=== PATIENT | male | born 1960 | race Caucasian/White ===

== ENCOUNTER 2022-02-08 09:08 | Emergency (ER) | payer OTHER, MEDICAID, SELFPAY ==
[2022-02-08] VITALS (11 sets, daily range): BP systolic 111–170; BP diastolic 68–94; PULSE 65–85; RESP 6–23; TEMP 36.2; O2SAT 96–99; BMI 33.4
--- NOTE | 2022-02-08 09:17 | DI.RAD.S_ITS ---
PROCEDURE: XR CHEST 1V INDICATIONS: chest pain TECHNIQUE: One view of the chest was acquired. COMPARISON: [facility], CR, XR HUMERUS RT 2V, 02/08/2022, 9:46. FINDINGS: Surgical changes and devices: None. Lungs and pleura: Lungs are clear. No pleural effusions or pneumothorax. Mediastinum: Mediastinal contours appear normal. Heart size is normal. Bones and chest wall: No suspicious bony lesions. Overlying soft tissues appear unremarkable. IMPRESSION: Portable chest within normal limits. Dictated by: Rodger Angeles M.D. on 02/08/2022 at 9:11 Approved by: Rodger Angeles M.D. on 02/08/2022 at 9:11
--- NOTE | 2022-02-08 09:40 | ED_ITS ---
HPI - General Adult General Chief complaint: Syncope Stated complaint: Syncope Time Seen by Provider: 02/08/22 09:13 Source: patient Mode of arrival: Family Vehicle History of Present Illness HPI narrative: 61-year-old gentleman with a history of type 1 diabetes on Levemir and heme along, Eliquis for prior strokes, lisinopril and atorvastatin presents with vomiting since the . States vomiting simply started with no preceding fevers or stomach discomfort. He had a single episode of fecal incontinence that had completely undigested food. After 2 days persistent morning he noted some black debris in the discharge in was concerned that he irritated his stomach ulcer. He had a friend bring him some milk and that was able to calm down the vomiting and was stomach issues. He notes his blood sugars have been in the 200 range over a time period. He does not describe chest pain or dyspnea. He has not had overt abdominal pain. He has not had any black stools and the black debris in the emesis has been absent for the last 48 hours. He still somewhat lightheaded when he is standing and today in the shower had a syncopal episode he fell landing on his right shoulder and complains of upper arm pain and has an abrasion to that area. He did not hit his head with the fall. He is awake alert and has no additional complaints at this time. Related Data Previous Rx's Medication Instructions Recorded morphine 15 mg immediate release 15 mg PO Q6H PRN #14 tab 02/08/22 tablet ondansetron 4 mg disintegrating 4 mg PO Q8H PRN #14 tab 02/08/22 tablet Allergies Allergy/AdvReac Type Severity Reaction Status Date / Time fentanyl AdvReac Verified 02/08/22 11:13 hydrocodone AdvReac Verified 02/08/22 11:13 Review of Systems Review of Systems Narrative: Remainder of complete review of systems is otherwise unremarkable except for that included in the HPI. Patient History Medical History Hyperlipidemia Hypertension Stroke Type 1 diabetes Social History Smoking Status: Former smoker Smoking Status: Former smoker alcohol intake frequency: 0-2 drinks per day Substance Use Type: does not use Exam Initial Vital Signs Initial Vital Signs: Vital Signs Pulse Rate 74 02/08/22 09:18 Respiratory Rate 21 02/08/22 09:18 General: Healthy appearing, in no acute distress. Nontoxic. Able to give a complete and coherent history. Well-nourished well-developed HEENT: Moist mucous membranes despite reports of persistent emesis and minimal intake normal sclera with reactive pupils, Neck: No JVD, supple Respiratory: Lungs are clear to auscultation, no wheezing no rales no rhonchi. Full and symmetrical air movement Cardiac: Regular rate and rhythm no murmurs no bruits Abdomen: Soft, nontender, good bowel tones, no flank pain Skin: Warm and dry, mild abrasion over the lateral aspect of the right upper arm. Neurologic: Grossly neurologically intact with no obvious asymmetries or abnormalities Extremities: Mild tenderness to the proximal humerus without tenderness to the shoulder joint, clavicle AC joint, neurovascularly intact distally Psych: Cooperative, appropriate insight and affect Course Orders Ordered: ED Orders 02/08/22 09:17 XR chest 1V Stat EKG-12 Lead Stat 02/08/22 09:38 Complete Blood Count AUTO DIFF Stat Comprehensive Metabolic Panel Stat Lipase Stat Magnesium Stat Troponin & CK Cardiac Panel Stat 02/08/22 09:46 XR humerus RT 2V Stat Discontinued Medications Sodium Chloride (Normal Saline 0.9%) 1,000 mls @ 1,000 mls/hr IV BOLUS ONE Stop: 02/08/22 10:45 Last Infusion: 02/08/22 15:03 Dose: 0 mls/hr Documented by: Admin: 02/08/22 11:18 Dose: 1,000 mls/hr Documented by: TAVARES Sodium Chloride (Normal Saline 0.9%) 1,000 mls @ 1,000 mls/hr IV BOLUS ONE Stop: 02/08/22 12:09 Last Infusion: 02/08/22 11:51 Dose: 0 mls/hr Documented by: Admin: 02/08/22 10:00 Dose: 1,000 mls/hr Documented by: SHAILESH Morphine Sulfate (Morphine 10 Mg/0.5 Ml Oral Syringe) 10 mg PO NOW ONE Stop: 02/08/22 13:51 Last Admin: 02/08/22 14:07 Dose: Not Given Documented by: KVNG Morphine Sulfate (Morphine Ir 15 Mg Tablet) 15 mg PO NOW ONE Stop: 02/08/22 13:54 Last Admin: 02/08/22 14:40 Dose: 15 mg Documented by: KVNG Ondansetron HCl (Ondansetron 4 Mg/2 Ml Inj) 4 mg IV NOW ONE Stop: 02/08/22 09:47 Vital Signs Vital signs: Vital Signs - 8 hr 02/08/22 10:30 02/08/22 11:00 02/08/22 11:13 Pulse Rate 65 70 Pulse Rate [Orthostatic Lying] 70 Pulse Rate [Orthostatic Standing] 85 Respiratory Rate 15 6 L Blood Pressure 130/72 161/94 H Pulse Oximetry 97 97 02/08/22 11:30 02/08/22 12:00 02/08/22 15:04 Pulse Rate 69 66 77 Pulse Rate [Orthostatic Lying] Pulse Rate [Orthostatic Standing] Respiratory Rate 19 13 20 Blood Pressure 152/88 H 138/68 170/89 H Pulse Oximetry 99 96 96 Medical Decision Making Lab Data Lab results narrative: Anion gap is normal at 11.0 Result diagrams: 02/08/22 09:38 02/08/22 09:38 Labs: Lab Results 02/08/22 02/08/22 Range/Units 09:38 09:38 WBC 12.6 H (4.5-11.0) X10^3/uL RBC 5.52 (4.5-5.9) X10^6/uL Hgb 15.9 (13.5-17.5) g/dL Hct 47.9 (41-53) % MCV 86.7 (80-100) fL MCH 28.8 (26-34) PG MCHC 33.3 (30-36) % RDW 13.3 (11.6-14.8) % Plt Count 219 (150-400) X10^3/uL Neut % (Auto) 71.7 (50-75) % Lymph % (Auto) 15.9 L (25-40) % [place] % (Auto) 10.6 (3-14) % Eos % (Auto) 0.8 L (2-4) % Baso % (Auto) 1.0 (0-2) % Neut # (Auto) 9000 H (6718-1761) /uL Lymph # (Auto) 2000 (3782-7475) /uL [place] # (Auto) 1300 H (0-900) /uL Eos # (Auto) 100 (0-450) /uL Baso # (Auto) 100 (0-100) /uL Sodium 131 L (137-145) mmol/L Potassium 3.9 (3.4-5.1) mmol/L Chloride 94 L (98-107) mmol/L Carbon Dioxide 26 (22-32) mmol/L BUN 52 H (9-20) mg/dL Creatinine 1.51 H (0.66-1.25) mg/dL Estimated GFR 52 L (>60) mL/min BUN/Creatinine Ratio 34.4 H (6-22) Glucose 213 H (80-110) mg/dL Calcium 9.1 (8.4-10.2) mg/dL Magnesium 1.8 (1.6-2.3) mg/dL Total Bilirubin 1.3 (0.2-1.3) mg/dL AST 31 (17-59) IU/L ALT 29 (<50) IU/L Alkaline Phosphatase 78 (38-126) U/L Total Creatine Kinase 235 H (55-170) U/L CK-MB (CK-2) 4.68 H (<2.37) ng/mL CK-MB (CK-2) Rel Index 2.0 (1.5-5.0) % Troponin I 0.021 (0.01-0.034) ng/mL Total Protein 7.1 (6.3-8.2) g/dL Albumin 3.9 (3.5-5.0) g/dL Globulin 3.2 (1.7-4.1) g/dL Albumin/Globulin Ratio 1.2 (1.0-2.8) Lipase 65 (23-300) U/L Imaging Data Chest x-ray: Radiologist's Impression: FINDINGS:? ? Surgical changes and devices:? None.? ? Lungs and pleura:? Lungs are clear.? No pleural effusions or pneumothorax.? ? Mediastinum:? Mediastinal contours appear normal.? Heart size is normal.? ? Bones and chest wall:? No suspicious bony lesions.? Overlying soft tissues appear unremarkable.? ? ? IMPRESSION:? ? Portable chest within normal limits. ? ? ? Dictated by: Rodger Angeles M.D. on 02/08/2022 at 9:11? ?? Humerus XR: Radiologist's Impression: FINDINGS:? ? Bones:? No fractures or dislocations.? No suspicious bony lesions.? ? Of the humeral head can be seen.? Age-appropriate bony degenerative changes are seen, including mild subacromial spurring. ? Soft tissues:? A mild amount of right shoulder calcific tendinopathy can be seen. The visualized lung demonstrates an unremarkable appearance. ? ? IMPRESSION:? Degenerative and postoperative change, without an acute plain film abnormality seen. ? ? Dictated by: Rodger Angeles M.D. on 02/08/2022 at 9:11? ?? ECG Data Interpretation: Sinus rhythm at a rate of 71 Normal intervals, normal axis No acute ischemic changes MDM Narrative Medical decision making narrative: 61-year-old gentleman with history of type 1 diabetes had what he felt was food poisoning initially the vomiting then led to irritation of his stomach ulcer with minor episodes of black emesis (no signs of acute blood loss with hemoglobin 15.9 and hematocrit 47.9), then an episode of undigested food completely transiting and causing fecal incontinence with recurrent vomiting over the last 48 hours. There is no sign of infection, diabetic ketoacidosis, surgical abdomen or bowel obstruction, acute coronary syndrome. Uncertain etiology for his nausea. He has been given of L of fluid. Creatinine is slightly elevated at 1.5 with no prior for comparison. After the 1 L of fluid he has of pulse rise of 15 beats when standing will go ahead and do a 2 L of fluid. With the complaints of the right upper arm pain, there is no evidence of fracture, dislocation or obvious soft tissue injury. He will be placed in a sling for comfort and instructed to follow-up with his primary care doctor or or thopedics if the area continues to worsen. In the past, oral morphine has been effective for him for pain control. He does not get the ?high? feeling but it is effective for controlling the pain. Will give him a brief prescription of this. Be discharged home with Zofran to help with nausea. Questions are answered and he is safe for home discharge Discharge Plan Departure Patient Disposition: Home Clinical Impression: Syncope due to orthostatic hypotension, Type 1 diabetes, Contusion of arm, right Nausea & vomiting Qualifiers: Vomiting type: unspecified Qualified Code(s): R11.2 - Nausea with vomiting, unspecified Instructions: DI for Orthostatic Hypotension, DI for Arm Pain Activity Restrictions/Additional Instructions: Thank you for coming in today I am sorry that your having so much vomiting. Your given 2 L of fluid and this definitely helped with your orthostatic hypotension. You did injure your upper arm however there are no broken bones. You have been given a sling for comfort. I will give you an additional prescription for oral morphine to help with pain at home. I will give you oral Zofran to have should you have additional nausea at home Your workup otherwise was quite reassuring. There is no evidence of acute infection, diabetic ketoacidosis, heart attack or stroke. If you find that you are getting worse or develop any new symptoms, please feel free to return to the emergency department for further evaluation. Prescriptions: New morphine 15 mg tablet 15 mg PO Q6H PRN (Reason: pain) Qty: 14 0RF ondansetron 4 mg tablet,disintegrating 4 mg PO Q8H PRN (Reason: nausea and vomiting) Qty: 14 0RF Referrals: Amaya Jackson ARNP [Primary Care Provider] -
--- NOTE | 2022-02-08 09:46 | DI.RAD.S_ITS ---
PROCEDURE: XR HUMERUS RT 2V INDICATIONS: fall, pain TECHNIQUE: 2 views of the humerus were acquired. COMPARISON: [facility], CR, XR CHEST 1V, 02/08/2022, 9:26. FINDINGS: Bones: No fractures or dislocations. No suspicious bony lesions. Of the humeral head can be seen. Age-appropriate bony degenerative changes are seen, including mild subacromial spurring. Soft tissues: A mild amount of right shoulder calcific tendinopathy can be seen. The visualized lung demonstrates an unremarkable appearance. IMPRESSION: Degenerative and postoperative change, without an acute plain film abnormality seen. Dictated by: Rodger Angeles M.D. on 02/08/2022 at 9:11 Approved by: Rodger Angeles M.D. on 02/08/2022 at 9:12
[2022-02-08 09:47] LABS: Add Manual Diff / Slide Review NO; Basophils Absolute Auto 100 /uL (0-100); Eosinophils Absolute Auto 100 /uL (0-450); Eosinophils Percent Auto 0.8 % (2-4); Hematocrit 47.9 % (41-53); Hemoglobin 15.9 g/dL (13.5-17.5); Lymphocytes Absolute Auto 2000 /uL (1100-4500); Lymphocytes Percent Auto 15.9 % (25-40); Mean Corpuscular HGB Conc 33.3 % (30-36); Mean Corpuscular Hemoglobin 28.8 PG (26-34); Mean Corpuscular Volume 86.7 fL (80-100); Monocytes Absolute Auto 1300 /uL (0-900); Monocytes Percent Auto 10.6 % (3-14); Neutrophils Absolute Auto 9000 /uL (1500-7000); Neutrophils Percent Auto 71.7 % (50-75); Platelet Count 219 X10^3/uL (150-400); Red Blood Cell Count 5.52 X10^6/uL (4.5-5.9); Red Cell Distribution Width 13.3 % (11.6-14.8); White Blood Cell Count 12.6 X10^3/uL (4.5-11.0)
[2022-02-08 10:00] LABS: Alanine Aminotransferase 29 IU/L (<50); Albumin 3.9 g/dL (3.5-5.0); Albumin Globulin Ratio 1.2 (1.0-2.8); Alkaline Phosphatase 78 U/L (38-126); Aspartate Aminotransferase 31 IU/L (17-59); BUN Creatinine Ratio 34.4 (6-22); Bilirubin Total 1.3 mg/dL (0.2-1.3); Blood Urea Nitrogen 52 mg/dL (9-20); Calcium 9.1 mg/dL (8.4-10.2); Carbon Dioxide 26 mmol/L (22-32); Chloride 94 mmol/L (98-107); Creatine Kinase 235 U/L (55-170); Estimated Glomerular Filt Rate 52 mL/min (>60); Globulin 3.2 g/dL (1.7-4.1); Glucose 213 mg/dL (80-110); HEMOLYSIS < 15 (0-50); Lipase 65 U/L (23-300); Magnesium 1.8 mg/dL (1.6-2.3); Potassium 3.9 mmol/L (3.4-5.1); Sodium 131 mmol/L (137-145); Total Protein 7.1 g/dL (6.3-8.2)
[2022-02-08] MEDS: SODIUM CHLORIDE 0.9% 1,000 ML 1000 ML IV ×2 (10:00→11:18)
[2022-02-08 10:12] LABS: Troponin I 0.021 ng/mL (0.01-0.034)
[2022-02-08 10:15] LABS: Creatine Kinase MB 4.68 ng/mL (<2.37)
[2022-02-08] MEDS: MORPHINE IR 15 MG TABLET PO (14:40)
--- NOTE | 2022-02-08 15:04 | PC.NURSE ---
1455 pt amb ind with steady gait denies further nausea/dizziness alert/oriented x3 taking po fluids distal CMS intact to RUE with sling applied
== END 2022-02-08 15:30 | disposition home or self-care (01) ==
PROVIDERS: Emergency Provider Emergency Medicine; PCP Nurse Practitioner
DX: I95.1 Orthostatic hypotension (principal); R11.2 Nausea with vomiting, unspecified; S40.021A Contusion of right upper arm, initial encounter; Z79.01 Long term (current) use of anticoagulants
CPT/HCPCS: 36415; 71045; 73060; 80053; 82550; 82553; 83690; 83735; 84484; 85025; 93005; 96360; 96361; 99284

== ENCOUNTER 2022-06-20 10:34 | Observation (INO) | payer OTHER, MEDICAID, SELFPAY ==
[2022-06-20] VITALS (45 sets, daily range): BP systolic 101–207; BP diastolic 57–101; PULSE 67–106; RESP 0–34; TEMP 36.5–36.6; O2SAT 93–102; BMI 79.9; BMI 36.2
--- NOTE | 2022-06-20 11:13 | DI.RAD.S_ITS ---
PROCEDURE: XR CHEST 1V INDICATIONS: possible DKA TECHNIQUE: One view of the chest was acquired. COMPARISON: [facility], , XR CHEST 1V, 02/08/2022, 9:26. FINDINGS: Surgical changes and devices: An anchor can be seen involving the right humeral head. Lungs and pleura: On this semiupright portable chest examination, no large pneumothorax or large pleural effusions are seen. No focal infiltrates are seen. Mediastinum: Mediastinal contours appear normal. Heart size is normal. Bones and chest wall: Age-appropriate bony degenerative changes are seen. No suspicious bony lesions. Overlying soft tissues appear unremarkable. IMPRESSION: Portable chest within normal limits. Dictated by: Rodger Angeles M.D. on 06/20/2022 at 10:35 Approved by: Rodger Angeles M.D. on 06/20/2022 at 10:35
[2022-06-20] MEDS: SODIUM CHLORIDE 0.9% 1,000 ML 1000 ML IV ×2 (11:26→14:04)
[2022-06-20] MEDS: LABETALOL 20 MG/4 ML SYRINGE IV ×2 (11:26→14:03)
[2022-06-20 11:28] LABS: Add Manual Diff / Slide Review NO; Basophils Absolute Auto 100 /uL (0-100); Basophils Percent Auto 0.5 % (0-2); Eosinophils Absolute Auto 0 /uL (0-450); Hematocrit 48.1 % (41-53); Hemoglobin 15.9 g/dL (13.5-17.5); Lymphocytes Absolute Auto 800 /uL (1100-4500); Mean Corpuscular HGB Conc 33.1 % (30-36); Mean Corpuscular Hemoglobin 28.8 PG (26-34); Mean Corpuscular Volume 87.2 fL (80-100); Monocytes Absolute Auto 300 /uL (0-900); Monocytes Percent Auto 1.6 % (3-14); Neutrophils Absolute Auto 15400 /uL (1500-7000); Neutrophils Percent Auto 92.9 % (50-75); Platelet Count 268 X10^3/uL (150-400); Red Blood Cell Count 5.51 X10^6/uL (4.5-5.9); Red Cell Distribution Width 13.3 % (11.6-14.8); White Blood Cell Count 16.6 X10^3/uL (4.5-11.0)
[2022-06-20 11:39] LABS: Lipase 220 U/L (23-300); Magnesium 1.5 mg/dL (1.6-2.3)
[2022-06-20 11:41] LABS: Alanine Aminotransferase 28 IU/L (<50); Albumin 4.4 g/dL (3.5-5.0); Albumin Globulin Ratio 1.2 (1.0-2.8); Alkaline Phosphatase 89 U/L (38-126); Aspartate Aminotransferase 36 IU/L (17-59); BUN Creatinine Ratio 23.6 (6-22); Bilirubin Total 1.2 mg/dL (0.2-1.3); Blood Urea Nitrogen 21 mg/dL (9-20); Calcium 9.3 mg/dL (8.4-10.2); Carbon Dioxide 19 mmol/L (22-32); Chloride 99 mmol/L (98-107); Estimated Glomerular Filt Rate > 60 mL/min (>60); Globulin 3.8 g/dL (1.7-4.1); Glucose 370 mg/dL (80-110); Potassium 4.9 mmol/L (3.4-5.1); Sodium 135 mmol/L (137-145); Total Protein 8.2 g/dL (6.3-8.2)
[2022-06-20 11:42] LABS: Ketones (Beta-Hydroxybutyrate) 3.66 mmol/L (<0.27)
[2022-06-20 11:45] LABS: HEMOLYSIS 117 (0-50)
[2022-06-20 11:49] LABS: NT-proBNP (BNP-Adult 18+) 52 pg/mL (<125)
[2022-06-20 11:56] LABS: Procalcitonin 0.07 ng/mL (<0.5)
[2022-06-20 12:06] LABS: pH ABG 7.47 (7.35-7.45)
[2022-06-20 12:07] LABS: Fractionated Inspired Oxygen 20; HCO3 ABG 18 mmol/L (22-26); Oxygen Saturation ABG 99 % (95-100); PCO2 ABG 23.9 mmHg (35-45); PO2 ABG 128 mmHg (80-100); TCO2 ABG 18 mmol/L (21-31)
[2022-06-20 12:14] LABS: Lactate (Lactic Acid) 4.4 mmol/L (0.7-2.1)
[2022-06-20 12:57] LABS: Bilirubin Urine UA NEGATIVE (NEGATIVE); Color Urine UA YELLOW; Glucose Urine UA 2+ g/dL (Negative); Ketones Urine UA 2+ (NEGATIVE); Leukocyte Esterase Urine UA NEGATIVE (NEGATIVE); Nitrite Urine UA NEGATIVE (Negative); Occult Blood Urine UA 1+ (Negative); Protein Urine UA 3+ (Negative); Specific Gravity Urine UA 1.015 (1.000-1.035); Urobilinogen Urine UA 0.2 E.U./dL (0.2)
[2022-06-20 12:59] LABS: Appearance Urine UA Slightly Cloudy
[2022-06-20] MEDS: METOCLOPRAMIDE 10 MG/2 ML INJ IV (13:04)
[2022-06-20 13:05] LABS: Amorphous Sediment Urine 1+; Bacteria Urine None Seen; Culture Indicated Urine Cult Not Indicated; RBC Urine 1-5/HPF (0-5/HPF); Squamous Epithelial Cell Urine 0-1 /HPF (0-5/HPF); WBC Urine 0-1/HPF (0-5/HPF)
--- NOTE | 2022-06-20 13:13 | ED.NAVMDI ---
HPI - Nausea/Vomiting/Diarrhea General Chief complaint: Nausea/Vomiting/Diarrhea Stated complaint: nausea, vomting, diarrhea Time Seen by Provider: 06/20/22 11:11 Source: EMS Mode of arrival: EMS History of Present Illness HPI Narrative: 61-year-old gentleman with history of type 1 diabetes, hypertension, prior stroke currently on Eliquis, hyperlipidemia who presents with abdominal pain that started yesterday, increased nausea to the point he was unable to tolerate any fluid last night. He is having watery nonbloody diarrhea associated with abdominal pain. He has not had any recent antibiotics. He states that he has had a minor cough but nothing that has particularly bothered him. He does note that yesterday he did began having some mild dysuria but no overt flank pain He complains of no headaches or neck stiffness. He notes that he does have bed bug bites on his ankles and wrists, there are bed bugs in his home and he is aware, his mother with whom he used to live approximately 2 weeks ago and dealing with the bedbugs has not been something he has yet had a chance to do. He describes no chest pain or palpitations. No paresthesias but does complain of overall global weakness. Related Data Previous Rx's Medication Instructions Recorded morphine 15 mg immediate release 15 mg PO Q6H PRN pain #14 tabs 02/08/22 tablet ondansetron 4 mg disintegrating 4 mg PO Q8H PRN nausea and 02/08/22 tablet vomiting #14 tabs Allergies Allergy/AdvReac Type Severity Reaction Status Date / Time fentanyl AdvReac Verified 02/08/22 11:13 hydrocodone AdvReac Verified 02/08/22 11:13 Review of Systems Review of Systems Narrative: Remainder of complete review of systems is otherwise unremarkable except for that included in the HPI. Patient History Medical History Hyperlipidemia Hypertension Stroke Type 1 diabetes Social History Smoking Status: Former smoker Smoking Status: Former smoker alcohol intake frequency: 0-2 drinks per day Substance Use Type: does not use Exam Initial Vital Signs Initial Vital Signs: Vital Signs Pulse Rate 106 H 06/20/22 10:41 Respiratory Rate 22 06/20/22 10:41 Pulse Oximetry 97 06/20/22 10:41 General: Intermittent vomiting, mildly pale but Able to give a complete and coherent history. Well-nourished well-developed HEENT: Dry mucous membranes, normal sclera with reactive pupils, Neck: No JVD, supple Respiratory: Lungs are clear to auscultation, no wheezing no rales no rhonchi. Full and symmetrical air movement Cardiac: Regular rate and rhythm no murmurs no bruits Abdomen: Soft, tender in the right lower/middle and upper quadrants without rebound or guarding. 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 No obvious infection. He has significant onychomycosis Neurologic: Globally weak but Grossly neurologically intact with no obvious asymmetries or abnormalities Extremities: No trauma, Psych: Cooperative, appropriate insight and affect Course Orders Ordered: ED Orders 06/20/22 10:45 Blood Culture Stat Complete Blood Count AUTO DIFF Stat Comprehensive Metabolic Panel Stat Ketones (Beta-Hydroxybutyrate) Stat Lactate (Lactic Acid) Stat Lipase Stat Magnesium Stat NT-proBNP (BNP-Adult 18+) Stat Procalcitonin Stat Troponin I Stat 06/20/22 11:13 XR chest 1V Stat EKG-12 Lead Stat 06/20/22 11:44 Arterial Blood Gas Stat 06/20/22 12:15 Urinalysis and Microscopic Stat 06/20/22 12:50 Respiratory Panel (Film Array) Stat 06/20/22 13:27 CT abdomen pelvis w con Stat INSULIN DRIP PREMIX (Myxredlin Drip Premix) 100 unit in 100 mls @ 6 mls/hr IV TITRATE ISIS; Protocol Last Titration: 06/20/22 16:07 Dose: 8 mls/hr, 8 mls/hr Documented By: KAEL Co-signed By: KASI Admin: 06/20/22 14:07 Dose: 6 mls/hr, 6 mls/hr Documented By: KAEL Co-signed By: BRONSON Sodium Chloride (Normal Saline 0.9%) 1,000 mls @ 150 mls/hr IV CONT ISIS Last Admin: 06/20/22 16:28 Dose: 150 mls/hr Discontinued Medications Sodium Chloride (Normal Saline 0.9%) 1,000 mls @ 1,000 mls/hr IV BOLUS ONE Stop: 06/20/22 12:10 Last Infusion: 06/20/22 12:40 Dose: 0 mls/hr Documented By: Admin: 06/20/22 11:26 Dose: 1,000 mls/hr Documented By: KAEL Sodium Chloride (Normal Saline 0.9%) 1,000 mls @ 1,000 mls/hr IV BOLUS ONE Stop: 06/20/22 14:28 Last Infusion: 06/20/22 16:07 Dose: 0 mls/hr Documented By: Admin: 06/20/22 14:04 Dose: 1,000 mls/hr Documented By: KAEL Piperacillin Sod/Tazobactam (Sod 4.5 gm/ Sodium Chloride) 100 mls @ 200 mls/hr IV NOW ONE Stop: 06/20/22 13:30 Last Infusion: 06/20/22 14:48 Dose: 0 mls/hr Documented By: Admin: 06/20/22 14:04 Dose: 200 mls/hr Documented By: KAEL Labetalol HCl (Labetalol 20 Mg/4 Ml Syringe) 20 mg IV NOW ONE Stop: 06/20/22 11:16 Last Admin: 06/20/22 11:26 Dose: 20 mg Documented By: KAEL Labetalol HCl (Labetalol 20 Mg/4 Ml Syringe) 20 mg IV NOW ONE Stop: 06/20/22 13:30 Last Admin: 06/20/22 14:03 Dose: 20 mg Documented By: KAEL Metoclopramide HCl (Metoclopramide 10 Mg/2 Ml Inj) 10 mg IV NOW ONE Stop: 06/20/22 12:57 Last Admin: 06/20/22 13:04 Dose: 10 mg Documented By: MARCELLUS Vital Signs Vital signs: Vital Signs - 8 hr 06/20/22 10:56 06/20/22 11:26 06/20/22 11:49 Temperature 97.7 F Pulse Rate 104 H 98 H 67 Respiratory Rate 22 20 Blood Pressure 197/99 H 200/89 H 168/79 H Pulse Oximetry 100 102 H Oxygen Delivery Method Room Air Room Air 06/20/22 12:27 06/20/22 10:41 06/20/22 10:43 Temperature Pulse Rate 96 H 106 H Respiratory Rate 22 Blood Pressure 175/85 H 197/99 H Pulse Oximetry 97 Oxygen Delivery Method 06/20/22 10:43 06/20/22 11:00 06/20/22 11:00 Temperature Pulse Rate 104 H 88 Respiratory Rate 21 20 Blood Pressure 200/89 H Pulse Oximetry 100 Oxygen Delivery Method 06/20/22 11:30 06/20/22 11:30 06/20/22 11:39 Temperature Pulse Rate 101 H 94 H Respiratory Rate 18 18 Blood Pressure 197/101 H Pulse Oximetry 99 100 Oxygen Delivery Method 06/20/22 11:39 06/20/22 11:40 06/20/22 11:40 Temperature Pulse Rate 91 H Respiratory Rate 11 L Blood Pressure 198/97 H 195/92 H Pulse Oximetry 100 Oxygen Delivery Method 06/20/22 11:43 06/20/22 11:43 06/20/22 12:00 Temperature Pulse Rate 92 H Respiratory Rate 10 L Blood Pressure 168/79 H 175/85 H Pulse Oximetry 100 Oxygen Delivery Method 06/20/22 12:00 06/20/22 12:30 06/20/22 12:31 Temperature Pulse Rate 90 93 H Respiratory Rate 9 L 30 H Blood Pressure 207/92 H Pulse Oximetry 97 Oxygen Delivery Method 06/20/22 12:31 06/20/22 13:30 06/20/22 14:03 Temperature Pulse Rate 94 H 97 H 94 H Respiratory Rate 29 H 17 Blood Pressure 171/76 H 174/80 H Pulse Oximetry 96 Oxygen Delivery Method Room Air 06/20/22 13:00 06/20/22 13:01 06/20/22 13:01 Temperature Pulse Rate 94 H 95 H Respiratory Rate 22 25 H Blood Pressure 171/76 H Pulse Oximetry 100 100 Oxygen Delivery Method 06/20/22 13:30 06/20/22 13:31 06/20/22 13:31 Temperature Pulse Rate 98 H 97 H Respiratory Rate 19 19 Blood Pressure 191/93 H Pulse Oximetry Oxygen Delivery Method 06/20/22 13:53 06/20/22 13:53 06/20/22 14:00 Temperature Pulse Rate 98 H Respiratory Rate 12 Blood Pressure 176/89 H 174/80 H Pulse Oximetry 100 Oxygen Delivery Method 06/20/22 14:00 06/20/22 14:13 06/20/22 14:13 Temperature Pulse Rate 101 H 100 H Respiratory Rate 0 L 15 Blood Pressure 164/81 H Pulse Oximetry 98 98 Oxygen Delivery Method 06/20/22 14:17 06/20/22 14:17 06/20/22 14:30 Temperature Pulse Rate 97 H Respiratory Rate 21 Blood Pressure 169/92 H 176/85 H Pulse Oximetry 98 Oxygen Delivery Method 06/20/22 14:30 06/20/22 15:00 06/20/22 15:00 Temperature Pulse Rate 93 H 90 Respiratory Rate 24 16 Blood Pressure 183/85 H Pulse Oximetry 98 96 Oxygen Delivery Method 06/20/22 15:29 06/20/22 15:30 06/20/22 15:32 Temperature Pulse Rate 97 H 98 H Respiratory Rate 17 Blood Pressure 179/82 H 179/82 H Pulse Oximetry 93 Oxygen Delivery Method MDM - Nausea/Vomiting/Diarrhea Lab Data Result diagrams: 06/20/22 10:45 06/20/22 10:45 Labs: Lab Results 06/20/22 06/20/22 06/20/22 Range/Units 10:45 10:45 10:45 WBC 16.6 H (4.5-11.0) X10^3/uL RBC 5.51 (4.5-5.9) X10^6/uL Hgb 15.9 (13.5-17.5) g/dL Hct 48.1 (41-53) % MCV 87.2 (80-100) fL MCH 28.8 (26-34) PG MCHC 33.1 (30-36) % RDW 13.3 (11.6-14.8) % Plt Count 268 (150-400) X10^3/uL Neut % (Auto) 92.9 H (50-75) % Lymph % (Auto) 5.0 L (25-40) % [place] % (Auto) 1.6 L (3-14) % Eos % (Auto) 0.0 L (2-4) % Baso % (Auto) 0.5 (0-2) % Neut # (Auto) 05668 H (8029-3900) /uL Lymph # (Auto) 800 L (3069-8300) /uL [place] # (Auto) 300 (0-900) /uL Eos # (Auto) 0 (0-450) /uL Baso # (Auto) 100 (0-100) /uL ABG pH (7.35-7.45) ABG pCO2 (35-45) mmHg ABG pO2 (80-100) mmHg ABG HCO3 (22-26) mmol/L ABG Total CO2 (21-31) mmol/L ABG O2 Saturation (95-100) % ABG Base Excess (-2-2) mmol/L FiO2 Sodium 135 L (137-145) mmol/L Potassium 4.9 (3.4-5.1) mmol/L Chloride 99 (98-107) mmol/L Carbon Dioxide 19 L (22-32) mmol/L BUN 21 H (9-20) mg/dL Creatinine 0.89 (0.66-1.25) mg/dL Estimated GFR > 60 (>60) mL/min BUN/Creatinine Ratio 23.6 H (6-22) Glucose 370 H (80-110) mg/dL Lactate (0.7-2.1) mmol/L Calcium 9.3 (8.4-10.2) mg/dL Magnesium 1.5 L (1.6-2.3) mg/dL Total Bilirubin 1.2 (0.2-1.3) mg/dL AST 36 (17-59) IU/L ALT 28 (<50) IU/L Alkaline Phosphatase 89 (38-126) U/L Troponin I < 0.012 (0.01-0.034) ng/mL NT-Pro-B Natriuret Pep 52 (<125) pg/mL Total Protein 8.2 (6.3-8.2) g/dL Albumin 4.4 (3.5-5.0) g/dL Globulin 3.8 (1.7-4.1) g/dL Albumin/Globulin Ratio 1.2 (1.0-2.8) Lipase 220 (23-300) U/L Procalcitonin 0.07 (<0.5) ng/mL Urine Color Urine Appearance Urine pH (4.5-8.0) Ur Specific [place] (1.000-1.035) Urine Protein (Negative) Urine Glucose (UA) (Negative) g/dL Urine Ketones (NEGATIVE) Urine Occult Blood (Negative) Urine Nitrate (Negative) Urine Bilirubin (NEGATIVE) Urine Urobilinogen (0.2) E.U./dL Ur Leukocyte Esterase (NEGATIVE) Urine RBC (0-5/HPF) Urine WBC (0-5/HPF) Ur Squamous Epith Cells (0-5/HPF) Amorphous Sediment Urine Bacteria (None) Ur Culture Indicated? Stl C. cayetanensis PCR Stool Rotavirus (PCR) Stool Adenovirus (PCR) Stool Astrovirus (PCR) Stool Cryptosporidium PCR Stl E.coli Shiga Tox PCR St Sh/Enteroin Ecoli PCR Stool E coli O157 PCR Stl Enterotoxigenic E PCR Stool EPEC (PCR) Stl E. histolytica PCR Stool Giardia Lamblia PCR Stool Sapovirus (PCR) Stl P. shigelloides PCR St Y.enterocolitica PCR Stool Vibrio (PCR) Stl Vibrio cholerae PCR Stl Enteroaggr Ecoli PCR Stl Norovirus GI/GII PCR Ketones 3.66 H (<0.27) mmol/L Chlamy pneumoniae PCR (Not Detect) Adenovirus (PCR) (Not Detect) B. pertussis DNA (PCR) (Not Detecte) B.parapertussis DNA PCR (Not Detecte) Campylobacter (PCR) C. difficile Tox (PCR) Coronavirus OC43 (PCR) (Not Detect) Coronavirus HKU1 (PCR) (Not Detect) Coronavirus 229E (PCR) (Not Detect) SARS-CoV-2 (PCR) (Not Detecte) Coronavirus NL63 (PCR) (Not Detect) Human Metapneumovir PCR (Not Detect) Influenza Type A (PCR) (Not Detect) Influenza Type B (PCR) (Not Detect) M. pneumoniae (PCR) (Not Detect) Parainfluenza 1 (PCR) (Not Detect) Parainfluenza 2 (PCR) (Not Detect) Parainfluenza 3 (PCR) (Not Detect) Parainfluenza 4 (PCR) (Not Detect) RSV (PCR) (Not Detect) Entero/Rhino (PCR) (Not Detect) Salmonella (PCR) 06/20/22 06/20/22 06/20/22 Range/Units 10:45 11:44 12:15 WBC (4.5-11.0) X10^3/uL RBC (4.5-5.9) X10^6/uL Hgb (13.5-17.5) g/dL Hct (41-53) % MCV (80-100) fL MCH (26-34) PG MCHC (30-36) % RDW (11.6-14.8) % Plt Count (150-400) X10^3/uL Neut % (Auto) (50-75) % Lymph % (Auto) (25-40) % [place] % (Auto) (3-14) % Eos % (Auto) (2-4) % Baso % (Auto) (0-2) % Neut # (Auto) (6050-4174) /uL Lymph # (Auto) (9597-1599) /uL [place] # (Auto) (0-900) /uL Eos # (Auto) (0-450) /uL Baso # (Auto) (0-100) /uL ABG pH 7.47 H (7.35-7.45) ABG pCO2 23.9 L* (35-45) mmHg ABG pO2 128 H (80-100) mmHg ABG HCO3 18 L (22-26) mmol/L ABG Total CO2 18 L (21-31) mmol/L ABG O2 Saturation 99 (95-100) % ABG Base Excess -6.0 L (-2-2) mmol/L FiO2 20 Sodium (137-145) mmol/L Potassium (3.4-5.1) mmol/L Chloride (98-107) mmol/L Carbon Dioxide (22-32) mmol/L BUN (9-20) mg/dL Creatinine (0.66-1.25) mg/dL Estimated GFR (>60) mL/min BUN/Creatinine Ratio (6-22) Glucose (80-110) mg/dL Lactate 4.4 H* (0.7-2.1) mmol/L Calcium (8.4-10.2) mg/dL Magnesium (1.6-2.3) mg/dL Total Bilirubin (0.2-1.3) mg/dL AST (17-59) IU/L ALT (<50) IU/L Alkaline Phosphatase (38-126) U/L Troponin I (0.01-0.034) ng/mL NT-Pro-B Natriuret Pep (<125) pg/mL Total Protein (6.3-8.2) g/dL Albumin (3.5-5.0) g/dL Globulin (1.7-4.1) g/dL Albumin/Globulin Ratio (1.0-2.8) Lipase (23-300) U/L Procalcitonin (<0.5) ng/mL Urine Color Yellow Urine Appearance Slightly cloudy Urine pH 5.0 (4.5-8.0) Ur Specific [place] 1.015 (1.000-1.035) Urine Protein 3+ H (Negative) Urine Glucose (UA) 2+ H (Negative) g/dL Urine Ketones 2+ H (NEGATIVE) Urine Occult Blood 1+ H (Negative) Urine Nitrate Negative (Negative) Urine Bilirubin Negative (NEGATIVE) Urine Urobilinogen 0.2 (0.2) E.U./dL Ur Leukocyte Esterase Negative (NEGATIVE) Urine RBC 1-5/hpf (0-5/HPF) Urine WBC 0-1/hpf (0-5/HPF) Ur Squamous Epith Cells 0-1 /hpf (0-5/HPF) Amorphous Sediment 1+ Urine Bacteria None seen (None) Ur Culture Indicated? Cult not indicated Stl C. cayetanensis PCR Stool Rotavirus (PCR) Stool Adenovirus (PCR) Stool Astrovirus (PCR) Stool Cryptosporidium PCR Stl E.coli Shiga Tox PCR St Sh/Enteroin Ecoli PCR Stool E coli O157 PCR Stl Enterotoxigenic E PCR Stool EPEC (PCR) Stl E. histolytica PCR Stool Giardia Lamblia PCR Stool Sapovirus (PCR) Stl P. shigelloides PCR St Y.enterocolitica PCR Stool Vibrio (PCR) Stl Vibrio cholerae PCR Stl Enteroaggr Ecoli PCR Stl Norovirus GI/GII PCR Ketones (<0.27) mmol/L Chlamy pneumoniae PCR (Not Detect) Adenovirus (PCR) (Not Detect) B. pertussis DNA (PCR) (Not Detecte) B.parapertussis DNA PCR (Not Detecte) Campylobacter (PCR) C. difficile Tox (PCR) Coronavirus OC43 (PCR) (Not Detect) Coronavirus HKU1 (PCR) (Not Detect) Coronavirus 229E (PCR) (Not Detect) SARS-CoV-2 (PCR) (Not Detecte) Coronavirus NL63 (PCR) (Not Detect) Human Metapneumovir PCR (Not Detect) Influenza Type A (PCR) (Not Detect) Influenza Type B (PCR) (Not Detect) M. pneumoniae (PCR) (Not Detect) Parainfluenza 1 (PCR) (Not Detect) Parainfluenza 2 (PCR) (Not Detect) Parainfluenza 3 (PCR) (Not Detect) Parainfluenza 4 (PCR) (Not Detect) RSV (PCR) (Not Detect) Entero/Rhino (PCR) (Not Detect) Salmonella (PCR) 06/20/22 06/20/22 06/20/22 Range/Units 12:43 12:50 14:28 WBC (4.5-11.0) X10^3/uL RBC (4.5-5.9) X10^6/uL Hgb (13.5-17.5) g/dL Hct (41-53) % MCV (80-100) fL MCH (26-34) PG MCHC (30-36) % RDW (11.6-14.8) % Plt Count (150-400) X10^3/uL Neut % (Auto) (50-75) % Lymph % (Auto) (25-40) % [place] % (Auto) (3-14) % Eos % (Auto) (2-4) % Baso % (Auto) (0-2) % Neut # (Auto) (5423-8984) /uL Lymph # (Auto) (0897-3303) /uL [place] # (Auto) (0-900) /uL Eos # (Auto) (0-450) /uL Baso # (Auto) (0-100) /uL ABG pH (7.35-7.45) ABG pCO2 (35-45) mmHg ABG pO2 (80-100) mmHg ABG HCO3 (22-26) mmol/L ABG Total CO2 (21-31) mmol/L ABG O2 Saturation (95-100) % ABG Base Excess (-2-2) mmol/L FiO2 Sodium (137-145) mmol/L Potassium (3.4-5.1) mmol/L Chloride (98-107) mmol/L Carbon Dioxide (22-32) mmol/L BUN (9-20) mg/dL Creatinine (0.66-1.25) mg/dL Estimated GFR (>60) mL/min BUN/Creatinine Ratio (6-22) Glucose (80-110) mg/dL Lactate 3.7 H (0.7-2.1) mmol/L Calcium (8.4-10.2) mg/dL Magnesium (1.6-2.3) mg/dL Total Bilirubin (0.2-1.3) mg/dL AST (17-59) IU/L ALT (<50) IU/L Alkaline Phosphatase (38-126) U/L Troponin I (0.01-0.034) ng/mL NT-Pro-B Natriuret Pep (<125) pg/mL Total Protein (6.3-8.2) g/dL Albumin (3.5-5.0) g/dL Globulin (1.7-4.1) g/dL Albumin/Globulin Ratio (1.0-2.8) Lipase (23-300) U/L Procalcitonin (<0.5) ng/mL Urine Color Urine Appearance Urine pH (4.5-8.0) Ur Specific [place] (1.000-1.035) Urine Protein (Negative) Urine Glucose (UA) (Negative) g/dL Urine Ketones (NEGATIVE) Urine Occult Blood (Negative) Urine Nitrate (Negative) Urine Bilirubin (NEGATIVE) Urine Urobilinogen (0.2) E.U./dL Ur Leukocyte Esterase (NEGATIVE) Urine RBC (0-5/HPF) Urine WBC (0-5/HPF) Ur Squamous Epith Cells (0-5/HPF) Amorphous Sediment Urine Bacteria (None) Ur Culture Indicated? Stl C. cayetanensis PCR Cancelled Stool Rotavirus (PCR) Cancelled Stool Adenovirus (PCR) Cancelled Stool Astrovirus (PCR) Cancelled Stool Cryptosporidium PCR Cancelled Stl E.coli Shiga Tox PCR Cancelled St Sh/Enteroin Ecoli PCR Cancelled Stool E coli O157 PCR Cancelled Stl Enterotoxigenic E PCR Cancelled Stool EPEC (PCR) Cancelled Stl E. histolytica PCR Cancelled Stool Giardia Lamblia PCR Cancelled Stool Sapovirus (PCR) Cancelled Stl P. shigelloides PCR Cancelled St Y.enterocolitica PCR Cancelled Stool Vibrio (PCR) Cancelled Stl Vibrio cholerae PCR Cancelled Stl Enteroaggr Ecoli PCR Cancelled Stl Norovirus GI/GII PCR Cancelled Ketones (<0.27) mmol/L Chlamy pneumoniae PCR Not detected (Not Detect) Adenovirus (PCR) Not detected (Not Detect) B. pertussis DNA (PCR) Not detected (Not Detecte) B.parapertussis DNA PCR Not detected (Not Detecte) Campylobacter (PCR) Cancelled C. difficile Tox (PCR) Cancelled Coronavirus OC43 (PCR) Not detected (Not Detect) Coronavirus HKU1 (PCR) Not detected (Not Detect) Coronavirus 229E (PCR) Not detected (Not Detect) SARS-CoV-2 (PCR) Not detected (Not Detecte) Coronavirus NL63 (PCR) Not detected (Not Detect) Human Metapneumovir PCR Not detected (Not Detect) Influenza Type A (PCR) Not detected (Not Detect) Influenza Type B (PCR) Not detected (Not Detect) M. pneumoniae (PCR) Not detected (Not Detect) Parainfluenza 1 (PCR) Not detected (Not Detect) Parainfluenza 2 (PCR) Not detected (Not Detect) Parainfluenza 3 (PCR) Not detected (Not Detect) Parainfluenza 4 (PCR) Not detected (Not Detect) RSV (PCR) Not detected (Not Detect) Entero/Rhino (PCR) Not detected (Not Detect) Salmonella (PCR) Cancelled Point of Care Testing Glucose POC 347 Imaging Data Chest x-ray: Radiologist's Impression: FINDINGS:? ? Surgical changes and devices:? An anchor can be seen involving the right humeral head. ? Lungs and pleura:? On this semiupright portable chest examination, no large pneumothorax or large pleural effusions are seen.? No focal infiltrates are seen.? ? Mediastinum:? Mediastinal contours appear normal.? Heart size is normal.? ? Bones and chest wall:? Age-appropriate bony degenerative changes are seen.? No suspicious bony lesions.? Overlying soft tissues appear unremarkable.? IMPRESSION:? ? Portable chest within normal limits. ? ? ? Dictated by: Rodger Angeles M.D. on 06/20/2022 at 10:35 ? ? CT scan - abdomen/pelvis: Radiologist's Impression: FINDINGS:? Image quality:? Excellent.? ? Lung bases:? No pleural effusion.? ? Heart:? No significant findings.? Probable hiatal hernia. ? ? ABDOMEN: Liver:? No focal lesion. Gallbladder:? Not distended.? ? Biliary ducts:? Unremarkable.? ? Pancreas:? Punctate calcification in the head of the pancreas.? No peripancreatic fluid collection. Spleen:? Unremarkable.? ? Adrenal Glands:? Minimal thickening of the left adrenal gland.? This could be due to hyperplasia. Kidneys and Ureters:? No hydronephrosis.? Atrophy of the right kidney in comparison to the left.? Simple cyst in the right kidney.? Left kidney inferior pole low-density cyst measuring 1.7 cm, (2/39).? There is a coarse calcification.? A few cortical hypodensities which are too small to further characterize. ? Stomach and Bowel:? Stomach, small bowel loops, and colon are unremarkable.? Normal appendix. Peritoneum:? No abnormal intraperitoneal fluid.? No free air.? ? Ventral Wall: ? No hernia.? Abdominal Nodes:? No retroperitoneal or mesenteric adenopathy by size criteria.? Vessels:? Abdominal aortic aneurysm measuring up to 3.7 cm.? There is circumferential calcification.? Circumaortic left renal vein. ? PELVIS: Pelvic Organs:? Unremarkable.? ? Bladder:? Unremarkable.? ? Pelvic Nodes: No enlarged lymph nodes.? Miscellaneous:? Fat containing right inguinal hernia. ? Bones:? No suspicious lesion. ? ? IMPRESSION:? 1. No acute inflammatory process is identified.? No free fluid. ? 2. Abdominal aortic aneurysm measuring up to 3.7 cm. Recommend follow-up abdominal aortic ultrasound in 2 years. ? 3. Left Kidney complicated cyst measuring 1.7 cm.? Recommend follow-up CT or MRI renal protocol in 1 year. ? ? Dictated by: Arcenio Leon M.D. on 06/20/2022 at 14:51 ? ? ECG Data Interpretation: Sinus rhythm at a rate of 94 Left axis deviation No acute ischemic changes MDM Narrative Medical decision making narrative: 61-year-old gentleman with nausea and vomiting developing over the last 24 hours now uncontrollable. He does have type 1 diabetes and is in diabetic ketoacidosis with an anion gap of 17 and ketones present. White blood cell count is elevated with a left shift. I do not have a clear source for infection at this time. There is no evidence of meningitis, pneumonia. Urine is clear despite the mild dysuria symptoms. CT scan of the abdomen is pending with intra-abdominal source for infection certainly a possibility. He will be started on Zosyn until findings are returned. Lactic acid is elevated however I suspect this is related to his diabetic ketoacidosis and less likely to sepsis. He has not been hypotensive and in fact we have been treating his significant hypertension with IV labetalol as he is not yet able to tolerate any oral fluids or pills. There is no sign of chest pain or acute coronary syndrome. Stool sample has been obtained and sent for PCR testing. Respiratory panel is currently pending as well. As labs and studies are returning, CT scan is reassuring with no obvious intra-abdominal abscess, colon wall thickening or surgical abnormalities. No evidence of respiratory infection or bacterial pneumonia. No suggestion of meningitis. No acute skin findings aside from the minor irritation from the bed bugs at ankles and wrists. There is no evidence of acute coronary syndrome or stroke. No urinary tract infection or pyelonephritis. Is unclear why he has gone into DKA but I suspect that is is the DKA that is causing the persistent abdominal pain nausea and vomiting at this point. He is currently on an insulin drip. His anion gap was initially at 17, he has been given 3 L of fluid is currently on 150 an hour blood sugar actually increased with the 1st hour of insulin drip so the insulin drip is also increased. He is neurologically appropriate and safe for hospital admission. Care is reviewed with the hospitalist service and he will be admitted for treatment have his DKA. Discharge Plan Departure Patient Disposition: Admitted As Inpatient Clinical Impression: DKA (diabetic ketoacidosis), Abdominal pain, vomiting, and diarrhea Bedbug bite Qualifiers: Encounter type: initial encounter Qualified Code(s): W57.XXXA - Bitten or stung by nonvenomous insect and other nonvenomous arthropods, initial encounter
--- NOTE | 2022-06-20 13:27 | DI.CT.S_ITS ---
PROCEDURE: CT ABDOMEN PELVIS W CON INDICATIONS: abdominal pain, leukocytosis, TECHNIQUE: After the administration of IV contrast, axial sections were acquired from the lung bases to the pubic symphysis. Coronal and sagittal reformats were performed. For radiation dose reduction, the following was used: automated exposure control, adjustment of mA and/or kV according to patient size. COMPARISON: None. FINDINGS: Image quality: Excellent. Lung bases: No pleural effusion. Heart: No significant findings. Probable hiatal hernia. ABDOMEN: Liver: No focal lesion. Gallbladder: Not distended. Biliary ducts: Unremarkable. Pancreas: Punctate calcification in the head of the pancreas. No peripancreatic fluid collection. Spleen: Unremarkable. Adrenal Glands: Minimal thickening of the left adrenal gland. This could be due to hyperplasia. Kidneys and Ureters: No hydronephrosis. Atrophy of the right kidney in comparison to the left. Simple cyst in the right kidney. Left kidney inferior pole low-density cyst measuring 1.7 cm, (2/39). There is a coarse calcification. A few cortical hypodensities which are too small to further characterize. Stomach and Bowel: Stomach, small bowel loops, and colon are unremarkable. Normal appendix. Peritoneum: No abnormal intraperitoneal fluid. No free air. Ventral Wall: No hernia. Abdominal Nodes: No retroperitoneal or mesenteric adenopathy by size criteria. Vessels: Abdominal aortic aneurysm measuring up to 3.7 cm. There is circumferential calcification. Circumaortic left renal vein. PELVIS: Pelvic Organs: Unremarkable. Bladder: Unremarkable. Pelvic Nodes: No enlarged lymph nodes. Miscellaneous: Fat containing right inguinal hernia. Bones: No suspicious lesion. IMPRESSION: 1. No acute inflammatory process is identified. No free fluid. 2. Abdominal aortic aneurysm measuring up to 3.7 cm. Recommend follow-up abdominal aortic ultrasound in 2 years. 3. Left Kidney complicated cyst measuring 1.7 cm. Recommend follow-up CT or MRI renal protocol in 1 year. Dictated by: Arcenio Leon M.D. on 06/20/2022 at 14:51 Approved by: Arcenio Leon M.D. on 06/20/2022 at 15:05
[2022-06-20 13:30] LABS: Reflexed Lactate in 2 Hours Y
[2022-06-20] MEDS: PIPERACILLIN/TAZO 4.5 GM in SODIUM CHLORIDE 0.9% 100 ML IV (14:04)
[2022-06-20] MEDS: INSULIN DRIP PREMIX 100 UNIT/100 ML PLAST..BAG 6 UNIT IV (14:07)
[2022-06-20 14:12] LABS: Adenovirus Not Detected (Not Detect); B. parapertussis Not Detected (Not Detecte); Bordetella pertussis Not Detected (Not Detecte); Chlamydophila pneumoniae Not Detected (Not Detect); Coronavirus 229E Not Detected (Not Detect); Coronavirus HKU1 Not Detected (Not Detect); Coronavirus NL 63 Not Detected (Not Detect); Coronavirus OC43 Not Detected (Not Detect); Human Metapneumovirus Not Detected (Not Detect); Human Rhinovirus/Enterovirus Not Detected (Not Detect); Influenza A Not Detected (Not Detect); Influenza B Not Detected (Not Detect); Mycoplasma pneumoniae Not Detected (Not Detect); Parainfluenza Virus 1 Not Detected (Not Detect); Parainfluenza Virus 2 Not Detected (Not Detect); Parainfluenza Virus 3 Not Detected (Not Detect); Parainfluenza Virus 4 Not Detected (Not Detect); Respiratory Syncytial Virus Not Detected (Not Detect); SARS- CoV-2 Not Detected (Not Detecte)
[2022-06-20 14:51] LABS: Lactate 2HR (Lactic Acid Rflx) 3.7 mmol/L (0.7-2.1)
[2022-06-20 15:18] LABS: Troponin I < 0.012 ng/mL (0.01-0.034)
[2022-06-20] MEDS: SODIUM CHLORIDE 0.9% 1,000 ML 150 ML IV (16:28)
--- NOTE | 2022-06-20 16:43 | ED.NAVMDI ---
HPI - Nausea/Vomiting/Diarrhea General Chief complaint: Nausea/Vomiting/Diarrhea Stated complaint: nausea, vomting, diarrhea Time Seen by Provider: 06/20/22 11:11 Source: EMS Mode of arrival: EMS Related Data Previous Rx's Medication Instructions Recorded morphine 15 mg immediate release 15 mg PO Q6H PRN pain #14 tabs 02/08/22 tablet ondansetron 4 mg disintegrating 4 mg PO Q8H PRN nausea and 02/08/22 tablet vomiting #14 tabs Allergies Allergy/AdvReac Type Severity Reaction Status Date / Time fentanyl AdvReac Verified 02/08/22 11:13 hydrocodone AdvReac Verified 02/08/22 11:13 Patient History Medical History Hyperlipidemia Hypertension Stroke Type 1 diabetes Social History Smoking Status: Former smoker Smoking Status: Former smoker alcohol intake frequency: 0-2 drinks per day Substance Use Type: does not use Exam Initial Vital Signs Initial Vital Signs: Vital Signs Pulse Rate 106 H 06/20/22 10:41 Respiratory Rate 22 06/20/22 10:41 Pulse Oximetry 97 06/20/22 10:41 Course Orders Ordered: ED Orders 06/20/22 10:45 Blood Culture Stat Complete Blood Count AUTO DIFF Stat Comprehensive Metabolic Panel Stat Ketones (Beta-Hydroxybutyrate) Stat Lactate (Lactic Acid) Stat Lipase Stat Magnesium Stat NT-proBNP (BNP-Adult 18+) Stat Procalcitonin Stat Troponin I Stat 06/20/22 11:13 XR chest 1V Stat EKG-12 Lead Stat 06/20/22 11:44 Arterial Blood Gas Stat 06/20/22 12:15 Urinalysis and Microscopic Stat 06/20/22 12:50 Respiratory Panel (Film Array) Stat 06/20/22 13:27 CT abdomen pelvis w con Stat 06/20/22 16:32 Lactate (Lactic Acid) Q2H 06/20/22 16:38 TSH w/ Reflex to FT4 Urgent 06/20/22 16:45 Basic Metabolic Panel Q6H 06/20/22 18:32 Lactate (Lactic Acid) Q2H 06/20/22 20:32 Lactate (Lactic Acid) Q2H 06/20/22 22:32 Lactate (Lactic Acid) Q2H 06/20/22 22:45 Basic Metabolic Panel Q6H 06/21/22 05:00 CBC Auto Diff [Complete Blood Count AUTO DIFF] DAILY Magnesium DAILY 06/22/22 05:00 CBC Auto Diff [Complete Blood Count AUTO DIFF] DAILY Magnesium DAILY 06/23/22 05:00 CBC Auto Diff [Complete Blood Count AUTO DIFF] DAILY Magnesium DAILY Acetaminophen (Acetaminophen 325 Mg Tablet) 650 mg PO Q4HR PRN PRN Reason: Fever/Mild Pain (1-3) Heparin Sodium (Porcine) (Heparin 5,000 Unit/Ml Vial) 5,000 unit SUBCUT BID ISIS INSULIN DRIP PREMIX (Myxredlin Drip Premix) 100 unit in 100 mls @ 6 mls/hr IV TITRATE ISIS; Protocol Last Titration: 06/20/22 16:07 Dose: 8 mls/hr, 8 mls/hr Documented By: KAEL Co-signed By: KASI Admin: 06/20/22 14:07 Dose: 6 mls/hr, 6 mls/hr Documented By: KAEL Co-signed By: BRONSON Sodium Chloride (Normal Saline 0.9%) 1,000 mls @ 150 mls/hr IV CONT ISIS Last Admin: 06/20/22 16:28 Dose: 150 mls/hr Documented By: KAEL Potassium Chloride 20 meq/ (Sodium Chloride) 260 mls @ 100 mls/hr IV NOW ONE Stop: 06/20/22 19:07 Magnesium Sulfate (Magnesium Sulfate) 4 gm in 100 mls @ 25 mls/hr IV NOW ONE Stop: 06/20/22 20:36 Ondansetron HCl (Ondansetron 4 Mg/2 Ml Inj) 4 mg IV Q4HR PRN PRN Reason: Nausea And Vomiting Polyethylene Glycol (Polyethylene Glycol 3350 17 Gm Powd.Pack) 17 gm PO DAILY PRN PRN Reason: Constipation Sennosides (Sennosides 8.6 Mg Tablet) 8.6 mg PO BID PRN PRN Reason: Constipation Discontinued Medications Sodium Chloride (Normal Saline 0.9%) 1,000 mls @ 1,000 mls/hr IV BOLUS ONE Stop: 06/20/22 12:10 Last Infusion: 06/20/22 12:40 Dose: 0 mls/hr Documented By: Admin: 06/20/22 11:26 Dose: 1,000 mls/hr Documented By: KAEL Sodium Chloride (Normal Saline 0.9%) 1,000 mls @ 1,000 mls/hr IV BOLUS ONE Stop: 06/20/22 14:28 Last Infusion: 06/20/22 16:07 Dose: 0 mls/hr Documented By: Admin: 06/20/22 14:04 Dose: 1,000 mls/hr Documented By: KAEL Piperacillin Sod/Tazobactam (Sod 4.5 gm/ Sodium Chloride) 100 mls @ 200 mls/hr IV NOW ONE Stop: 06/20/22 13:30 Last Infusion: 06/20/22 14:48 Dose: 0 mls/hr Documented By: Admin: 06/20/22 14:04 Dose: 200 mls/hr Documented By: KAEL Labetalol HCl (Labetalol 20 Mg/4 Ml Syringe) 20 mg IV NOW ONE Stop: 06/20/22 11:16 Last Admin: 06/20/22 11:26 Dose: 20 mg Documented By: KAEL Labetalol HCl (Labetalol 20 Mg/4 Ml Syringe) 20 mg IV NOW ONE Stop: 06/20/22 13:30 Last Admin: 06/20/22 14:03 Dose: 20 mg Documented By: KAEL Metoclopramide HCl (Metoclopramide 10 Mg/2 Ml Inj) 10 mg IV NOW ONE Stop: 06/20/22 12:57 Last Admin: 06/20/22 13:04 Dose: 10 mg Documented By: MARCELLUS Vital Signs Vital signs: Vital Signs - 8 hr 06/20/22 10:56 06/20/22 11:26 06/20/22 11:49 Temperature 97.7 F Pulse Rate 104 H 98 H 67 Respiratory Rate 22 20 Blood Pressure 197/99 H 200/89 H 168/79 H Pulse Oximetry 100 102 H Oxygen Delivery Method Room Air Room Air 06/20/22 12:27 06/20/22 10:41 06/20/22 10:43 Temperature Pulse Rate 96 H 106 H Respiratory Rate 22 Blood Pressure 175/85 H 197/99 H Pulse Oximetry 97 Oxygen Delivery Method 06/20/22 10:43 06/20/22 11:00 06/20/22 11:00 Temperature Pulse Rate 104 H 88 Respiratory Rate 21 20 Blood Pressure 200/89 H Pulse Oximetry 100 Oxygen Delivery Method 06/20/22 11:30 06/20/22 11:30 06/20/22 11:39 Temperature Pulse Rate 101 H 94 H Respiratory Rate 18 18 Blood Pressure 197/101 H Pulse Oximetry 99 100 Oxygen Delivery Method 06/20/22 11:39 06/20/22 11:40 06/20/22 11:40 Temperature Pulse Rate 91 H Respiratory Rate 11 L Blood Pressure 198/97 H 195/92 H Pulse Oximetry 100 Oxygen Delivery Method 06/20/22 11:43 06/20/22 11:43 06/20/22 12:00 Temperature Pulse Rate 92 H Respiratory Rate 10 L Blood Pressure 168/79 H 175/85 H Pulse Oximetry 100 Oxygen Delivery Method 06/20/22 12:00 06/20/22 12:30 06/20/22 12:31 Temperature Pulse Rate 90 93 H Respiratory Rate 9 L 30 H Blood Pressure 207/92 H Pulse Oximetry 97 Oxygen Delivery Method 06/20/22 12:31 06/20/22 13:30 06/20/22 14:03 Temperature Pulse Rate 94 H 97 H 94 H Respiratory Rate 29 H 17 Blood Pressure 171/76 H 174/80 H Pulse Oximetry 96 Oxygen Delivery Method Room Air 06/20/22 13:00 06/20/22 13:01 06/20/22 13:01 Temperature Pulse Rate 94 H 95 H Respiratory Rate 22 25 H Blood Pressure 171/76 H Pulse Oximetry 100 100 Oxygen Delivery Method 06/20/22 13:30 06/20/22 13:31 06/20/22 13:31 Temperature Pulse Rate 98 H 97 H Respiratory Rate 19 19 Blood Pressure 191/93 H Pulse Oximetry Oxygen Delivery Method 06/20/22 13:53 06/20/22 13:53 06/20/22 14:00 Temperature Pulse Rate 98 H Respiratory Rate 12 Blood Pressure 176/89 H 174/80 H Pulse Oximetry 100 Oxygen Delivery Method 06/20/22 14:00 06/20/22 14:13 06/20/22 14:13 Temperature Pulse Rate 101 H 100 H Respiratory Rate 0 L 15 Blood Pressure 164/81 H Pulse Oximetry 98 98 Oxygen Delivery Method 06/20/22 14:17 06/20/22 14:17 06/20/22 14:30 Temperature Pulse Rate 97 H Respiratory Rate 21 Blood Pressure 169/92 H 176/85 H Pulse Oximetry 98 Oxygen Delivery Method 06/20/22 14:30 06/20/22 15:00 06/20/22 15:00 Temperature Pulse Rate 93 H 90 Respiratory Rate 24 16 Blood Pressure 183/85 H Pulse Oximetry 98 96 Oxygen Delivery Method 06/20/22 15:29 06/20/22 15:30 06/20/22 15:32 Temperature Pulse Rate 97 H 98 H Respiratory Rate 17 Blood Pressure 179/82 H 179/82 H Pulse Oximetry 93 Oxygen Delivery Method MDM - Nausea/Vomiting/Diarrhea Lab Data Result diagrams: 06/20/22 10:45 06/20/22 10:45 Labs: Lab Results 06/20/22 06/20/22 06/20/22 Range/Units 10:45 10:45 10:45 WBC 16.6 H (4.5-11.0) X10^3/uL RBC 5.51 (4.5-5.9) X10^6/uL Hgb 15.9 (13.5-17.5) g/dL Hct 48.1 (41-53) % MCV 87.2 (80-100) fL MCH 28.8 (26-34) PG MCHC 33.1 (30-36) % RDW 13.3 (11.6-14.8) % Plt Count 268 (150-400) X10^3/uL Neut % (Auto) 92.9 H (50-75) % Lymph % (Auto) 5.0 L (25-40) % [place] % (Auto) 1.6 L (3-14) % Eos % (Auto) 0.0 L (2-4) % Baso % (Auto) 0.5 (0-2) % Neut # (Auto) 35707 H (3040-2640) /uL Lymph # (Auto) 800 L (6690-5899) /uL [place] # (Auto) 300 (0-900) /uL Eos # (Auto) 0 (0-450) /uL Baso # (Auto) 100 (0-100) /uL ABG pH (7.35-7.45) ABG pCO2 (35-45) mmHg ABG pO2 (80-100) mmHg ABG HCO3 (22-26) mmol/L ABG Total CO2 (21-31) mmol/L ABG O2 Saturation (95-100) % ABG Base Excess (-2-2) mmol/L FiO2 Sodium 135 L (137-145) mmol/L Potassium 4.9 (3.4-5.1) mmol/L Chloride 99 (98-107) mmol/L Carbon Dioxide 19 L (22-32) mmol/L BUN 21 H (9-20) mg/dL Creatinine 0.89 (0.66-1.25) mg/dL Estimated GFR > 60 (>60) mL/min BUN/Creatinine Ratio 23.6 H (6-22) Glucose 370 H (80-110) mg/dL Lactate (0.7-2.1) mmol/L Calcium 9.3 (8.4-10.2) mg/dL Magnesium 1.5 L (1.6-2.3) mg/dL Total Bilirubin 1.2 (0.2-1.3) mg/dL AST 36 (17-59) IU/L ALT 28 (<50) IU/L Alkaline Phosphatase 89 (38-126) U/L Troponin I < 0.012 (0.01-0.034) ng/mL NT-Pro-B Natriuret Pep 52 (<125) pg/mL Total Protein 8.2 (6.3-8.2) g/dL Albumin 4.4 (3.5-5.0) g/dL Globulin 3.8 (1.7-4.1) g/dL Albumin/Globulin Ratio 1.2 (1.0-2.8) Lipase 220 (23-300) U/L Procalcitonin 0.07 (<0.5) ng/mL Urine Color Urine Appearance Urine pH (4.5-8.0) Ur Specific [place] (1.000-1.035) Urine Protein (Negative) Urine Glucose (UA) (Negative) g/dL Urine Ketones (NEGATIVE) Urine Occult Blood (Negative) Urine Nitrate (Negative) Urine Bilirubin (NEGATIVE) Urine Urobilinogen (0.2) E.U./dL Ur Leukocyte Esterase (NEGATIVE) Urine RBC (0-5/HPF) Urine WBC (0-5/HPF) Ur Squamous Epith Cells (0-5/HPF) Amorphous Sediment Urine Bacteria (None) Ur Culture Indicated? Stl C. cayetanensis PCR Stool Rotavirus (PCR) Stool Adenovirus (PCR) Stool Astrovirus (PCR) Stool Cryptosporidium PCR Stl E.coli Shiga Tox PCR St Sh/Enteroin Ecoli PCR Stool E coli O157 PCR Stl Enterotoxigenic E PCR Stool EPEC (PCR) Stl E. histolytica PCR Stool Giardia Lamblia PCR Stool Sapovirus (PCR) Stl P. shigelloides PCR St Y.enterocolitica PCR Stool Vibrio (PCR) Stl Vibrio cholerae PCR Stl Enteroaggr Ecoli PCR Stl Norovirus GI/GII PCR Ketones 3.66 H (<0.27) mmol/L Chlamy pneumoniae PCR (Not Detect) Adenovirus (PCR) (Not Detect) B. pertussis DNA (PCR) (Not Detecte) B.parapertussis DNA PCR (Not Detecte) Campylobacter (PCR) C. difficile Tox (PCR) Coronavirus OC43 (PCR) (Not Detect) Coronavirus HKU1 (PCR) (Not Detect) Coronavirus 229E (PCR) (Not Detect) SARS-CoV-2 (PCR) (Not Detecte) Coronavirus NL63 (PCR) (Not Detect) Human Metapneumovir PCR (Not Detect) Influenza Type A (PCR) (Not Detect) Influenza Type B (PCR) (Not Detect) M. pneumoniae (PCR) (Not Detect) Parainfluenza 1 (PCR) (Not Detect) Parainfluenza 2 (PCR) (Not Detect) Parainfluenza 3 (PCR) (Not Detect) Parainfluenza 4 (PCR) (Not Detect) RSV (PCR) (Not Detect) Entero/Rhino (PCR) (Not Detect) Salmonella (PCR) 06/20/22 06/20/22 06/20/22 Range/Units 10:45 11:44 12:15 WBC (4.5-11.0) X10^3/uL RBC (4.5-5.9) X10^6/uL Hgb (13.5-17.5) g/dL Hct (41-53) % MCV (80-100) fL MCH (26-34) PG MCHC (30-36) % RDW (11.6-14.8) % Plt Count (150-400) X10^3/uL Neut % (Auto) (50-75) % Lymph % (Auto) (25-40) % [place] % (Auto) (3-14) % Eos % (Auto) (2-4) % Baso % (Auto) (0-2) % Neut # (Auto) (9742-1156) /uL Lymph # (Auto) (5397-0192) /uL [place] # (Auto) (0-900) /uL Eos # (Auto) (0-450) /uL Baso # (Auto) (0-100) /uL ABG pH 7.47 H (7.35-7.45) ABG pCO2 23.9 L* (35-45) mmHg ABG pO2 128 H (80-100) mmHg ABG HCO3 18 L (22-26) mmol/L ABG Total CO2 18 L (21-31) mmol/L ABG O2 Saturation 99 (95-100) % ABG Base Excess -6.0 L (-2-2) mmol/L FiO2 20 Sodium (137-145) mmol/L Potassium (3.4-5.1) mmol/L Chloride (98-107) mmol/L Carbon Dioxide (22-32) mmol/L BUN (9-20) mg/dL Creatinine (0.66-1.25) mg/dL Estimated GFR (>60) mL/min BUN/Creatinine Ratio (6-22) Glucose (80-110) mg/dL Lactate 4.4 H* (0.7-2.1) mmol/L Calcium (8.4-10.2) mg/dL Magnesium (1.6-2.3) mg/dL Total Bilirubin (0.2-1.3) mg/dL AST (17-59) IU/L ALT (<50) IU/L Alkaline Phosphatase (38-126) U/L Troponin I (0.01-0.034) ng/mL NT-Pro-B Natriuret Pep (<125) pg/mL Total Protein (6.3-8.2) g/dL Albumin (3.5-5.0) g/dL Globulin (1.7-4.1) g/dL Albumin/Globulin Ratio (1.0-2.8) Lipase (23-300) U/L Procalcitonin (<0.5) ng/mL Urine Color Yellow Urine Appearance Slightly cloudy Urine pH 5.0 (4.5-8.0) Ur Specific [place] 1.015 (1.000-1.035) Urine Protein 3+ H (Negative) Urine Glucose (UA) 2+ H (Negative) g/dL Urine Ketones 2+ H (NEGATIVE) Urine Occult Blood 1+ H (Negative) Urine Nitrate Negative (Negative) Urine Bilirubin Negative (NEGATIVE) Urine Urobilinogen 0.2 (0.2) E.U./dL Ur Leukocyte Esterase Negative (NEGATIVE) Urine RBC 1-5/hpf (0-5/HPF) Urine WBC 0-1/hpf (0-5/HPF) Ur Squamous Epith Cells 0-1 /hpf (0-5/HPF) Amorphous Sediment 1+ Urine Bacteria None seen (None) Ur Culture Indicated? Cult not indicated Stl C. cayetanensis PCR Stool Rotavirus (PCR) Stool Adenovirus (PCR) Stool Astrovirus (PCR) Stool Cryptosporidium PCR Stl E.coli Shiga Tox PCR St Sh/Enteroin Ecoli PCR Stool E coli O157 PCR Stl Enterotoxigenic E PCR Stool EPEC (PCR) Stl E. histolytica PCR Stool Giardia Lamblia PCR Stool Sapovirus (PCR) Stl P. shigelloides PCR St Y.enterocolitica PCR Stool Vibrio (PCR) Stl Vibrio cholerae PCR Stl Enteroaggr Ecoli PCR Stl Norovirus GI/GII PCR Ketones (<0.27) mmol/L Chlamy pneumoniae PCR (Not Detect) Adenovirus (PCR) (Not Detect) B. pertussis DNA (PCR) (Not Detecte) B.parapertussis DNA PCR (Not Detecte) Campylobacter (PCR) C. difficile Tox (PCR) Coronavirus OC43 (PCR) (Not Detect) Coronavirus HKU1 (PCR) (Not Detect) Coronavirus 229E (PCR) (Not Detect) SARS-CoV-2 (PCR) (Not Detecte) Coronavirus NL63 (PCR) (Not Detect) Human Metapneumovir PCR (Not Detect) Influenza Type A (PCR) (Not Detect) Influenza Type B (PCR) (Not Detect) M. pneumoniae (PCR) (Not Detect) Parainfluenza 1 (PCR) (Not Detect) Parainfluenza 2 (PCR) (Not Detect) Parainfluenza 3 (PCR) (Not Detect) Parainfluenza 4 (PCR) (Not Detect) RSV (PCR) (Not Detect) Entero/Rhino (PCR) (Not Detect) Salmonella (PCR) 06/20/22 06/20/22 06/20/22 Range/Units 12:43 12:50 14:28 WBC (4.5-11.0) X10^3/uL RBC (4.5-5.9) X10^6/uL Hgb (13.5-17.5) g/dL Hct (41-53) % MCV (80-100) fL MCH (26-34) PG MCHC (30-36) % RDW (11.6-14.8) % Plt Count (150-400) X10^3/uL Neut % (Auto) (50-75) % Lymph % (Auto) (25-40) % [place] % (Auto) (3-14) % Eos % (Auto) (2-4) % Baso % (Auto) (0-2) % Neut # (Auto) (9350-7390) /uL Lymph # (Auto) (9051-0607) /uL [place] # (Auto) (0-900) /uL Eos # (Auto) (0-450) /uL Baso # (Auto) (0-100) /uL ABG pH (7.35-7.45) ABG pCO2 (35-45) mmHg ABG pO2 (80-100) mmHg ABG HCO3 (22-26) mmol/L ABG Total CO2 (21-31) mmol/L ABG O2 Saturation (95-100) % ABG Base Excess (-2-2) mmol/L FiO2 Sodium (137-145) mmol/L Potassium (3.4-5.1) mmol/L Chloride (98-107) mmol/L Carbon Dioxide (22-32) mmol/L BUN (9-20) mg/dL Creatinine (0.66-1.25) mg/dL Estimated GFR (>60) mL/min BUN/Creatinine Ratio (6-22) Glucose (80-110) mg/dL Lactate 3.7 H (0.7-2.1) mmol/L Calcium (8.4-10.2) mg/dL Magnesium (1.6-2.3) mg/dL Total Bilirubin (0.2-1.3) mg/dL AST (17-59) IU/L ALT (<50) IU/L Alkaline Phosphatase (38-126) U/L Troponin I (0.01-0.034) ng/mL NT-Pro-B Natriuret Pep (<125) pg/mL Total Protein (6.3-8.2) g/dL Albumin (3.5-5.0) g/dL Globulin (1.7-4.1) g/dL Albumin/Globulin Ratio (1.0-2.8) Lipase (23-300) U/L Procalcitonin (<0.5) ng/mL Urine Color Urine Appearance Urine pH (4.5-8.0) Ur Specific [place] (1.000-1.035) Urine Protein (Negative) Urine Glucose (UA) (Negative) g/dL Urine Ketones (NEGATIVE) Urine Occult Blood (Negative) Urine Nitrate (Negative) Urine Bilirubin (NEGATIVE) Urine Urobilinogen (0.2) E.U./dL Ur Leukocyte Esterase (NEGATIVE) Urine RBC (0-5/HPF) Urine WBC (0-5/HPF) Ur Squamous Epith Cells (0-5/HPF) Amorphous Sediment Urine Bacteria (None) Ur Culture Indicated? Stl C. cayetanensis PCR Cancelled Stool Rotavirus (PCR) Cancelled Stool Adenovirus (PCR) Cancelled Stool Astrovirus (PCR) Cancelled Stool Cryptosporidium PCR Cancelled Stl E.coli Shiga Tox PCR Cancelled St Sh/Enteroin Ecoli PCR Cancelled Stool E coli O157 PCR Cancelled Stl Enterotoxigenic E PCR Cancelled Stool EPEC (PCR) Cancelled Stl E. histolytica PCR Cancelled Stool Giardia Lamblia PCR Cancelled Stool Sapovirus (PCR) Cancelled Stl P. shigelloides PCR Cancelled St Y.enterocolitica PCR Cancelled Stool Vibrio (PCR) Cancelled Stl Vibrio cholerae PCR Cancelled Stl Enteroaggr Ecoli PCR Cancelled Stl Norovirus GI/GII PCR Cancelled Ketones (<0.27) mmol/L Chlamy pneumoniae PCR Not detected (Not Detect) Adenovirus (PCR) Not detected (Not Detect) B. pertussis DNA (PCR) Not detected (Not Detecte) B.parapertussis DNA PCR Not detected (Not Detecte) Campylobacter (PCR) Cancelled C. difficile Tox (PCR) Cancelled Coronavirus OC43 (PCR) Not detected (Not Detect) Coronavirus HKU1 (PCR) Not detected (Not Detect) Coronavirus 229E (PCR) Not detected (Not Detect) SARS-CoV-2 (PCR) Not detected (Not Detecte) Coronavirus NL63 (PCR) Not detected (Not Detect) Human Metapneumovir PCR Not detected (Not Detect) Influenza Type A (PCR) Not detected (Not Detect) Influenza Type B (PCR) Not detected (Not Detect) M. pneumoniae (PCR) Not detected (Not Detect) Parainfluenza 1 (PCR) Not detected (Not Detect) Parainfluenza 2 (PCR) Not detected (Not Detect) Parainfluenza 3 (PCR) Not detected (Not Detect) Parainfluenza 4 (PCR) Not detected (Not Detect) RSV (PCR) Not detected (Not Detect) Entero/Rhino (PCR) Not detected (Not Detect) Salmonella (PCR) Cancelled Point of Care Testing Glucose POC 347 Discharge Plan Departure Patient Disposition: Admitted As Inpatient Clinical Impression: DKA (diabetic ketoacidosis), Abdominal pain, vomiting, and diarrhea Bedbug bite Qualifiers: Encounter type: initial encounter Qualified Code(s): W57.XXXA - Bitten or stung by nonvenomous insect and other nonvenomous arthropods, initial encounter
--- NOTE | 2022-06-20 16:49 | P.HP_ITS ---
History of Present Illness History of Present Illness Date Patient Seen: 06/20/22 Time Patient Seen: 19:08 Chief complaint: nausea, vomting, diarrhea Narrative: Herve Driver is a 61yo M with PMH of DM1, HTN, HLD, and previous CVA who presents with NVD and found to be in DKA. Patient's intial glucose of 370 with gap of 17 and positive beta-hydroxybutarate ketones. Patient states he developed flu-like symptoms 3 days ago with body aches, NV and diarrhea. He was unable to take in his home insulin due to this. He normally takes 40 units of levemir BID and 12 units with meals. His mom recently at age 91 so he has been unable to see his doctors lately as he was caring for her. He has 90% HARRIS on the left and is on eliquis. Takes lisinopril for his HTN. On arrival to ED he had hyperglycemia and positive ketones so was started on insulin drip. Patient also reports a LE rash on both ankles which he thinks is due to bed bugs. Says it sometimes itches and drains. Patient History Medical History Hyperlipidemia Hypertension Stroke Type 1 diabetes Family & Social History Safety & Behavioral: Feels Safe in Current Yes Environment Been Physically Hurt or No Threatened By a Person Tobacco & Substance use: Smoking Status Former smoker alcohol intake frequency 0-2 drinks per day Substance Use Type does not use Meds Home Medications and Allergies Home Medications Medication Instructions Recorded Confirmed Type apixaban 5 mg tablet (Eliquis) 5 mg PO BID 06/20/22 06/20/22 History atorvastatin 80 mg tablet 80 mg PO DAILY 06/20/22 06/20/22 History insulin detemir U-100 100 unit/mL 40 unit SUBCUT BID 06/20/22 06/20/22 History subcutaneous solution (Levemir U-100 Insulin) lisinopril 10 mg tablet 10 mg PO DAILY 06/20/22 06/20/22 History pantoprazole 40 mg tablet,delayed 40 mg PO DAILY 06/20/22 06/20/22 History release Allergies Allergy/AdvReac Type Severity Reaction Status Date / Time fentanyl AdvReac Verified 02/08/22 11:13 hydrocodone AdvReac Verified 02/08/22 11:13 Review of Systems Review of Systems Narrative: All other systems reviewed with the patient and are negative unless otherwise st ated. Exam Vital Signs (past 8 hours): - 06/20/22 10:56 06/20/22 11:26 06/20/22 11:49 Temperature 97.7 F Pulse Rate 104 H 98 H 67 Respiratory Rate 22 20 Blood Pressure 197/99 H 200/89 H 168/79 H Pulse Oximetry 100 102 H Oxygen Delivery Method Room Air Room Air 06/20/22 12:27 06/20/22 10:41 06/20/22 10:43 Temperature Pulse Rate 96 H 106 H Respiratory Rate 22 Blood Pressure 175/85 H 197/99 H Pulse Oximetry 97 Oxygen Delivery Method 06/20/22 10:43 06/20/22 11:00 06/20/22 11:00 Temperature Pulse Rate 104 H 88 Respiratory Rate 21 20 Blood Pressure 200/89 H Pulse Oximetry 100 Oxygen Delivery Method 06/20/22 11:30 06/20/22 11:30 06/20/22 11:39 Temperature Pulse Rate 101 H 94 H Respiratory Rate 18 18 Blood Pressure 197/101 H Pulse Oximetry 99 100 Oxygen Delivery Method 06/20/22 11:39 06/20/22 11:40 06/20/22 11:40 Temperature Pulse Rate 91 H Respiratory Rate 11 L Blood Pressure 198/97 H 195/92 H Pulse Oximetry 100 Oxygen Delivery Method 06/20/22 11:43 06/20/22 11:43 06/20/22 12:00 Temperature Pulse Rate 92 H Respiratory Rate 10 L Blood Pressure 168/79 H 175/85 H Pulse Oximetry 100 Oxygen Delivery Method 06/20/22 12:00 06/20/22 12:30 06/20/22 12:31 Temperature Pulse Rate 90 93 H Respiratory Rate 9 L 30 H Blood Pressure 207/92 H Pulse Oximetry 97 Oxygen Delivery Method 06/20/22 12:31 06/20/22 13:30 06/20/22 14:03 Temperature Pulse Rate 94 H 97 H 94 H Respiratory Rate 29 H 17 Blood Pressure 171/76 H 174/80 H Pulse Oximetry 96 Oxygen Delivery Method Room Air 06/20/22 13:00 06/20/22 13:01 06/20/22 13:01 Temperature Pulse Rate 94 H 95 H Respiratory Rate 22 25 H Blood Pressure 171/76 H Pulse Oximetry 100 100 Oxygen Delivery Method 06/20/22 13:30 06/20/22 13:31 06/20/22 13:31 Temperature Pulse Rate 98 H 97 H Respiratory Rate 19 19 Blood Pressure 191/93 H Pulse Oximetry Oxygen Delivery Method 06/20/22 13:53 06/20/22 13:53 06/20/22 14:00 Temperature Pulse Rate 98 H Respiratory Rate 12 Blood Pressure 176/89 H 174/80 H Pulse Oximetry 100 Oxygen Delivery Method 06/20/22 14:00 06/20/22 14:13 06/20/22 14:13 Temperature Pulse Rate 101 H 100 H Respiratory Rate 0 L 15 Blood Pressure 164/81 H Pulse Oximetry 98 98 Oxygen Delivery Method 06/20/22 14:17 06/20/22 14:17 06/20/22 14:30 Temperature Pulse Rate 97 H Respiratory Rate 21 Blood Pressure 169/92 H 176/85 H Pulse Oximetry 98 Oxygen Delivery Method 06/20/22 14:30 06/20/22 15:00 06/20/22 15:00 Temperature Pulse Rate 93 H 90 Respiratory Rate 24 16 Blood Pressure 183/85 H Pulse Oximetry 98 96 Oxygen Delivery Method 06/20/22 15:29 06/20/22 15:30 06/20/22 15:32 Temperature Pulse Rate 97 H 98 H Respiratory Rate 17 Blood Pressure 179/82 H 179/82 H Pulse Oximetry 93 Oxygen Delivery Method Oxygen Delivery Method Room Air Narrative Exam Narrative: GEN: no acute distress HEENT: moist mucous membranes, PERRL NECK: trachea midline, no JVD CV: regular rate and rhythm, no murmurs PULM: clear bilaterally ABD: soft, nontender, nondistended, no organomegaly EXT: warm and well perfused with no edema, rash on bilateral ankles with crusty scab on the right anterior ankle NEURO: awake, alert, oriented, no focal deficits Objective Labs Result Diagrams: 06/20/22 10:45 06/20/22 17:19 Labs: Laboratory Results - last 24 hr 06/20/22 06/20/22 06/20/22 10:45 10:45 10:45 WBC 16.6 H RBC 5.51 Hgb 15.9 Hct 48.1 MCV 87.2 MCH 28.8 MCHC 33.1 RDW 13.3 Plt Count 268 Neut % (Auto) 92.9 H Lymph % (Auto) 5.0 L [place] % (Auto) 1.6 L Eos % (Auto) 0.0 L Baso % (Auto) 0.5 Neut # (Auto) 33310 H Lymph # (Auto) 800 L [place] # (Auto) 300 Eos # (Auto) 0 Baso # (Auto) 100 ABG pH ABG pCO2 ABG pO2 ABG HCO3 ABG Total CO2 ABG O2 Saturation ABG Base Excess FiO2 Sodium 135 L Potassium 4.9 Chloride 99 Carbon Dioxide 19 L BUN 21 H Creatinine 0.89 Estimated GFR > 60 BUN/Creatinine Ratio 23.6 H Glucose 370 H Lactate Calcium 9.3 Magnesium 1.5 L Total Bilirubin 1.2 AST 36 ALT 28 Alkaline Phosphatase 89 Troponin I < 0.012 NT-Pro-B Natriuret Pep 52 Total Protein 8.2 Albumin 4.4 Globulin 3.8 Albumin/Globulin Ratio 1.2 Lipase 220 Procalcitonin 0.07 Urine Color Urine Appearance Urine pH Ur Specific [place] Urine Protein Urine Glucose (UA) Urine Ketones Urine Occult Blood Urine Nitrate Urine Bilirubin Urine Urobilinogen Ur Leukocyte Esterase Urine RBC Urine WBC Ur Squamous Epith Cells Amorphous Sediment Urine Bacteria Ur Culture Indicated? Stl C. cayetanensis PCR Stool Rotavirus (PCR) Stool Adenovirus (PCR) Stool Astrovirus (PCR) Stool Cryptosporidium PCR Stl E.coli Shiga Tox PCR St Sh/Enteroin Ecoli PCR Stool E coli O157 PCR Stl Enterotoxigenic E PCR Stool EPEC (PCR) Stl E. histolytica PCR Stool Giardia Lamblia PCR Stool Sapovirus (PCR) Stl P. shigelloides PCR St Y.enterocolitica PCR Stool Vibrio (PCR) Stl Vibrio cholerae PCR Stl Enteroaggr Ecoli PCR Stl Norovirus GI/GII PCR Ketones 3.66 H Chlamy pneumoniae PCR Adenovirus (PCR) B. pertussis DNA (PCR) B.parapertussis DNA PCR Campylobacter (PCR) C. difficile Tox (PCR) Coronavirus OC43 (PCR) Coronavirus HKU1 (PCR) Coronavirus 229E (PCR) SARS-CoV-2 (PCR) Coronavirus NL63 (PCR) Human Metapneumovir PCR Influenza Type A (PCR) Influenza Type B (PCR) M. pneumoniae (PCR) Parainfluenza 1 (PCR) Parainfluenza 2 (PCR) Parainfluenza 3 (PCR) Parainfluenza 4 (PCR) RSV (PCR) Entero/Rhino (PCR) Salmonella (PCR) 06/20/22 06/20/22 06/20/22 10:45 11:44 12:15 WBC RBC Hgb Hct MCV MCH MCHC RDW Plt Count Neut % (Auto) Lymph % (Auto) [place] % (Auto) Eos % (Auto) Baso % (Auto) Neut # (Auto) Lymph # (Auto) [place] # (Auto) Eos # (Auto) Baso # (Auto) ABG pH 7.47 H ABG pCO2 23.9 L* ABG pO2 128 H ABG HCO3 18 L ABG Total CO2 18 L ABG O2 Saturation 99 ABG Base Excess -6.0 L FiO2 20 Sodium Potassium Chloride Carbon Dioxide BUN Creatinine Estimated GFR BUN/Creatinine Ratio Glucose Lactate 4.4 H* Calcium Magnesium Total Bilirubin AST ALT Alkaline Phosphatase Troponin I NT-Pro-B Natriuret Pep Total Protein Albumin Globulin Albumin/Globulin Ratio Lipase Procalcitonin Urine Color Yellow Urine Appearance Slightly cloudy Urine pH 5.0 Ur Specific [place] 1.015 Urine Protein 3+ H Urine Glucose (UA) 2+ H Urine Ketones 2+ H Urine Occult Blood 1+ H Urine Nitrate Negative Urine Bilirubin Negative Urine Urobilinogen 0.2 Ur Leukocyte Esterase Negative Urine RBC 1-5/hpf Urine WBC 0-1/hpf Ur Squamous Epith Cells 0-1 /hpf Amorphous Sediment 1+ Urine Bacteria None seen Ur Culture Indicated? Cult not indicated Stl C. cayetanensis PCR Stool Rotavirus (PCR) Stool Adenovirus (PCR) Stool Astrovirus (PCR) Stool Cryptosporidium PCR Stl E.coli Shiga Tox PCR St Sh/Enteroin Ecoli PCR Stool E coli O157 PCR Stl Enterotoxigenic E PCR Stool EPEC (PCR) Stl E. histolytica PCR Stool Giardia Lamblia PCR Stool Sapovirus (PCR) Stl P. shigelloides PCR St Y.enterocolitica PCR Stool Vibrio (PCR) Stl Vibrio cholerae PCR Stl Enteroaggr Ecoli PCR Stl Norovirus GI/GII PCR Ketones Chlamy pneumoniae PCR Adenovirus (PCR) B. pertussis DNA (PCR) B.parapertussis DNA PCR Campylobacter (PCR) C. difficile Tox (PCR) Coronavirus OC43 (PCR) Coronavirus HKU1 (PCR) Coronavirus 229E (PCR) SARS-CoV-2 (PCR) Coronavirus NL63 (PCR) Human Metapneumovir PCR Influenza Type A (PCR) Influenza Type B (PCR) M. pneumoniae (PCR) Parainfluenza 1 (PCR) Parainfluenza 2 (PCR) Parainfluenza 3 (PCR) Parainfluenza 4 (PCR) RSV (PCR) Entero/Rhino (PCR) Salmonella (PCR) 06/20/22 06/20/22 06/20/22 12:43 12:50 14:28 WBC RBC Hgb Hct MCV MCH MCHC RDW Plt Count Neut % (Auto) Lymph % (Auto) [place] % (Auto) Eos % (Auto) Baso % (Auto) Neut # (Auto) Lymph # (Auto) [place] # (Auto) Eos # (Auto) Baso # (Auto) ABG pH ABG pCO2 ABG pO2 ABG HCO3 ABG Total CO2 ABG O2 Saturation ABG Base Excess FiO2 Sodium Potassium Chloride Carbon Dioxide BUN Creatinine Estimated GFR BUN/Creatinine Ratio Glucose Lactate 3.7 H Calcium Magnesium Total Bilirubin AST ALT Alkaline Phosphatase Troponin I NT-Pro-B Natriuret Pep Total Protein Albumin Globulin Albumin/Globulin Ratio Lipase Procalcitonin Urine Color Urine Appearance Urine pH Ur Specific [place] Urine Protein Urine Glucose (UA) Urine Ketones Urine Occult Blood Urine Nitrate Urine Bilirubin Urine Urobilinogen Ur Leukocyte Esterase Urine RBC Urine WBC Ur Squamous Epith Cells Amorphous Sediment Urine Bacteria Ur Culture Indicated? Stl C. cayetanensis PCR Cancelled Stool Rotavirus (PCR) Cancelled Stool Adenovirus (PCR) Cancelled Stool Astrovirus (PCR) Cancelled Stool Cryptosporidium PCR Cancelled Stl E.coli Shiga Tox PCR Cancelled St Sh/Enteroin Ecoli PCR Cancelled Stool E coli O157 PCR Cancelled Stl Enterotoxigenic E PCR Cancelled Stool EPEC (PCR) Cancelled Stl E. histolytica PCR Cancelled Stool Giardia Lamblia PCR Cancelled Stool Sapovirus (PCR) Cancelled Stl P. shigelloides PCR Cancelled St Y.enterocolitica PCR Cancelled Stool Vibrio (PCR) Cancelled Stl Vibrio cholerae PCR Cancelled Stl Enteroaggr Ecoli PCR Cancelled Stl Norovirus GI/GII PCR Cancelled Ketones Chlamy pneumoniae PCR Not detected Adenovirus (PCR) Not detected B. pertussis DNA (PCR) Not detected B.parapertussis DNA PCR Not detected Campylobacter (PCR) Cancelled C. difficile Tox (PCR) Cancelled Coronavirus OC43 (PCR) Not detected Coronavirus HKU1 (PCR) Not detected Coronavirus 229E (PCR) Not detected SARS-CoV-2 (PCR) Not detected Coronavirus NL63 (PCR) Not detected Human Metapneumovir PCR Not detected Influenza Type A (PCR) Not detected Influenza Type B (PCR) Not detected M. pneumoniae (PCR) Not detected Parainfluenza 1 (PCR) Not detected Parainfluenza 2 (PCR) Not detected Parainfluenza 3 (PCR) Not detected Parainfluenza 4 (PCR) Not detected RSV (PCR) Not detected Entero/Rhino (PCR) Not detected Salmonella (PCR) Cancelled Assessment & Plan Assessment & Plan narrative: # acute diabetic ketoacidosis -initial glucose 370, gap 17 and positive serum ketones (beta hydroxybutyrate) at 3.66 -continue insulin drip initiated in ED -give 20 mEq potassium IV based on DKA protocol -BMP q6h -check A1c -diabetes education consult -resp PCR normal # acute lactic acidosis -4.4 on admission, currently 3.7 -likely DKA related -s/p 2L NS boluses in ED -trend lactate -continue IV fluids # hypomagnesemia -1.5 on admission -give 4g IV mag -daily mag checks # acute leukocytosis -WBC 16.6 on admission, no obvious source of infection other than diarrhea, chest x-ray normal, UA normal -blood cultures pending -start Zosyn and will d/c if blood cultures negative at 48 hours -f/u stool PCR # acute nausea vomiting and diarrhea -nausea and vomiting likely secondary to DKA, CT abdomen and pelvis unremarkable other than mild AAA -check stool PCR for viral/bacterial gastroenteritis -Zosyn as above -Zofran PRN # mild abdominal aortic aneurysm -seen incidentally on CT abdomen and measuring 3.7 cm -outpatient follow-up with ultrasound in 2 years # chronic HARRIS -continue home eliquis and lipitor -obtain carotid US # acute lower extremity bug bites with distal LE rash -per patient likely secondary to bedbugs -place in contact isolation -hydrocortisone topical PRN # hypertensive urgency -BP as high as 207/92 in ED -continue home lisinopril -labetalol IV PRN for SBP >190 or DBP >110 I spent a total of 35 minutes of critical care time on this patient's care today; this time is exclusive of procedural time. Code status is full code. COVID negative. DVT prophylaxis with heparin subcu. Proxy is friend Destiney. I have reviewed home meds and used all available resources to reconcile the home meds. Time Spent With Patient Critical Care time: I spent a total of [] minutes of critical care time on this patient's care today; this time is exclusive of procedural time.
[2022-06-20 17:52] LABS: BUN Creatinine Ratio 22.4 (6-22); Blood Urea Nitrogen 19 mg/dL (9-20); Calcium 8.7 mg/dL (8.4-10.2); Carbon Dioxide 20 mmol/L (22-32); Chloride 106 mmol/L (98-107); Estimated Glomerular Filt Rate > 60 mL/min (>60); Glucose 255 mg/dL (80-110); Sodium 139 mmol/L (137-145)
[2022-06-20 17:59] LABS: HEMOLYSIS 66 (0-50); Potassium 4.4 mmol/L (3.4-5.1)
[2022-06-20 18:10] LABS: TSH w/ Reflex to FT4 1.24 uIU/mL (0.47-4.68)
[2022-06-20 18:22] LABS: Hemoglobin A1C% w Est Avg Glu 8.8 % (4.0-6.0)
[2022-06-20] MEDS: MAGNESIUM SULFATE 4 GM/100 ML PIGGYBACK IV (18:24)
[2022-06-20 19:00] LABS: Lactate (Lactic Acid) 3.9 mmol/L (0.7-2.1)
[2022-06-20 19:25] LABS: Reflexed Lactate in 2 Hours Y
[2022-06-20] MEDS: ONDANSETRON 4 MG/2 ML INJ IV (19:56)
[2022-06-20] MEDS: ACETAMINOPHEN 325 MG TABLET 650 MG PO (19:57)
[2022-06-20] MEDS: POTASSIUM CHLORIDE IN WATER 10 MEQ/100 ML PIGGYBACK 100 MEQ IV ×2 (20:25→22:15)
--- NOTE | 2022-06-20 20:40 | PM.CN.EICU ---
History of Present Illness Consult details IF CAMERA ACTIVATED, patient seen via real-time interactive audiovisual communication: Camera activated Date Patient Seen: 06/20/22 Chief complaint: nausea, vomting, diarrhea Reason for consult: Hyperglycemia Requesting provider: Dale Luque Consent obtained for tele-yard operator care: Yes Patient Location: ICU Provider location (State): [place] Other participants/roles: RN Narrative: Pateint is a 61 year old male with history of DM, HTN, and prior CVA who presents with flu like symptoms. Associated with N/V and diarrhea. On presentation he was found to be hyperglycemia w/ BS 377, AG 19, lactic acid 4.4, and Co2 19. He was resuscitated with 2 liters of crystalloids and started on insulin/abx. Admitted to ICU for further management. COUNTS INCLUDE 234 BEDS AT THE [facility] Medical History Hyperlipidemia Hypertension Stroke Type 1 diabetes Social History household members: none Smoking Status: Former smoker alcohol intake: current Current Medications Current Medications Medications: Home Medications apixaban 5 mg tablet (Eliquis) 5 mg PO BID 06/20/22 [History Confirmed 06/20/22] atorvastatin 80 mg tablet 80 mg PO DAILY 06/20/22 [History Confirmed 06/20/22] insulin detemir U-100 100 unit/mL subcutaneous solution (Levemir U-100 Insulin) 40 unit SUBCUT BID 06/20/22 [History Confirmed 06/20/22] lisinopril 10 mg tablet 10 mg PO DAILY 06/20/22 [History Confirmed 06/20/22] pantoprazole 40 mg tablet,delayed release 40 mg PO DAILY 06/20/22 [History Confirmed 06/20/22] Visit Medications (administered) Generic Name Dose Route Start Last Admin Trade Name Freq PRN Reason Stop Dose Admin Acetaminophen 650 mg 06/20/22 16:32 06/20/22 19:57 Acetaminophen 325 Mg Tablet PO 650 mg Q4HR PRN Administration Fever/Mild Pain (1-3) INSULIN DRIP PREMIX 100 unit in 100 mls @ 6 mls/hr 06/20/22 13:30 06/20/22 19:03 Myxredlin Drip Premix IV 5 mls/hr TITRATE ISIS 5 mls/hr Titration Protocol Sodium Chloride 1,000 mls @ 150 mls/hr 06/20/22 16:00 06/20/22 16:28 Normal Saline 0.9% IV 150 mls/hr CONT ISIS Administration Ondansetron HCl 4 mg 06/20/22 16:32 06/20/22 19:56 Ondansetron 4 Mg/2 Ml Inj IV 4 mg Q4HR PRN Administration Nausea And Vomiting Exam Vital Signs (past 8 hours): - 06/20/22 13:30 06/20/22 14:03 06/20/22 13:00 Temperature Pulse Rate 97 H 94 H 94 H Respiratory Rate 17 22 Blood Pressure 171/76 H 174/80 H Pulse Oximetry 96 100 Oxygen Delivery Method Room Air Oxygen Flow Rate 06/20/22 13:01 06/20/22 13:01 06/20/22 13:30 Temperature Pulse Rate 95 H 98 H Respiratory Rate 25 H 19 Blood Pressure 171/76 H Pulse Oximetry 100 Oxygen Delivery Method Oxygen Flow Rate 06/20/22 13:31 06/20/22 13:31 06/20/22 13:53 Temperature Pulse Rate 97 H Respiratory Rate 19 Blood Pressure 191/93 H 176/89 H Pulse Oximetry Oxygen Delivery Method Oxygen Flow Rate 06/20/22 13:53 06/20/22 14:00 06/20/22 14:00 Temperature Pulse Rate 98 H 101 H Respiratory Rate 12 0 L Blood Pressure 174/80 H Pulse Oximetry 100 98 Oxygen Delivery Method Oxygen Flow Rate 06/20/22 14:13 06/20/22 14:13 06/20/22 14:17 Temperature Pulse Rate 100 H Respiratory Rate 15 Blood Pressure 164/81 H 169/92 H Pulse Oximetry 98 Oxygen Delivery Method Oxygen Flow Rate 06/20/22 14:17 06/20/22 14:30 06/20/22 14:30 Temperature Pulse Rate 97 H 93 H Respiratory Rate 21 24 Blood Pressure 176/85 H Pulse Oximetry 98 98 Oxygen Delivery Method Oxygen Flow Rate 06/20/22 15:00 06/20/22 15:00 06/20/22 15:29 Temperature Pulse Rate 90 97 H Respiratory Rate 16 17 Blood Pressure 183/85 H Pulse Oximetry 96 93 Oxygen Delivery Method Oxygen Flow Rate 06/20/22 15:30 06/20/22 15:32 06/20/22 15:30 Temperature Pulse Rate 98 H 97 H Respiratory Rate 14 Blood Pressure 179/82 H 179/82 H Pulse Oximetry 96 Oxygen Delivery Method Oxygen Flow Rate 06/20/22 15:48 06/20/22 15:48 06/20/22 16:00 Temperature Pulse Rate 97 H 106 H Respiratory Rate 17 19 Blood Pressure 165/78 H Pulse Oximetry 99 94 Oxygen Delivery Method Oxygen Flow Rate 06/20/22 16:30 06/20/22 17:00 06/20/22 17:30 Temperature Pulse Rate 99 H 97 H 95 H Respiratory Rate 21 24 18 Blood Pressure Pulse Oximetry 96 98 98 Oxygen Delivery Method Oxygen Flow Rate 06/20/22 19:21 06/20/22 19:02 06/20/22 18:00 Temperature 97.9 F Pulse Rate 99 H 90 Respiratory Rate 19 34 H Blood Pressure 145/77 H Pulse Oximetry 99 99 Oxygen Delivery Method Room Air Oxygen Flow Rate 0 Oxygen Delivery Method Room Air Oxygen Flow Rate 0 Narrative Exam Narrative: NAD Objective Labs Result Diagrams: 06/20/22 10:45 06/20/22 17:19 Labs: Laboratory Results - last 24 hr 06/20/22 06/20/22 06/20/22 10:45 10:45 10:45 WBC 16.6 H RBC 5.51 Hgb 15.9 Hct 48.1 MCV 87.2 MCH 28.8 MCHC 33.1 RDW 13.3 Plt Count 268 Neut % (Auto) 92.9 H Lymph % (Auto) 5.0 L [place] % (Auto) 1.6 L Eos % (Auto) 0.0 L Baso % (Auto) 0.5 Neut # (Auto) 25066 H Lymph # (Auto) 800 L [place] # (Auto) 300 Eos # (Auto) 0 Baso # (Auto) 100 ABG pH ABG pCO2 ABG pO2 ABG HCO3 ABG Total CO2 ABG O2 Saturation ABG Base Excess FiO2 Sodium 135 L Potassium 4.9 Chloride 99 Carbon Dioxide 19 L BUN 21 H Creatinine 0.89 Estimated GFR > 60 BUN/Creatinine Ratio 23.6 H Glucose 370 H Hemoglobin A1c Lactate Calcium 9.3 Magnesium 1.5 L Total Bilirubin 1.2 AST 36 ALT 28 Alkaline Phosphatase 89 Troponin I < 0.012 NT-Pro-B Natriuret Pep 52 Total Protein 8.2 Albumin 4.4 Globulin 3.8 Albumin/Globulin Ratio 1.2 Lipase 220 Procalcitonin 0.07 TSH Urine Color Urine Appearance Urine pH Ur Specific [place] Urine Protein Urine Glucose (UA) Urine Ketones Urine Occult Blood Urine Nitrate Urine Bilirubin Urine Urobilinogen Ur Leukocyte Esterase Urine RBC Urine WBC Ur Squamous Epith Cells Amorphous Sediment Urine Bacteria Ur Culture Indicated? Stl C. cayetanensis PCR Stool Rotavirus (PCR) Stool Adenovirus (PCR) Stool Astrovirus (PCR) Stool Cryptosporidium PCR Stl E.coli Shiga Tox PCR St Sh/Enteroin Ecoli PCR Stool E coli O157 PCR Stl Enterotoxigenic E PCR Stool EPEC (PCR) Stl E. histolytica PCR Stool Giardia Lamblia PCR Stool Sapovirus (PCR) Stl P. shigelloides PCR St Y.enterocolitica PCR Stool Vibrio (PCR) Stl Vibrio cholerae PCR Stl Enteroaggr Ecoli PCR Stl Norovirus GI/GII PCR Ketones 3.66 H Chlamy pneumoniae PCR Adenovirus (PCR) B. pertussis DNA (PCR) B.parapertussis DNA PCR Campylobacter (PCR) C. difficile Tox (PCR) Coronavirus OC43 (PCR) Coronavirus HKU1 (PCR) Coronavirus 229E (PCR) SARS-CoV-2 (PCR) Coronavirus NL63 (PCR) Human Metapneumovir PCR Influenza Type A (PCR) Influenza Type B (PCR) M. pneumoniae (PCR) Parainfluenza 1 (PCR) Parainfluenza 2 (PCR) Parainfluenza 3 (PCR) Parainfluenza 4 (PCR) RSV (PCR) Entero/Rhino (PCR) Salmonella (PCR) 06/20/22 06/20/22 06/20/22 10:45 11:44 12:15 WBC RBC Hgb Hct MCV MCH MCHC RDW Plt Count Neut % (Auto) Lymph % (Auto) [place] % (Auto) Eos % (Auto) Baso % (Auto) Neut # (Auto) Lymph # (Auto) [place] # (Auto) Eos # (Auto) Baso # (Auto) ABG pH 7.47 H ABG pCO2 23.9 L* ABG pO2 128 H ABG HCO3 18 L ABG Total CO2 18 L ABG O2 Saturation 99 ABG Base Excess -6.0 L FiO2 20 Sodium Potassium Chloride Carbon Dioxide BUN Creatinine Estimated GFR BUN/Creatinine Ratio Glucose Hemoglobin A1c Lactate 4.4 H* Calcium Magnesium Total Bilirubin AST ALT Alkaline Phosphatase Troponin I NT-Pro-B Natriuret Pep Total Protein Albumin Globulin Albumin/Globulin Ratio Lipase Procalcitonin TSH Urine Color Yellow Urine Appearance Slightly cloudy Urine pH 5.0 Ur Specific [place] 1.015 Urine Protein 3+ H Urine Glucose (UA) 2+ H Urine Ketones 2+ H Urine Occult Blood 1+ H Urine Nitrate Negative Urine Bilirubin Negative Urine Urobilinogen 0.2 Ur Leukocyte Esterase Negative Urine RBC 1-5/hpf Urine WBC 0-1/hpf Ur Squamous Epith Cells 0-1 /hpf Amorphous Sediment 1+ Urine Bacteria None seen Ur Culture Indicated? Cult not indicated Stl C. cayetanensis PCR Stool Rotavirus (PCR) Stool Adenovirus (PCR) Stool Astrovirus (PCR) Stool Cryptosporidium PCR Stl E.coli Shiga Tox PCR St Sh/Enteroin Ecoli PCR Stool E coli O157 PCR Stl Enterotoxigenic E PCR Stool EPEC (PCR) Stl E. histolytica PCR Stool Giardia Lamblia PCR Stool Sapovirus (PCR) Stl P. shigelloides PCR St Y.enterocolitica PCR Stool Vibrio (PCR) Stl Vibrio cholerae PCR Stl Enteroaggr Ecoli PCR Stl Norovirus GI/GII PCR Ketones Chlamy pneumoniae PCR Adenovirus (PCR) B. pertussis DNA (PCR) B.parapertussis DNA PCR Campylobacter (PCR) C. difficile Tox (PCR) Coronavirus OC43 (PCR) Coronavirus HKU1 (PCR) Coronavirus 229E (PCR) SARS-CoV-2 (PCR) Coronavirus NL63 (PCR) Human Metapneumovir PCR Influenza Type A (PCR) Influenza Type B (PCR) M. pneumoniae (PCR) Parainfluenza 1 (PCR) Parainfluenza 2 (PCR) Parainfluenza 3 (PCR) Parainfluenza 4 (PCR) RSV (PCR) Entero/Rhino (PCR) Salmonella (PCR) 06/20/22 06/20/22 06/20/22 12:43 12:45 12:50 WBC RBC Hgb Hct MCV MCH MCHC RDW Plt Count Neut % (Auto) Lymph % (Auto) [place] % (Auto) Eos % (Auto) Baso % (Auto) Neut # (Auto) Lymph # (Auto) [place] # (Auto) Eos # (Auto) Baso # (Auto) ABG pH ABG pCO2 ABG pO2 ABG HCO3 ABG Total CO2 ABG O2 Saturation ABG Base Excess FiO2 Sodium Potassium Chloride Carbon Dioxide BUN Creatinine Estimated GFR BUN/Creatinine Ratio Glucose Hemoglobin A1c Lactate Calcium Magnesium Total Bilirubin AST ALT Alkaline Phosphatase Troponin I NT-Pro-B Natriuret Pep Total Protein Albumin Globulin Albumin/Globulin Ratio Lipase Procalcitonin TSH 1.24 Urine Color Urine Appearance Urine pH Ur Specific [place] Urine Protein Urine Glucose (UA) Urine Ketones Urine Occult Blood Urine Nitrate Urine Bilirubin Urine Urobilinogen Ur Leukocyte Esterase Urine RBC Urine WBC Ur Squamous Epith Cells Amorphous Sediment Urine Bacteria Ur Culture Indicated? Stl C. cayetanensis PCR Cancelled Stool Rotavirus (PCR) Cancelled Stool Adenovirus (PCR) Cancelled Stool Astrovirus (PCR) Cancelled Stool Cryptosporidium PCR Cancelled Stl E.coli Shiga Tox PCR Cancelled St Sh/Enteroin Ecoli PCR Cancelled Stool E coli O157 PCR Cancelled Stl Enterotoxigenic E PCR Cancelled Stool EPEC (PCR) Cancelled Stl E. histolytica PCR Cancelled Stool Giardia Lamblia PCR Cancelled Stool Sapovirus (PCR) Cancelled Stl P. shigelloides PCR Cancelled St Y.enterocolitica PCR Cancelled Stool Vibrio (PCR) Cancelled Stl Vibrio cholerae PCR Cancelled Stl Enteroaggr Ecoli PCR Cancelled Stl Norovirus GI/GII PCR Cancelled Ketones Chlamy pneumoniae PCR Not detected Adenovirus (PCR) Not detected B. pertussis DNA (PCR) Not detected B.parapertussis DNA PCR Not detected Campylobacter (PCR) Cancelled C. difficile Tox (PCR) Cancelled Coronavirus OC43 (PCR) Not detected Coronavirus HKU1 (PCR) Not detected Coronavirus 229E (PCR) Not detected SARS-CoV-2 (PCR) Not detected Coronavirus NL63 (PCR) Not detected Human Metapneumovir PCR Not detected Influenza Type A (PCR) Not detected Influenza Type B (PCR) Not detected M. pneumoniae (PCR) Not detected Parainfluenza 1 (PCR) Not detected Parainfluenza 2 (PCR) Not detected Parainfluenza 3 (PCR) Not detected Parainfluenza 4 (PCR) Not detected RSV (PCR) Not detected Entero/Rhino (PCR) Not detected Salmonella (PCR) Cancelled 06/20/22 06/20/22 06/20/22 14:28 17:04 17:19 WBC RBC Hgb Hct MCV MCH MCHC RDW Plt Count Neut % (Auto) Lymph % (Auto) [place] % (Auto) Eos % (Auto) Baso % (Auto) Neut # (Auto) Lymph # (Auto) [place] # (Auto) Eos # (Auto) Baso # (Auto) ABG pH ABG pCO2 ABG pO2 ABG HCO3 ABG Total CO2 ABG O2 Saturation ABG Base Excess FiO2 Sodium Potassium Chloride Carbon Dioxide BUN Creatinine Estimated GFR BUN/Creatinine Ratio Glucose Hemoglobin A1c 8.8 H Lactate 3.7 H 3.9 H Calcium Magnesium Total Bilirubin AST ALT Alkaline Phosphatase Troponin I NT-Pro-B Natriuret Pep Total Protein Albumin Globulin Albumin/Globulin Ratio Lipase Procalcitonin TSH Urine Color Urine Appearance Urine pH Ur Specific [place] Urine Protein Urine Glucose (UA) Urine Ketones Urine Occult Blood Urine Nitrate Urine Bilirubin Urine Urobilinogen Ur Leukocyte Esterase Urine RBC Urine WBC Ur Squamous Epith Cells Amorphous Sediment Urine Bacteria Ur Culture Indicated? Stl C. cayetanensis PCR Stool Rotavirus (PCR) Stool Adenovirus (PCR) Stool Astrovirus (PCR) Stool Cryptosporidium PCR Stl E.coli Shiga Tox PCR St Sh/Enteroin Ecoli PCR Stool E coli O157 PCR Stl Enterotoxigenic E PCR Stool EPEC (PCR) Stl E. histolytica PCR Stool Giardia Lamblia PCR Stool Sapovirus (PCR) Stl P. shigelloides PCR St Y.enterocolitica PCR Stool Vibrio (PCR) Stl Vibrio cholerae PCR Stl Enteroaggr Ecoli PCR Stl Norovirus GI/GII PCR Ketones Chlamy pneumoniae PCR Adenovirus (PCR) B. pertussis DNA (PCR) B.parapertussis DNA PCR Campylobacter (PCR) C. difficile Tox (PCR) Coronavirus OC43 (PCR) Coronavirus HKU1 (PCR) Coronavirus 229E (PCR) SARS-CoV-2 (PCR) Coronavirus NL63 (PCR) Human Metapneumovir PCR Influenza Type A (PCR) Influenza Type B (PCR) M. pneumoniae (PCR) Parainfluenza 1 (PCR) Parainfluenza 2 (PCR) Parainfluenza 3 (PCR) Parainfluenza 4 (PCR) RSV (PCR) Entero/Rhino (PCR) Salmonella (PCR) 06/20/22 17:19 WBC RBC Hgb Hct MCV MCH MCHC RDW Plt Count Neut % (Auto) Lymph % (Auto) [place] % (Auto) Eos % (Auto) Baso % (Auto) Neut # (Auto) Lymph # (Auto) [place] # (Auto) Eos # (Auto) Baso # (Auto) ABG pH ABG pCO2 ABG pO2 ABG HCO3 ABG Total CO2 ABG O2 Saturation ABG Base Excess FiO2 Sodium 139 Potassium 4.4 Chloride 106 Carbon Dioxide 20 L BUN 19 Creatinine 0.85 Estimated GFR > 60 BUN/Creatinine Ratio 22.4 H Glucose 255 H D Hemoglobin A1c Lactate Calcium 8.7 Magnesium Total Bilirubin AST ALT Alkaline Phosphatase Troponin I NT-Pro-B Natriuret Pep Total Protein Albumin Globulin Albumin/Globulin Ratio Lipase Procalcitonin TSH Urine Color Urine Appearance Urine pH Ur Specific [place] Urine Protein Urine Glucose (UA) Urine Ketones Urine Occult Blood Urine Nitrate Urine Bilirubin Urine Urobilinogen Ur Leukocyte Esterase Urine RBC Urine WBC Ur Squamous Epith Cells Amorphous Sediment Urine Bacteria Ur Culture Indicated? Stl C. cayetanensis PCR Stool Rotavirus (PCR) Stool Adenovirus (PCR) Stool Astrovirus (PCR) Stool Cryptosporidium PCR Stl E.coli Shiga Tox PCR St Sh/Enteroin Ecoli PCR Stool E coli O157 PCR Stl Enterotoxigenic E PCR Stool EPEC (PCR) Stl E. histolytica PCR Stool Giardia Lamblia PCR Stool Sapovirus (PCR) Stl P. shigelloides PCR St Y.enterocolitica PCR Stool Vibrio (PCR) Stl Vibrio cholerae PCR Stl Enteroaggr Ecoli PCR Stl Norovirus GI/GII PCR Ketones Chlamy pneumoniae PCR Adenovirus (PCR) B. pertussis DNA (PCR) B.parapertussis DNA PCR Campylobacter (PCR) C. difficile Tox (PCR) Coronavirus OC43 (PCR) Coronavirus HKU1 (PCR) Coronavirus 229E (PCR) SARS-CoV-2 (PCR) Coronavirus NL63 (PCR) Human Metapneumovir PCR Influenza Type A (PCR) Influenza Type B (PCR) M. pneumoniae (PCR) Parainfluenza 1 (PCR) Parainfluenza 2 (PCR) Parainfluenza 3 (PCR) Parainfluenza 4 (PCR) RSV (PCR) Entero/Rhino (PCR) Salmonella (PCR) Assessment & Plan Assessment & Plan narrative: NEURO: -- Seek early mobility -- PT/OT consultation RESP: -- On room air -- Encourage IS ID: # Severe sepsis -- Secondary to intra abdominal -- Pending UA and blood cx -- CT abdomen negative for acute intraabdominal infection -- On zosyn -- Follow up cx data : # Lactic acidosis -- Secodnary to sepsis and dehydration -- Orderd 1 liter LR bolus and switch NS to LR infusion -- Trend lactic acid every 4 hours ENDO: # Hyperglycemia -- Secondary to starvation ketoacidosis and sepsis -- AG is related to lactic acidosis -- BS ~152 -- Will start lantus 40 units BId and stop insulin infusion -- Goal BS < 180 D/w RN at bedside Time Spent With Patient Critical Care time: I spent a total of 35 minutes of critical care time on this patient's care today; this time is exclusive of procedural time.
[2022-06-20 21:09] LABS: Lactate (Lactic Acid) 2.1 mmol/L (0.7-2.1)
[2022-06-20] MEDS: LACTATED RINGERS 1,000 ML 1000 ML IV (21:31)
[2022-06-20] MEDS: ATORVASTATIN 20 MG TABLET 80 MG PO (21:35)
[2022-06-20] MEDS: TRAMADOL 50 MG TABLET PO (21:36)
[2022-06-20] MEDS: APIXABAN 5 MG TABLET PO (21:36)
[2022-06-20] MEDS: PIPERACILLIN/TAZO 3.375 GM in SODIUM CHLORIDE 0.9% 100 ML IV (21:37)
[2022-06-20] MEDS: LACTATED RINGERS 1,000 ML 150 ML IV (22:00)
[2022-06-20] MEDS: INSULIN GLARGINE 100 UNIT/ML 3ML PEN 40 UNIT SUBCUT (22:11)
[2022-06-20 22:49] LABS: Reflexed Lactate in 2 Hours Y
[2022-06-21] VITALS (25 sets, daily range): BP systolic 118–180; BP diastolic 58–94; PULSE 63–94; RESP 0–28; TEMP 36.2–37.2; O2SAT 92–99
[2022-06-21 01:16] LABS: Lactate (Lactic Acid) 0.9 mmol/L (0.7-2.1)
[2022-06-21 01:16] LABS: BUN Creatinine Ratio 21.8 (6-22); Blood Urea Nitrogen 17 mg/dL (9-20); Calcium 8.2 mg/dL (8.4-10.2); Carbon Dioxide 22 mmol/L (22-32); Chloride 105 mmol/L (98-107); Estimated Glomerular Filt Rate > 60 mL/min (>60); Glucose 184 mg/dL (80-110); HEMOLYSIS < 15 (0-50); Potassium 3.8 mmol/L (3.4-5.1); Sodium 135 mmol/L (137-145)
[2022-06-21] MEDS: PIPERACILLIN/TAZO 3.375 GM in SODIUM CHLORIDE 0.9% 100 ML IV ×3 (05:04→20:33)
[2022-06-21 06:28] LABS: Add Manual Diff / Slide Review NO; Basophils Absolute Auto 100 /uL (0-100); Basophils Percent Auto 0.3 % (0-2); Eosinophils Absolute Auto 0 /uL (0-450); Hematocrit 41.7 % (41-53); Hemoglobin 13.6 g/dL (13.5-17.5); Lymphocytes Absolute Auto 1500 /uL (1100-4500); Lymphocytes Percent Auto 7.2 % (25-40); Mean Corpuscular HGB Conc 32.6 % (30-36); Mean Corpuscular Hemoglobin 28.5 PG (26-34); Mean Corpuscular Volume 87.2 fL (80-100); Monocytes Absolute Auto 1500 /uL (0-900); Monocytes Percent Auto 7.3 % (3-14); Neutrophils Absolute Auto 17900 /uL (1500-7000); Neutrophils Percent Auto 85.2 % (50-75); Platelet Count 222 X10^3/uL (150-400); Red Blood Cell Count 4.78 X10^6/uL (4.5-5.9); Red Cell Distribution Width 13.5 % (11.6-14.8)
[2022-06-21 06:42] LABS: Lactate (Lactic Acid) 0.9 mmol/L (0.7-2.1)
[2022-06-21 06:43] LABS: BUN Creatinine Ratio 19.7 (6-22); Blood Urea Nitrogen 15 mg/dL (9-20); Calcium 8.2 mg/dL (8.4-10.2); Carbon Dioxide 23 mmol/L (22-32); Chloride 103 mmol/L (98-107); Estimated Glomerular Filt Rate > 60 mL/min (>60); Glucose 181 mg/dL (80-110); HEMOLYSIS < 15 (0-50); Magnesium 1.9 mg/dL (1.6-2.3); Potassium 3.8 mmol/L (3.4-5.1); Sodium 133 mmol/L (137-145)
[2022-06-21] MEDS: ONDANSETRON 4 MG/2 ML INJ IV ×3 (07:48→22:44)
[2022-06-21] MEDS: LACTATED RINGERS 1,000 ML 150 ML IV (07:48)
[2022-06-21] MEDS: INSULIN LISPRO 100 UNIT/ML 3ML VIAL SUBCUT (08:05)
--- NOTE | 2022-06-21 08:26 | P.PN_ITS ---
Subjective Subjective Date Patient Seen: 06/21/22 Time Patient Seen: 10:00 Interval history: Feeling better today. NVD improving. Now off insulin drip and back on home insulin regimen. Exam Vital Signs (past 8 hours): - 06/21/22 00:30 06/21/22 01:00 06/21/22 01:00 Temperature Pulse Rate 88 73 Respiratory Rate 22 21 Blood Pressure 118/59 L Pulse Oximetry 95 94 Oxygen Delivery Method 06/21/22 01:30 06/21/22 02:00 06/21/22 02:00 Temperature Pulse Rate 77 94 H Respiratory Rate 21 22 Blood Pressure 150/94 H Pulse Oximetry 95 96 Oxygen Delivery Method 06/21/22 02:30 06/21/22 03:00 06/21/22 03:00 Temperature Pulse Rate 75 67 Respiratory Rate 24 16 Blood Pressure 126/60 Pulse Oximetry 95 92 Oxygen Delivery Method 06/21/22 03:30 06/21/22 04:00 06/21/22 04:00 Temperature Pulse Rate 65 77 Respiratory Rate 9 L 7 L Blood Pressure 157/70 H Pulse Oximetry 94 97 Oxygen Delivery Method 06/21/22 03:00 06/21/22 04:30 06/21/22 05:00 Temperature Pulse Rate 66 Respiratory Rate 17 Blood Pressure 162/75 H Pulse Oximetry 96 Oxygen Delivery Method Room Air 06/21/22 05:00 06/21/22 05:30 06/21/22 06:00 Temperature Pulse Rate 69 67 Respiratory Rate 15 19 Blood Pressure 139/76 Pulse Oximetry 97 94 Oxygen Delivery Method 06/21/22 06:00 06/21/22 06:30 06/21/22 07:00 Temperature Pulse Rate 65 80 Respiratory Rate 18 14 Blood Pressure 150/69 H Pulse Oximetry 93 96 Oxygen Delivery Method 06/21/22 07:00 06/21/22 07:43 Temperature 97.2 F L Pulse Rate 64 Respiratory Rate 20 Blood Pressure Pulse Oximetry 95 Oxygen Delivery Method Oxygen Delivery Method Room Air Oxygen Flow Rate 0 Narrative Exam Narrative: GEN: no acute distress HEENT: moist mucous membranes, PERRL NECK: trachea midline, no JVD CV: regular rate and rhythm, no murmurs PULM: clear bilaterally ABD: soft, nontender, nondistended, no organomegaly EXT: warm and well perfused with no edema, rash on bilateral ankles with crusty scab on the right anterior ankle NEURO: awake, alert, oriented, no focal deficits Objective Labs Result Diagrams: 06/21/22 11:20 06/21/22 06:01 Labs: Laboratory Results - last 24 hr 06/20/22 06/20/22 06/20/22 00:35 02:08 10:45 WBC 16.6 H RBC 5.51 Hgb 15.9 Hct 48.1 MCV 87.2 MCH 28.8 MCHC 33.1 RDW 13.3 Plt Count 268 Neut % (Auto) 92.9 H Lymph % (Auto) 5.0 L [place] % (Auto) 1.6 L Eos % (Auto) 0.0 L Baso % (Auto) 0.5 Neut # (Auto) 74111 H Lymph # (Auto) 800 L [place] # (Auto) 300 Eos # (Auto) 0 Baso # (Auto) 100 ABG pH ABG pCO2 ABG pO2 ABG HCO3 ABG Total CO2 ABG O2 Saturation ABG Base Excess FiO2 Sodium 135 L Potassium 3.8 Chloride 105 Carbon Dioxide 22 BUN 17 Creatinine 0.78 Estimated GFR > 60 BUN/Creatinine Ratio 21.8 Glucose 184 H Hemoglobin A1c Lactate Calcium 8.2 L Magnesium Total Bilirubin AST ALT Alkaline Phosphatase Troponin I NT-Pro-B Natriuret Pep Total Protein Albumin Globulin Albumin/Globulin Ratio Lipase Procalcitonin TSH Urine Color Urine Appearance Urine pH Ur Specific [place] Urine Protein Urine Glucose (UA) Urine Ketones Urine Occult Blood Urine Nitrate Urine Bilirubin Urine Urobilinogen Ur Leukocyte Esterase Urine RBC Urine WBC Ur Squamous Epith Cells Amorphous Sediment Urine Bacteria Ur Culture Indicated? Nasal Screen MRSA (PCR) Negative for mrsa Stl C. cayetanensis PCR Stool Rotavirus (PCR) Stool Adenovirus (PCR) Stool Astrovirus (PCR) Stool Cryptosporidium PCR Stl E.coli Shiga Tox PCR St Sh/Enteroin Ecoli PCR Stool E coli O157 PCR Stl Enterotoxigenic E PCR Stool EPEC (PCR) Stl E. histolytica PCR Stool Giardia Lamblia PCR Stool Sapovirus (PCR) Stl P. shigelloides PCR St Y.enterocolitica PCR Stool Vibrio (PCR) Stl Vibrio cholerae PCR Stl Enteroaggr Ecoli PCR Stl Norovirus GI/GII PCR Ketones Chlamy pneumoniae PCR Adenovirus (PCR) B. pertussis DNA (PCR) B.parapertussis DNA PCR Campylobacter (PCR) C. difficile Tox (PCR) Coronavirus OC43 (PCR) Coronavirus HKU1 (PCR) Coronavirus 229E (PCR) SARS-CoV-2 (PCR) Coronavirus NL63 (PCR) Human Metapneumovir PCR Influenza Type A (PCR) Influenza Type B (PCR) M. pneumoniae (PCR) Parainfluenza 1 (PCR) Parainfluenza 2 (PCR) Parainfluenza 3 (PCR) Parainfluenza 4 (PCR) RSV (PCR) Entero/Rhino (PCR) Salmonella (PCR) 06/20/22 06/20/22 06/20/22 10:45 10:45 10:45 WBC RBC Hgb Hct MCV MCH MCHC RDW Plt Count Neut % (Auto) Lymph % (Auto) [place] % (Auto) Eos % (Auto) Baso % (Auto) Neut # (Auto) Lymph # (Auto) [place] # (Auto) Eos # (Auto) Baso # (Auto) ABG pH ABG pCO2 ABG pO2 ABG HCO3 ABG Total CO2 ABG O2 Saturation ABG Base Excess FiO2 Sodium 135 L Potassium 4.9 Chloride 99 Carbon Dioxide 19 L BUN 21 H Creatinine 0.89 Estimated GFR > 60 BUN/Creatinine Ratio 23.6 H Glucose 370 H D Hemoglobin A1c Lactate 4.4 H* Calcium 9.3 Magnesium 1.5 L Total Bilirubin 1.2 AST 36 ALT 28 Alkaline Phosphatase 89 Troponin I < 0.012 NT-Pro-B Natriuret Pep 52 Total Protein 8.2 Albumin 4.4 Globulin 3.8 Albumin/Globulin Ratio 1.2 Lipase 220 Procalcitonin 0.07 TSH Urine Color Urine Appearance Urine pH Ur Specific [place] Urine Protein Urine Glucose (UA) Urine Ketones Urine Occult Blood Urine Nitrate Urine Bilirubin Urine Urobilinogen Ur Leukocyte Esterase Urine RBC Urine WBC Ur Squamous Epith Cells Amorphous Sediment Urine Bacteria Ur Culture Indicated? Nasal Screen MRSA (PCR) Stl C. cayetanensis PCR Stool Rotavirus (PCR) Stool Adenovirus (PCR) Stool Astrovirus (PCR) Stool Cryptosporidium PCR Stl E.coli Shiga Tox PCR St Sh/Enteroin Ecoli PCR Stool E coli O157 PCR Stl Enterotoxigenic E PCR Stool EPEC (PCR) Stl E. histolytica PCR Stool Giardia Lamblia PCR Stool Sapovirus (PCR) Stl P. shigelloides PCR St Y.enterocolitica PCR Stool Vibrio (PCR) Stl Vibrio cholerae PCR Stl Enteroaggr Ecoli PCR Stl Norovirus GI/GII PCR Ketones 3.66 H Chlamy pneumoniae PCR Adenovirus (PCR) B. pertussis DNA (PCR) B.parapertussis DNA PCR Campylobacter (PCR) C. difficile Tox (PCR) Coronavirus OC43 (PCR) Coronavirus HKU1 (PCR) Coronavirus 229E (PCR) SARS-CoV-2 (PCR) Coronavirus NL63 (PCR) Human Metapneumovir PCR Influenza Type A (PCR) Influenza Type B (PCR) M. pneumoniae (PCR) Parainfluenza 1 (PCR) Parainfluenza 2 (PCR) Parainfluenza 3 (PCR) Parainfluenza 4 (PCR) RSV (PCR) Entero/Rhino (PCR) Salmonella (PCR) 06/20/22 06/20/22 06/20/22 11:44 12:15 12:43 WBC RBC Hgb Hct MCV MCH MCHC RDW Plt Count Neut % (Auto) Lymph % (Auto) [place] % (Auto) Eos % (Auto) Baso % (Auto) Neut # (Auto) Lymph # (Auto) [place] # (Auto) Eos # (Auto) Baso # (Auto) ABG pH 7.47 H ABG pCO2 23.9 L* ABG pO2 128 H ABG HCO3 18 L ABG Total CO2 18 L ABG O2 Saturation 99 ABG Base Excess -6.0 L FiO2 20 Sodium Potassium Chloride Carbon Dioxide BUN Creatinine Estimated GFR BUN/Creatinine Ratio Glucose Hemoglobin A1c Lactate Calcium Magnesium Total Bilirubin AST ALT Alkaline Phosphatase Troponin I NT-Pro-B Natriuret Pep Total Protein Albumin Globulin Albumin/Globulin Ratio Lipase Procalcitonin TSH Urine Color Yellow Urine Appearance Slightly cloudy Urine pH 5.0 Ur Specific [place] 1.015 Urine Protein 3+ H Urine Glucose (UA) 2+ H Urine Ketones 2+ H Urine Occult Blood 1+ H Urine Nitrate Negative Urine Bilirubin Negative Urine Urobilinogen 0.2 Ur Leukocyte Esterase Negative Urine RBC 1-5/hpf Urine WBC 0-1/hpf Ur Squamous Epith Cells 0-1 /hpf Amorphous Sediment 1+ Urine Bacteria None seen Ur Culture Indicated? Cult not indicated Nasal Screen MRSA (PCR) Stl C. cayetanensis PCR Cancelled Stool Rotavirus (PCR) Cancelled Stool Adenovirus (PCR) Cancelled Stool Astrovirus (PCR) Cancelled Stool Cryptosporidium PCR Cancelled Stl E.coli Shiga Tox PCR Cancelled St Sh/Enteroin Ecoli PCR Cancelled Stool E coli O157 PCR Cancelled Stl Enterotoxigenic E PCR Cancelled Stool EPEC (PCR) Cancelled Stl E. histolytica PCR Cancelled Stool Giardia Lamblia PCR Cancelled Stool Sapovirus (PCR) Cancelled Stl P. shigelloides PCR Cancelled St Y.enterocolitica PCR Cancelled Stool Vibrio (PCR) Cancelled Stl Vibrio cholerae PCR Cancelled Stl Enteroaggr Ecoli PCR Cancelled Stl Norovirus GI/GII PCR Cancelled Ketones Chlamy pneumoniae PCR Adenovirus (PCR) B. pertussis DNA (PCR) B.parapertussis DNA PCR Campylobacter (PCR) Cancelled C. difficile Tox (PCR) Cancelled Coronavirus OC43 (PCR) Coronavirus HKU1 (PCR) Coronavirus 229E (PCR) SARS-CoV-2 (PCR) Coronavirus NL63 (PCR) Human Metapneumovir PCR Influenza Type A (PCR) Influenza Type B (PCR) M. pneumoniae (PCR) Parainfluenza 1 (PCR) Parainfluenza 2 (PCR) Parainfluenza 3 (PCR) Parainfluenza 4 (PCR) RSV (PCR) Entero/Rhino (PCR) Salmonella (PCR) Cancelled 06/20/22 06/20/22 06/20/22 12:45 12:50 14:28 WBC RBC Hgb Hct MCV MCH MCHC RDW Plt Count Neut % (Auto) Lymph % (Auto) [place] % (Auto) Eos % (Auto) Baso % (Auto) Neut # (Auto) Lymph # (Auto) [place] # (Auto) Eos # (Auto) Baso # (Auto) ABG pH ABG pCO2 ABG pO2 ABG HCO3 ABG Total CO2 ABG O2 Saturation ABG Base Excess FiO2 Sodium Potassium Chloride Carbon Dioxide BUN Creatinine Estimated GFR BUN/Creatinine Ratio Glucose Hemoglobin A1c Lactate 3.7 H Calcium Magnesium Total Bilirubin AST ALT Alkaline Phosphatase Troponin I NT-Pro-B Natriuret Pep Total Protein Albumin Globulin Albumin/Globulin Ratio Lipase Procalcitonin TSH 1.24 Urine Color Urine Appearance Urine pH Ur Specific [place] Urine Protein Urine Glucose (UA) Urine Ketones Urine Occult Blood Urine Nitrate Urine Bilirubin Urine Urobilinogen Ur Leukocyte Esterase Urine RBC Urine WBC Ur Squamous Epith Cells Amorphous Sediment Urine Bacteria Ur Culture Indicated? Nasal Screen MRSA (PCR) Stl C. cayetanensis PCR Stool Rotavirus (PCR) Stool Adenovirus (PCR) Stool Astrovirus (PCR) Stool Cryptosporidium PCR Stl E.coli Shiga Tox PCR St Sh/Enteroin Ecoli PCR Stool E coli O157 PCR Stl Enterotoxigenic E PCR Stool EPEC (PCR) Stl E. histolytica PCR Stool Giardia Lamblia PCR Stool Sapovirus (PCR) Stl P. shigelloides PCR St Y.enterocolitica PCR Stool Vibrio (PCR) Stl Vibrio cholerae PCR Stl Enteroaggr Ecoli PCR Stl Norovirus GI/GII PCR Ketones Chlamy pneumoniae PCR Not detected Adenovirus (PCR) Not detected B. pertussis DNA (PCR) Not detected B.parapertussis DNA PCR Not detected Campylobacter (PCR) C. difficile Tox (PCR) Coronavirus OC43 (PCR) Not detected Coronavirus HKU1 (PCR) Not detected Coronavirus 229E (PCR) Not detected SARS-CoV-2 (PCR) Not detected Coronavirus NL63 (PCR) Not detected Human Metapneumovir PCR Not detected Influenza Type A (PCR) Not detected Influenza Type B (PCR) Not detected M. pneumoniae (PCR) Not detected Parainfluenza 1 (PCR) Not detected Parainfluenza 2 (PCR) Not detected Parainfluenza 3 (PCR) Not detected Parainfluenza 4 (PCR) Not detected RSV (PCR) Not detected Entero/Rhino (PCR) Not detected Salmonella (PCR) 06/20/22 06/20/22 06/20/22 17:04 17:19 17:19 WBC RBC Hgb Hct MCV MCH MCHC RDW Plt Count Neut % (Auto) Lymph % (Auto) [place] % (Auto) Eos % (Auto) Baso % (Auto) Neut # (Auto) Lymph # (Auto) [place] # (Auto) Eos # (Auto) Baso # (Auto) ABG pH ABG pCO2 ABG pO2 ABG HCO3 ABG Total CO2 ABG O2 Saturation ABG Base Excess FiO2 Sodium 139 Potassium 4.4 Chloride 106 Carbon Dioxide 20 L BUN 19 Creatinine 0.85 Estimated GFR > 60 BUN/Creatinine Ratio 22.4 H Glucose 255 H D Hemoglobin A1c 8.8 H Lactate 3.9 H Calcium 8.7 Magnesium Total Bilirubin AST ALT Alkaline Phosphatase Troponin I NT-Pro-B Natriuret Pep Total Protein Albumin Globulin Albumin/Globulin Ratio Lipase Procalcitonin TSH Urine Color Urine Appearance Urine pH Ur Specific [place] Urine Protein Urine Glucose (UA) Urine Ketones Urine Occult Blood Urine Nitrate Urine Bilirubin Urine Urobilinogen Ur Leukocyte Esterase Urine RBC Urine WBC Ur Squamous Epith Cells Amorphous Sediment Urine Bacteria Ur Culture Indicated? Nasal Screen MRSA (PCR) Stl C. cayetanensis PCR Stool Rotavirus (PCR) Stool Adenovirus (PCR) Stool Astrovirus (PCR) Stool Cryptosporidium PCR Stl E.coli Shiga Tox PCR St Sh/Enteroin Ecoli PCR Stool E coli O157 PCR Stl Enterotoxigenic E PCR Stool EPEC (PCR) Stl E. histolytica PCR Stool Giardia Lamblia PCR Stool Sapovirus (PCR) Stl P. shigelloides PCR St Y.enterocolitica PCR Stool Vibrio (PCR) Stl Vibrio cholerae PCR Stl Enteroaggr Ecoli PCR Stl Norovirus GI/GII PCR Ketones Chlamy pneumoniae PCR Adenovirus (PCR) B. pertussis DNA (PCR) B.parapertussis DNA PCR Campylobacter (PCR) C. difficile Tox (PCR) Coronavirus OC43 (PCR) Coronavirus HKU1 (PCR) Coronavirus 229E (PCR) SARS-CoV-2 (PCR) Coronavirus NL63 (PCR) Human Metapneumovir PCR Influenza Type A (PCR) Influenza Type B (PCR) M. pneumoniae (PCR) Parainfluenza 1 (PCR) Parainfluenza 2 (PCR) Parainfluenza 3 (PCR) Parainfluenza 4 (PCR) RSV (PCR) Entero/Rhino (PCR) Salmonella (PCR) 06/20/22 06/21/22 06/21/22 20:45 00:35 06:01 WBC RBC Hgb Hct MCV MCH MCHC RDW Plt Count Neut % (Auto) Lymph % (Auto) [place] % (Auto) Eos % (Auto) Baso % (Auto) Neut # (Auto) Lymph # (Auto) [place] # (Auto) Eos # (Auto) Baso # (Auto) ABG pH ABG pCO2 ABG pO2 ABG HCO3 ABG Total CO2 ABG O2 Saturation ABG Base Excess FiO2 Sodium Potassium Chloride Carbon Dioxide BUN Creatinine Estimated GFR BUN/Creatinine Ratio Glucose Hemoglobin A1c Lactate 2.1 0.9 0.9 Calcium Magnesium Total Bilirubin AST ALT Alkaline Phosphatase Troponin I NT-Pro-B Natriuret Pep Total Protein Albumin Globulin Albumin/Globulin Ratio Lipase Procalcitonin TSH Urine Color Urine Appearance Urine pH Ur Specific [place] Urine Protein Urine Glucose (UA) Urine Ketones Urine Occult Blood Urine Nitrate Urine Bilirubin Urine Urobilinogen Ur Leukocyte Esterase Urine RBC Urine WBC Ur Squamous Epith Cells Amorphous Sediment Urine Bacteria Ur Culture Indicated? Nasal Screen MRSA (PCR) Stl C. cayetanensis PCR Stool Rotavirus (PCR) Stool Adenovirus (PCR) Stool Astrovirus (PCR) Stool Cryptosporidium PCR Stl E.coli Shiga Tox PCR St Sh/Enteroin Ecoli PCR Stool E coli O157 PCR Stl Enterotoxigenic E PCR Stool EPEC (PCR) Stl E. histolytica PCR Stool Giardia Lamblia PCR Stool Sapovirus (PCR) Stl P. shigelloides PCR St Y.enterocolitica PCR Stool Vibrio (PCR) Stl Vibrio cholerae PCR Stl Enteroaggr Ecoli PCR Stl Norovirus GI/GII PCR Ketones Chlamy pneumoniae PCR Adenovirus (PCR) B. pertussis DNA (PCR) B.parapertussis DNA PCR Campylobacter (PCR) C. difficile Tox (PCR) Coronavirus OC43 (PCR) Coronavirus HKU1 (PCR) Coronavirus 229E (PCR) SARS-CoV-2 (PCR) Coronavirus NL63 (PCR) Human Metapneumovir PCR Influenza Type A (PCR) Influenza Type B (PCR) M. pneumoniae (PCR) Parainfluenza 1 (PCR) Parainfluenza 2 (PCR) Parainfluenza 3 (PCR) Parainfluenza 4 (PCR) RSV (PCR) Entero/Rhino (PCR) Salmonella (PCR) 06/21/22 06/21/22 06/21/22 06:01 06:01 06:01 WBC 21.0 H RBC 4.78 Hgb 13.6 Hct 41.7 MCV 87.2 MCH 28.5 MCHC 32.6 RDW 13.5 Plt Count 222 Neut % (Auto) 85.2 H Lymph % (Auto) 7.2 L [place] % (Auto) 7.3 Eos % (Auto) 0.0 L Baso % (Auto) 0.3 Neut # (Auto) 42649 H Lymph # (Auto) 1500 [place] # (Auto) 1500 H Eos # (Auto) 0 Baso # (Auto) 100 ABG pH ABG pCO2 ABG pO2 ABG HCO3 ABG Total CO2 ABG O2 Saturation ABG Base Excess FiO2 Sodium 133 L Potassium 3.8 Chloride 103 Carbon Dioxide 23 BUN 15 Creatinine 0.76 Estimated GFR > 60 BUN/Creatinine Ratio 19.7 Glucose 181 H Hemoglobin A1c Lactate Calcium 8.2 L Magnesium 1.9 Total Bilirubin AST ALT Alkaline Phosphatase Troponin I NT-Pro-B Natriuret Pep Total Protein Albumin Globulin Albumin/Globulin Ratio Lipase Procalcitonin TSH Urine Color Urine Appearance Urine pH Ur Specific [place] Urine Protein Urine Glucose (UA) Urine Ketones Urine Occult Blood Urine Nitrate Urine Bilirubin Urine Urobilinogen Ur Leukocyte Esterase Urine RBC Urine WBC Ur Squamous Epith Cells Amorphous Sediment Urine Bacteria Ur Culture Indicated? Nasal Screen MRSA (PCR) Stl C. cayetanensis PCR Stool Rotavirus (PCR) Stool Adenovirus (PCR) Stool Astrovirus (PCR) Stool Cryptosporidium PCR Stl E.coli Shiga Tox PCR St Sh/Enteroin Ecoli PCR Stool E coli O157 PCR Stl Enterotoxigenic E PCR Stool EPEC (PCR) Stl E. histolytica PCR Stool Giardia Lamblia PCR Stool Sapovirus (PCR) Stl P. shigelloides PCR St Y.enterocolitica PCR Stool Vibrio (PCR) Stl Vibrio cholerae PCR Stl Enteroaggr Ecoli PCR Stl Norovirus GI/GII PCR Ketones Chlamy pneumoniae PCR Adenovirus (PCR) B. pertussis DNA (PCR) B.parapertussis DNA PCR Campylobacter (PCR) C. difficile Tox (PCR) Coronavirus OC43 (PCR) Coronavirus HKU1 (PCR) Coronavirus 229E (PCR) SARS-CoV-2 (PCR) Coronavirus NL63 (PCR) Human Metapneumovir PCR Influenza Type A (PCR) Influenza Type B (PCR) M. pneumoniae (PCR) Parainfluenza 1 (PCR) Parainfluenza 2 (PCR) Parainfluenza 3 (PCR) Parainfluenza 4 (PCR) RSV (PCR) Entero/Rhino (PCR) Salmonella (PCR) [facility] Medical History Hyperlipidemia Hypertension Stroke Type 1 diabetes Social History household members: none Smoking Status: Former smoker alcohol intake: current Assessment & Plan Assessment & Plan narrative: # acute diabetic vs starvation ketoacidosis, resolved -initial glucose 370, gap 17 and positive serum ketones (beta hydroxybutyrate) at 3.66 -insulin drip weaned off -A1c 8.8% -diabetes education consult -resp PCR normal # acute lactic acidosis, resolved -4.4 on admission, currently 0.9 # hypomagnesemia, resolved -1.5 on admission -gave 4g IV mag -daily mag checks # acute leukocytosis -WBC 16.6 on admission, no obvious source of infection other than diarrhea, chest x-ray normal, UA normal -blood cultures pending, check sputum -start Zosyn and add vanco due to persistently elevated WBC -f/u stool PCR -wound care consult for ankle crusty wound # acute nausea vomiting and diarrhea, improving -nausea and vomiting likely secondary to DKA, CT abdomen and pelvis unremarkable other than mild AAA -check stool PCR for viral/bacterial gastroenteritis -Zosyn as above -Zofran PRN # mild abdominal aortic aneurysm -seen incidentally on CT abdomen and measuring 3.7 cm -outpatient follow-up with ultrasound in 2 years # chronic HARRIS -continue home eliquis and lipitor # acute lower extremity bug bites with distal LE rash -per patient likely secondary to bedbugs -place in contact isolation -hydrocortisone topical PRN # hypertensive urgency -BP as high as 207/92 in ED -continue home lisinopril -labetalol IV PRN for SBP >190 or DBP >110 Code status is full code. COVID negative. DVT prophylaxis with heparin subcu. Proxy is friend Destiney. I have reviewed home meds and used all available resources to reconcile the home meds. Time Spent With Patient Critical Care time: I spent a total of [] minutes of critical care time on this patient's care today; this time is exclusive of procedural time. Quality VTE Deep Vein Thrombosis/Pulmonary Embolism Present on Admission: No
[2022-06-21] MEDS: APIXABAN 5 MG TABLET PO ×2 (08:33→20:33)
[2022-06-21] MEDS: lisinopriL 10 MG TABLET PO (08:33)
[2022-06-21] MEDS: PANTOPRAZOLE DR 40 MG TABLET PO (08:33)
[2022-06-21] MEDS: INSULIN GLARGINE 100 UNIT/ML 3ML PEN 40 UNIT SUBCUT ×2 (08:34→20:33)
[2022-06-21] MEDS: METOCLOPRAMIDE 10 MG/2 ML INJ IV ×2 (09:58→15:57)
[2022-06-21 11:38] LABS: Add Manual Diff / Slide Review NO; Basophils Absolute Auto 100 /uL (0-100); Basophils Percent Auto 0.3 % (0-2); Eosinophils Absolute Auto 0 /uL (0-450); Eosinophils Percent Auto 0.1 % (2-4); Hematocrit 43.3 % (41-53); Hemoglobin 14.4 g/dL (13.5-17.5); Lymphocytes Absolute Auto 1300 /uL (1100-4500); Lymphocytes Percent Auto 5.6 % (25-40); Mean Corpuscular HGB Conc 33.3 % (30-36); Mean Corpuscular Hemoglobin 28.9 PG (26-34); Mean Corpuscular Volume 86.8 fL (80-100); Monocytes Absolute Auto 900 /uL (0-900); Monocytes Percent Auto 3.8 % (3-14); Neutrophils Absolute Auto 20400 /uL (1500-7000); Neutrophils Percent Auto 90.2 % (50-75); Platelet Count 226 X10^3/uL (150-400); Red Blood Cell Count 4.99 X10^6/uL (4.5-5.9); Red Cell Distribution Width 13.5 % (11.6-14.8); White Blood Cell Count 22.6 X10^3/uL (4.5-11.0)
--- NOTE | 2022-06-21 15:20 | CM.IDA ---
Initial DCP Assessment Patient is 61 y/o male who presents to due to concern for DKA. Patient also presents with bed bugs. Patient's PCP is HARMEET Banda and patient has [employer], Medicaid and Medicare insurance. Patient has hx of Type 1 Diabetes, Stroke, and Hyperlipidemia NETWORKS SOFTWARE CONSULTANT enters room to meet with patient. Patient presents as A/Ox3. Patient endorses that he is feeling better. Patient endorses that he resides at home alone with his cat. Patient endorses his mother resided with him but she 2 weeks ago. Patient endorses independence with ADLs and able to ambulate. Patient endorses he has neighbors but denies supports. Patient endorses emergency contact is friend but she is disabled. NETWORKS SOFTWARE CONSULTANT asks patient about bed bugs in home and patient endorses he plans to bug bomb his home. Patient endorses his plan to f/u with PCP as well. NETWORKS SOFTWARE CONSULTANT asks about patient needs upon d/c and patient states he will need a ride home as he came to via ambulance and does not have anyone that could provide a ride for him. Plan: Patient to d/c to home via Medicaid taxi transport upon medical clearance. Per RN, patient likely to d/c to home tomorrow. LEANNA Doe Discharge Planning/Care Management CM Discharge Assessment Start: 06/21/22 15:16 Freq: Status: Active Protocol: Document 06/21/22 15:16 LN (Rec: 06/21/22 15:19 LN [id number]) Discharge Planning Assessment Assigned Clinical Documentation Specialist LEANNA Godinez Advance Directives? No History Provided By Patient,Medical Record Has Patient been admitted in last 30 No days? Prior Living Arrangements House Household Members none Type of transporation used prior to Drives own vehicle admit Independent with ADL's Yes Is patient alert and oriented? Yes Comment Patient will need Medicaid taxi upon d/c due to patient not able to identify any friends or family and patient arrived to via ambulance. Discharge Plan Home Referrals Initiated None needed Please Provide Date Initial DC 06/21/22 Assessment Was Performed
[2022-06-21] MEDS: VANCOMYCIN 1,500 MG/300 ML PIGGYBACK 200 MG IV (18:24)
[2022-06-21] MEDS: ATORVASTATIN 20 MG TABLET 80 MG PO (20:33)
[2022-06-21] MEDS: HYDROCORTISONE 1% CREAM 28 GM 1 APPLIC TOP (22:45)
[2022-06-22] MEDS: METOCLOPRAMIDE 10 MG/2 ML INJ IV ×2 (02:24→12:13)
[2022-06-22 04:00] VITALS: BP 156/78; PULSE 65; RESP 12; TEMP 36.8; O2SAT 98
[2022-06-22] MEDS: VANCOMYCIN 1,500 MG/300 ML PIGGYBACK 200 MG IV (05:09)
[2022-06-22] MEDS: HYDROCORTISONE 1% CREAM 28 GM 1 APPLIC TOP (05:10)
[2022-06-22] MEDS: PIPERACILLIN/TAZO 3.375 GM in SODIUM CHLORIDE 0.9% 100 ML IV ×2 (05:10→12:13)
[2022-06-22 06:12] LABS: Add Manual Diff / Slide Review NO; Basophils Absolute Auto 100 /uL (0-100); Basophils Percent Auto 0.4 % (0-2); Eosinophils Absolute Auto 0 /uL (0-450); Eosinophils Percent Auto 0.2 % (2-4); Hematocrit 43.8 % (41-53); Hemoglobin 14.4 g/dL (13.5-17.5); Lymphocytes Absolute Auto 1700 /uL (1100-4500); Lymphocytes Percent Auto 9.5 % (25-40); Mean Corpuscular Hemoglobin 28.6 PG (26-34); Mean Corpuscular Volume 86.9 fL (80-100); Monocytes Absolute Auto 1200 /uL (0-900); Monocytes Percent Auto 6.6 % (3-14); Neutrophils Absolute Auto 15100 /uL (1500-7000); Neutrophils Percent Auto 83.3 % (50-75); Platelet Count 245 X10^3/uL (150-400); Red Blood Cell Count 5.04 X10^6/uL (4.5-5.9); White Blood Cell Count 18.1 X10^3/uL (4.5-11.0)
[2022-06-22 06:30] LABS: Magnesium 1.7 mg/dL (1.6-2.3)
[2022-06-22] MEDS: ONDANSETRON 4 MG/2 ML INJ IV (08:14)
[2022-06-22] MEDS: PANTOPRAZOLE DR 40 MG TABLET PO (08:15)
[2022-06-22] MEDS: lisinopriL 10 MG TABLET PO (08:15)
[2022-06-22] MEDS: APIXABAN 5 MG TABLET PO (08:15)
--- NOTE | 2022-06-22 08:23 | P.PN_ITS ---
Exam Vital Signs (past 8 hours): - 06/22/22 04:00 Temperature 98.2 F Pulse Rate 65 Respiratory Rate 12 Blood Pressure 156/78 H Pulse Oximetry 98 Oxygen Delivery Method Room Air Oxygen Flow Rate 0 Narrative Exam Narrative: GEN: no acute distress HEENT: moist mucous membranes, PERRL NECK: trachea midline, no JVD CV: regular rate and rhythm, no murmurs PULM: clear bilaterally ABD: soft, nontender, nondistended, no organomegaly EXT: warm and well perfused with no edema, rash on bilateral ankles with crusty scab on the right anterior ankle NEURO: awake, alert, oriented, no focal deficits Objective Labs Result Diagrams: 06/22/22 05:27 06/21/22 06:01 Labs: Laboratory Results - last 24 hr 06/21/22 06/22/22 06/22/22 11:20 05:27 05:27 WBC 22.6 H 18.1 H RBC 4.99 5.04 Hgb 14.4 14.4 Hct 43.3 43.8 MCV 86.8 86.9 MCH 28.9 28.6 MCHC 33.3 33.0 RDW 13.5 13.0 Plt Count 226 245 Neut % (Auto) 90.2 H 83.3 H Lymph % (Auto) 5.6 L 9.5 L [place] % (Auto) 3.8 6.6 Eos % (Auto) 0.1 L 0.2 L Baso % (Auto) 0.3 0.4 Neut # (Auto) 07136 H 66172 H Lymph # (Auto) 1300 1700 [place] # (Auto) 900 1200 H Eos # (Auto) 0 0 Baso # (Auto) 100 100 Magnesium 1.7 PFSH Medical History Hyperlipidemia Hypertension Stroke Type 1 diabetes Social History household members: none Smoking Status: Former smoker alcohol intake: current Assessment & Plan Assessment & Plan narrative: # acute diabetic vs starvation ketoacidosis, resolved -initial glucose 370, gap 17 and positive serum ketones (beta hydroxybutyrate) at 3.66 -insulin drip weaned off -A1c 8.8% -diabetes education consult -resp PCR normal # acute lactic acidosis, resolved -4.4 on admission, currently 0.9 # hypomagnesemia, resolved -1.5 on admission -gave 4g IV mag -daily mag checks # acute leukocytosis -WBC 16.6 on admission, no obvious source of infection other than diarrhea, chest x-ray normal, UA normal -blood cultures pending, check sputum -start Zosyn and add vanco due to persistently elevated WBC -f/u stool PCR -wound care consult for ankle crusty wound # acute nausea vomiting and diarrhea, improving -nausea and vomiting likely secondary to DKA, CT abdomen and pelvis unremarkable other than mild AAA -check stool PCR for viral/bacterial gastroenteritis -Zosyn as above -Zofran PRN # mild abdominal aortic aneurysm -seen incidentally on CT abdomen and measuring 3.7 cm -outpatient follow-up with ultrasound in 2 years # chronic HARRIS -continue home eliquis and lipitor # acute lower extremity bug bites with distal LE rash -per patient likely secondary to bedbugs -place in contact isolation -hydrocortisone topical PRN # hypertensive urgency -BP as high as 207/92 in ED -continue home lisinopril -labetalol IV PRN for SBP >190 or DBP >110 Code status is full code. COVID negative. DVT prophylaxis with heparin subcu. Proxy is friend Destiney. I have reviewed home meds and used all available resources to reconcile the home meds. Time Spent With Patient Critical Care time: I spent a total of [] minutes of critical care time on this patient's care today; this time is exclusive of procedural time. Quality VTE Deep Vein Thrombosis/Pulmonary Embolism Present on Admission: No
[2022-06-22 09:00] VITALS: BP 153/94; PULSE 75; RESP 19; TEMP 36.2; O2SAT 98
[2022-06-22] MEDS: MAGNESIUM CHLORIDE 64 MG TABLET 128 MG PO (09:37)
--- NOTE | 2022-06-22 09:40 | PC.NURSE ---
Patient symptomatic, dizziness with blood sugar of 74 this am, drinking juice, held Lantus dose this am, will address with
--- NOTE | 2022-06-22 11:53 | PC.RNWOUND ---
Right Anterior Ankle Right Anterior Ankle (close up) Patient has a 5 x 6cm area of what appears to be dry, crusty build up of desquamation to right anterior ankle, patient denies pain or itchiness to this area. There is currently no drainage noted but primary nurse says there is occasional oozing of drainange form this area. Patient says this crusted area began a few months ago and that it started as what looked like a bruise. Dorsalis pedis pulses palpable bilaterally, patient says this is from bedbug bites.' Small flake is sent to lab to rule out crusted scabies, skin appears smooth underneath. Patient says, Oh yeah, they come off easily, sometimes I just pick them off where they itch.
[2022-06-22 15:08] LABS: Add Manual Diff / Slide Review NO; Basophils Absolute Auto 100 /uL (0-100); Basophils Percent Auto 0.8 % (0-2); Eosinophils Absolute Auto 100 /uL (0-450); Eosinophils Percent Auto 0.3 % (2-4); Hematocrit 42.9 % (41-53); Hemoglobin 14.1 g/dL (13.5-17.5); Lymphocytes Absolute Auto 1800 /uL (1100-4500); Lymphocytes Percent Auto 11.2 % (25-40); Mean Corpuscular HGB Conc 32.8 % (30-36); Mean Corpuscular Hemoglobin 28.5 PG (26-34); Mean Corpuscular Volume 86.7 fL (80-100); Monocytes Absolute Auto 1200 /uL (0-900); Monocytes Percent Auto 7.9 % (3-14); Neutrophils Absolute Auto 12600 /uL (1500-7000); Neutrophils Percent Auto 79.8 % (50-75); Platelet Count 224 X10^3/uL (150-400); Red Blood Cell Count 4.94 X10^6/uL (4.5-5.9); Red Cell Distribution Width 13.8 % (11.6-14.8); White Blood Cell Count 15.8 X10^3/uL (4.5-11.0)
[2022-06-22] MEDS: PERMETHRIN 5% CREAM 60 GM 1 APPLIC TOP (15:21)
--- NOTE | 2022-06-22 15:39 | CM.DPC ---
DCP Discharge Home Per MD, pt is medically stable to d/c home today and no identified barriers to discharge. SW met bedside with pt and explained role and he confirms he is agreeable with d/c to home today but still needs Medicaid transport home. SW confirmed he does not use a w/c but ambulates with cane at baseline and will needs Rx filled and picked up at d/c at [facility]. TOÑITO finalized the Medicaid transport form and faxed and put Main RN station number to call back with time for transport as almost end of SW shift and updated LENS SHAPER GRINDER and RN and provide Medicaid transport contact number in case needed. Plan: Patient to d/c home today via Medicaid taxi and pharmacy cook pickled meat and no further SW needs at this time. SAMMY Bundy
--- NOTE | 2022-06-22 16:57 | PM.DS.1 ---
History of Present Illness History of Present Illness Date Patient Seen: 06/22/22 Time Patient Seen: 13:00 Chief complaint: nausea, vomting, diarrhea Narrative: Herve Driver is a 61yo M with PMH of DM1, HTN, HLD, and previous CVA who presents with NVD and found to be in DKA. Patient's intial glucose of 370 with gap of 17 and positive beta-hydroxybutarate ketones. Patient states he developed flu-like symptoms 3 days ago with body aches, NV and diarrhea. He was unable to take in his home insulin due to this. He normally takes 40 units of levemir BID and 12 units with meals. His mom recently at age 91 so he has been unable to see his doctors lately as he was caring for her. He has 90% HARRIS on the left and is on eliquis. Takes lisinopril for his HTN. On arrival to ED he had hyperglycemia and positive ketones so was started on insulin drip. Patient also reports a LE rash on both ankles which he thinks is due to bed bugs. Says it sometimes itches and drains. Discharge Providers Provider Date of admission: 06/20/22 16:39 Discharge Date: 06/22/22 Primary care physician: HARMEET Banda Consults: 06/20/22 17:04 Consult to Dietitian, Adult Routine Comment: Reason For Exam: DKA 06/21/22 13:51 Consult to Inpatient Wound Care Nurse Routine Comment: Reason for consultation: R anterior ankle crusty wound with surrounding rash Discharge provider: Paul Branch DO Summary Hospital Course Discharge Diagnosis: # acute diabetic vs starvation ketoacidosis, resolved -initial glucose 370, gap 17 and positive serum ketones (beta hydroxybutyrate) at 3.66 -insulin drip weaned off -A1c 8.8% -diabetes education consult -resp PCR normal # acute lactic acidosis, resolved -4.4 on admission, currently 0.9 # hypomagnesemia, resolved -1.5 on admission -gave 4g IV mag -daily mag checks # acute leukocytosis, improving -WBC 16.6 on admission, no obvious source of infection other than diarrhea, chest x-ray normal, UA normal -blood cultures pending, check sputum -start Zosyn and add vanco due to persistently elevated WBC -discharged on po levaquin for 7 days # acute nausea vomiting and diarrhea, improving -nausea and vomiting likely secondary to DKA, CT abdomen and pelvis unremarkable other than mild AAA -check stool PCR for viral/bacterial gastroenteritis -Zosyn as above -Zofran PRN # mild abdominal aortic aneurysm -seen incidentally on CT abdomen and measuring 3.7 cm -outpatient follow-up with ultrasound in 2 years # chronic HARRIS -continue home eliquis and lipitor # acute lower extremity bug bites with distal LE rash -per patient likely secondary to bedbugs -place in contact isolation -hydrocortisone topical PRN # hypertensive urgency -BP as high as 207/92 in ED -continue home lisinopril -labetalol IV PRN for SBP >190 or DBP >110 Hospital Course: Admitted for possible DKA with positive ketones, but no acidosis which suggested starvation ketosis in the setting of him not taking his insulin or eating for a few days due to a GI illness with NVD. Was on insulin drip for 1 night then weaned off. Had persistently elevated WBC so was put on broad spectrum abx with improvement in his WBC to 15 from 22. All cultures negative and UA/CXR normal. Discharged on 7 days of po levaquin. Patient also had crusty lesion on his right anterior ankle which did not appear to be infected but there was concern for bed bug bites vs scabies. Curbsided wound care doctor who felt it was likely due to bites and the patient scratching and itching it too often which caused the scabs and lesion. Did not feel that it was scabies. Patient was advised to rid his home of bed bugs and apply steroid cream and keep the area covered to prevent itching. Time Spent with Patient Time spent: Greater than 30 minutes Exam Vital Signs (past 8 hours): - 06/22/22 09:00 Temperature 97.2 F L Pulse Rate 75 Respiratory Rate 19 Blood Pressure 153/94 H Pulse Oximetry 98 Oxygen Flow Rate 0 Oxygen Delivery Method Room Air Oxygen Flow Rate 0 Narrative Exam Narrative: GEN: no acute distress HEENT: moist mucous membranes, PERRL NECK: trachea midline, no JVD CV: regular rate and rhythm, no murmurs PULM: clear bilaterally ABD: soft, nontender, nondistended, no organomegaly EXT: warm and well perfused with no edema, rash on bilateral ankles with crusty scab on the right anterior ankle NEURO: awake, alert, oriented, no focal deficits Objective Labs Result Diagrams: 06/22/22 14:00 06/21/22 06:01 Labs: Laboratory Results - last 24 hr 06/22/22 06/22/22 06/22/22 05:27 05:27 14:00 WBC 18.1 H 15.8 H RBC 5.04 4.94 Hgb 14.4 14.1 Hct 43.8 42.9 MCV 86.9 86.7 MCH 28.6 28.5 MCHC 33.0 32.8 RDW 13.0 13.8 Plt Count 245 224 Neut % (Auto) 83.3 H 79.8 H Lymph % (Auto) 9.5 L 11.2 L [place] % (Auto) 6.6 7.9 Eos % (Auto) 0.2 L 0.3 L Baso % (Auto) 0.4 0.8 Neut # (Auto) 96956 H 84156 H Lymph # (Auto) 1700 1800 [place] # (Auto) 1200 H 1200 H Eos # (Auto) 0 100 Baso # (Auto) 100 100 Magnesium 1.7 PFSH Medical History Hyperlipidemia Hypertension Stroke Type 1 diabetes Social History household members: none Smoking Status: Former smoker alcohol intake: current Discharge Plan Discharge Plan Patient Disposition: Home Provider Discharge Comment: You were admitted with high sugars from not taking your insulin for your diabetes, which was brought on by an illness that we weren't able to identify. All of your cultures were negative. You had an elevated WBC count as well which improved with antibiotics, so I'm sending you on a week of an oral antibiotic to be safe. The lesion on your ankle is likely from scratching and itching so you should keep it covered with a steroid cream applied twice daily. You can pickup hydrocortisone over the counter from the grocery store. Discharge orders & Medications Prescriptions: New levofloxacin 750 mg tablet 750 mg PO DAILY 7 Days Qty: 7 0RF Rx Instructions: start morning of 06/23 Continued atorvastatin 80 mg tablet 80 mg PO DAILY Label Comments: TAKE 1 TABLET BY MOUTH ONCE DAILY pantoprazole 40 mg tablet,delayed release (DR/EC) 40 mg PO DAILY Rx Instructions: ran out 3 days ago Levemir U-100 Insulin 100 unit/mL solution 40 unit SUBCUT BID Label Comments: INJECT 40 UNITS SUBCUTANEOUSLY TWICE DAILY NEEDED lisinopril 10 mg tablet 10 mg PO DAILY Label Comments: TAKE 1 TABLET BY MOUTH ONCE DAILY Eliquis 5 mg tablet 5 mg PO BID Follow up/Referrals: Amaya Jackson ARNP [Primary Care Provider] - Diet/Activity/Treatments Activity: as tolerated Skin/Wound/Dressing Care Skin care: keep clean and dry Report to your healthcare provider any signs of infection, such as:: chills, fever, night sweats, increased pain, unusual drainage and unusual redness Dressing: keep clean Visit Report/Discharge Packet Instructions: DI for Wound Infection, DI for Diabetic Ketoacidosis, How to Get Rid of Bed Bugs, DI for Bed Bug Bites Discharge Data Primary Care Provider: Amaya Jackson Quality VTE Deep Vein Thrombosis/Pulmonary Embolism Present on Admission: No
--- NOTE | 2022-06-22 17:44 | PC.NURSE ---
dressed wound, d/c instructions given, all questions answered, patient collected all belongings, given pants for d/c and taxi voucher.
[2022-06-23 16:38] LABS: HIV 1 & 2 Ab/Ag 4th Gen Combo NEGATIVE (NEGATIVE)
== END 2022-06-22 18:27 | disposition home or self-care (01) | DRG 642 ==
LOC: ED 13:35 → ICU 06-21 08:59 → AC 01-09 08:37 → ICU 01-09 08:37
PROVIDERS: Internal Medicine; Admitting Provider Student in an Organized Health Care Education/Training Program; Emergency Provider Emergency Medicine; PCP Nurse Practitioner; Referring Provider Emergency Medicine; Visit Provider Student in an Organized Health Care Education/Training Program
DX: E88.89 Other specified metabolic disorders (principal); E87.21 Acute metabolic acidosis; R19.7 Diarrhea, unspecified; E86.0 Dehydration; E83.42 Hypomagnesemia; R21 Rash and other nonspecific skin eruption; E10.65 Type 1 diabetes mellitus with hyperglycemia; I16.0 Hypertensive urgency; E78.5 Hyperlipidemia, unspecified; I10 Essential (primary) hypertension; Z86.73 Personal history of transient ischemic attack (TIA), and cerebral infarction without residual deficits; Z95.5 Presence of coronary angioplasty implant and graft; Z87.891 Personal history of nicotine dependence; Z20.822 Contact with and (suspected) exposure to COVID-19
CPT/HCPCS: 36415; 36600; 71045; 74177; 80048; 80053; 81001; 82009; 82805; 82962; 83036; 83605; 83690; 83735; 83880; 84145; 84443; 84484; 85025; 87040; 87169; 87389; 87633; 87797; 93005; 96365; 96366; 96367; 96368; 96375; 96376; 99284; G0378; J1815; J2405; J2543; J2765; J3475; Q9967

== ENCOUNTER 2023-03-13 19:13 | Emergency (ER) | payer OTHER, MEDICAID, SELFPAY ==
[2022-06-20 16:48] VITALS: BMI 36.2
[2023-03-13 19:30] VITALS: BP 163/95; PULSE 88; RESP 18; TEMP 36.7; O2SAT 97; BMI 27.8
--- NOTE | 2023-03-13 19:34 | ED.GENADULT ---
HPI - General Adult General Chief complaint: Diabetic Problem Stated complaint: diabetic issues Time Seen by Provider: 03/13/23 19:20 History of Present Illness HPI narrative: 62-year-old male former smoker with history of hypertension, hyperlipidemia and diabetes presents by EMS for evaluation of diabetic issues. He states that he had recently been seen and evaluated at [facility] and had his medications refilled and refills strips for his glucometer sent to his pharmacy. He states it for the past few days there have been issues getting the glucometer strips and they apparently had been ordered for the wrong device. He became increasingly frustrated after multiple visits to the pharmacy that he just stopped taking his medications 2 or 3 days ago. He is in the process of looking for a new doctor. He denies dizziness, weakness or lightheadedness. Denies any blurred vision or trouble with speech. He denies chest pain or shortness of breath. He denies nausea, vomiting or diarrhea. EMS noted blood sugar in the Related Data Home Medications Medication Instructions Recorded Confirmed apixaban 5 mg tablet (Eliquis) 5 mg PO BID 06/20/22 06/20/22 atorvastatin 80 mg tablet 80 mg PO DAILY 06/20/22 06/20/22 insulin detemir U-100 100 unit/mL 40 unit SUBCUT BID 06/20/22 06/20/22 subcutaneous solution (Levemir U-100 Insulin) lisinopril 10 mg tablet 10 mg PO DAILY 06/20/22 06/20/22 pantoprazole 40 mg tablet,delayed 40 mg PO DAILY 06/20/22 06/20/22 release Allergies Allergy/AdvReac Type Severity Reaction Status Date / Time fentanyl AdvReac Verified 02/08/22 11:13 hydrocodone AdvReac Verified 02/08/22 11:13 Review of Systems Review of Systems Narrative: GENERAL: Denies chills, fatigue, malaise, fever, sweats. HEENT: Denies sinus pain, ear pain, sore throat, difficulty swallowing, dizziness. RESPIRATORY: Denies dyspnea, cough, wheezing, hemoptysis, sputum. CARDIOVASCULAR: Denies chest pain, palpitations, orthopnea, edema, GASTROINTESTINAL: Denies nausea, vomiting, abdominal pain, diarrhea, constipation, melena. : Denies dysuria, frequency, incontinence, hematuria, urinary retention. MUSCULOSKELETAL: denies weakness, joint pain, or bony pain SKIN: Denies rash, skin lesions, or other NEUROLOGIC: Denies weakness, headache, numbness, change in speech, confusion, seizures, incoordination. PSYCHIATRIC: No concerning psychosocial issues. 12 point review of systems is negative except for those stated above Patient History Medical History Hyperlipidemia Hypertension Stroke Type 1 diabetes Social History household members: none Smoking Status: Former smoker alcohol intake: current Smoking Status: Former smoker alcohol intake frequency: 0-2 drinks per day Substance Use Type: does not use Exam Narrative Exam Narrative: GENERAL: [62] year old patient appears stated age. Well-developed patient, in mild distress. HEAD: Atraumatic. Normocephalic. EYES: Pupils equal round and reactive. Extraocular motions intact. No scleral icterus. No injection or drainage. ENT: Nose without bleeding, purulent drainage. Throat without erythema, tonsillar hypertrophy or exudate. Airway patent. NECK: Trachea midline. Non tender CARDIOVASCULAR: Regular rate and rhythm without murmurs, gallops, or rubs. RESPIRATORY: Clear to auscultation. Breath sounds equal bilaterally. No wheezes, rales, or rhonchi. GASTROINTESTINAL: Abdomen soft, non-tender, nondistended. EXTREMITIES: No edema or joint tenderness. BACK: Nontender without deformity or crepitance. No flank tenderness. NEURO: AOx3. SKIN: No rash or erythema of visible areas Initial Vital Signs Initial Vital Signs: Vital Signs Temperature 98.1 F 03/13/23 19:30 Pulse Rate 88 03/13/23 19:30 Respiratory Rate 18 03/13/23 19:30 Blood Pressure 163/95 H 03/13/23 19:30 Pulse Oximetry 97 03/13/23 19:30 Oxygen Delivery Method Room Air 03/13/23 19:30 Course Orders Ordered: ED Orders 03/13/23 20:25 VBG [Venous Blood Gas] Stat 03/13/23 20:36 Complete Blood Count AUTO DIFF Stat Comprehensive Metabolic Panel Stat Lipase Stat Magnesium Stat Discontinued Medications Sodium Chloride (Normal Saline 0.9%) 1,000 mls @ 1,000 mls/hr IV BOLUS ONE Stop: 03/13/23 21:24 Last Infusion: 03/13/23 21:37 Dose: 0 mls/hr Documented By: Admin: 03/13/23 20:29 Dose: 1,000 mls/hr Documented By: AP Ondansetron HCl (Ondansetron 4 Mg/2 Ml Inj) 4 mg IV NOW ONE Stop: 03/13/23 20:31 Last Admin: 03/13/23 20:33 Dose: 4 mg Documented By: JOSE Vital Signs Vital signs: Vital Signs - 8 hr 03/13/23 21:30 03/13/23 21:30 03/13/23 22:00 Pulse Rate 84 Blood Pressure 161/94 H 134/84 Pulse Oximetry 97 03/13/23 22:00 Pulse Rate 92 H Blood Pressure Pulse Oximetry 98 Medical Decision Making Lab Data 03/13/23 20:36 03/13/23 20:36 Labs: Lab Results 03/13/23 03/13/23 Range/Units 20:36 20:36 WBC 9.7 (4.5-11.0) X10^3/uL RBC 5.37 (4.5-5.9) X10^6/uL Hgb 15.7 (13.5-17.5) g/dL Hct 46.2 (41-53) % MCV 86.1 (80-100) fL MCH 29.2 (26-34) PG MCHC 33.9 (30-36) % RDW 13.3 (11.6-14.8) % Plt Count 224 (150-400) X10^3/uL Neut % (Auto) 68.2 (50-75) % Lymph % (Auto) 22.3 L (25-40) % Becker % (Auto) 7.2 (3-14) % Eos % (Auto) 1.2 L (2-4) % Baso % (Auto) 1.1 (0-2) % Neut # (Auto) 6600 (9506-9963) /uL Lymph # (Auto) 2200 (7263-6173) /uL Becker # (Auto) 700 (0-900) /uL Eos # (Auto) 100 (0-450) /uL Baso # (Auto) 100 (0-100) /uL Sodium 133 L (137-145) mmol/L Potassium 4.1 (3.4-5.1) mmol/L Chloride 100 (98-107) mmol/L Carbon Dioxide 27 (22-32) mmol/L BUN 17 (9-20) mg/dL Creatinine 0.67 (0.66-1.25) mg/dL Estimated GFR > 60 (>60) mL/min BUN/Creatinine Ratio 25.4 H (6-22) Glucose 274 H (80-110) mg/dL Calcium 9.4 (8.4-10.2) mg/dL Magnesium 1.6 (1.6-2.3) mg/dL Total Bilirubin 0.7 (0.2-1.3) mg/dL AST 21 (17-59) IU/L ALT 21 (<50) IU/L Alkaline Phosphatase 71 (38-126) U/L Total Protein 7.2 (6.3-8.2) g/dL Albumin 3.9 (3.5-5.0) g/dL Globulin 3.3 (1.7-4.1) g/dL Albumin/Globulin Ratio 1.2 (1.0-2.8) Lipase 49 (23-300) U/L Point of Care Testing Glucose POC 294 Point of care testing: Point of Care Testing Glucose POC 294 MDM Narrative Medical decision making narrative: 62 year old patient presents with elevated blood sugar Multiple etiologies for patient's symptoms considered including, but not limited to: [DKA versus electrolyte abnormality versus other diabetic emergency versus other] Prior Charts reviewed in our EMR Primary Historian: patient Labs reviewed and interpreted by myself: Patient has no leukocytosis, signs of anemia or left shift. Patient is hyperglycemic with improvement after fluids, electrolytes are otherwise well and normal, no evidence of anion gap Patient history and physical exam are reassuring. He is asymptomatic in labs essentially only demonstrating some hyperglycemia. His medications have been refilled and he states that the pharmacy has the test strips that he is looking for. There is no sign of DKA, underlying infection or other significant diagnosis that would require a specific intervention. He is appropriate for discharge Findings and discharge diagnosis discussed with patient/family followed by verbalization of understanding Return precautions discussed with patient/family whom verbalize understanding of diagnosis and plan Discharge Plan Departure Patient Disposition: Home Clinical Impression: Acute hyperglycemia Instructions: DI for Hyperglycemia -- Adult Activity Restrictions/Additional Instructions: *You have been diagnosed with [hyperglycemia and medical noncompliance] *What to do: *Please continue to take your regular medications as directed. [ ] New medication prescriptions sent to your pharmacy: [ ] [ ] New medication written as a paper prescription [ ] No new medications given *Please follow up with your primary care provider in 2-3 days, call for an appointment. Let them know you were seen in the Emergency Department and that we ask that you be seen in follow up. We will electronically transmit a record of today's note if your PCP is in our system *If you do not have a primary care provider please contact the [facility] Resource line at [phone]. They will ask some questions about your medical history and help get you set up with a doctor in the community. *Return to Emergency Department if you should have any new, worsening or concerning symptoms, such as [fever greater than 101 F, shaking chills, worsening pain, persistent vomiting or other bothersome symptoms] Prescriptions: No Action atorvastatin 80 mg tablet 80 mg PO DAILY Patient Comments: TAKE 1 TABLET BY MOUTH ONCE DAILY pantoprazole 40 mg tablet,delayed release (DR/EC) 40 mg PO DAILY Rx Instructions: ran out 3 days ago Levemir U-100 Insulin 100 unit/mL solution 40 unit SUBCUT BID Patient Comments: INJECT 40 UNITS SUBCUTANEOUSLY TWICE DAILY NEEDED lisinopril 10 mg tablet 10 mg PO DAILY Patient Comments: TAKE 1 TABLET BY MOUTH ONCE DAILY Eliquis 5 mg tablet 5 mg PO BID Referrals: Amaya Jackson ARNP [Primary Care Provider] - Stand Alone Forms: Patient Portal/API
[2023-03-13] MEDS: SODIUM CHLORIDE 0.9% 1,000 ML 1000 ML IV (20:29)
[2023-03-13] MEDS: ONDANSETRON 4 MG/2 ML INJ IV (20:33)
[2023-03-13 20:40] VITALS: BP 154/84; PULSE 76; RESP 18; O2SAT 96
[2023-03-13 20:46] LABS: Add Manual Diff / Slide Review NO; Basophils Absolute Auto 100 /uL (0-100); Basophils Percent Auto 1.1 % (0-2); Eosinophils Absolute Auto 100 /uL (0-450); Eosinophils Percent Auto 1.2 % (2-4); Hematocrit 46.2 % (41-53); Hemoglobin 15.7 g/dL (13.5-17.5); Lymphocytes Absolute Auto 2200 /uL (1100-4500); Lymphocytes Percent Auto 22.3 % (25-40); Mean Corpuscular HGB Conc 33.9 % (30-36); Mean Corpuscular Hemoglobin 29.2 PG (26-34); Mean Corpuscular Volume 86.1 fL (80-100); Monocytes Absolute Auto 700 /uL (0-900); Monocytes Percent Auto 7.2 % (3-14); Neutrophils Absolute Auto 6600 /uL (1500-7000); Neutrophils Percent Auto 68.2 % (50-75); Platelet Count 224 X10^3/uL (150-400); Red Blood Cell Count 5.37 X10^6/uL (4.5-5.9); Red Cell Distribution Width 13.3 % (11.6-14.8); White Blood Cell Count 9.7 X10^3/uL (4.5-11.0)
[2023-03-13 20:55] LABS: Alanine Aminotransferase 21 IU/L (<50); Albumin 3.9 g/dL (3.5-5.0); Albumin Globulin Ratio 1.2 (1.0-2.8); Alkaline Phosphatase 71 U/L (38-126); Aspartate Aminotransferase 21 IU/L (17-59); BUN Creatinine Ratio 25.4 (6-22); Bilirubin Total 0.7 mg/dL (0.2-1.3); Blood Urea Nitrogen 17 mg/dL (9-20); Calcium 9.4 mg/dL (8.4-10.2); Carbon Dioxide 27 mmol/L (22-32); Chloride 100 mmol/L (98-107); Estimated Glomerular Filt Rate > 60 mL/min (>60); Globulin 3.3 g/dL (1.7-4.1); Glucose 274 mg/dL (80-110); HEMOLYSIS < 15 (0-50); Lipase 49 U/L (23-300); Magnesium 1.6 mg/dL (1.6-2.3); Potassium 4.1 mmol/L (3.4-5.1); Sodium 133 mmol/L (137-145); Total Protein 7.2 g/dL (6.3-8.2)
[2023-03-13 21:00] VITALS: BP 160/88; PULSE 76; O2SAT 96
[2023-03-13 21:30] VITALS: BP 161/94; PULSE 84; O2SAT 97
[2023-03-13 22:00] VITALS: BP 134/84; PULSE 92; O2SAT 98
== END 2023-03-13 23:03 | disposition home or self-care (01) ==
PROVIDERS: Emergency Provider Emergency Medicine; PCP Nurse Practitioner
DX: E11.65 Type 2 diabetes mellitus with hyperglycemia (principal)
CPT/HCPCS: 36415; 80053; 82962; 83690; 83735; 85025; 96361; 96374; 99284; J2405

== ENCOUNTER 2024-03-29 16:13 | Inpatient (IN) | payer OTHER, MEDICAID, SELFPAY ==
[2022-06-20 16:48] VITALS: BMI 36.2
[2024-03-29] VITALS (16 sets, daily range): BP systolic 112–178; BP diastolic 68–102; PULSE 103–130; RESP 18–26; TEMP 36.6–36.9; O2SAT 92–100
--- NOTE | 2024-03-29 16:45 | DI.RAD.S_ITS ---
PROCEDURE: XR CHEST 1V INDICATIONS: Hemoptysis TECHNIQUE: One view of the chest was acquired. COMPARISON: [facility], CR, XR CHEST 1V, 06/20/2022, 11:22. FINDINGS: Surgical changes and devices: None. Lungs and pleura: Lungs are clear. No pleural effusions or pneumothorax. Mediastinum: Mediastinal contours appear normal. Heart size is normal. Bones and chest wall: No suspicious bony lesions. Overlying soft tissues appear unremarkable. IMPRESSION: No acute cardiopulmonary abnormality is seen. Dictated by: Rolanda Cr M.D. on 03/29/2024 at 17:09 Approved by: Rolanda Cr M.D. on 03/29/2024 at 17:12
--- NOTE | 2024-03-29 16:52 | EKG_ITS ---
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
[2024-03-29 17:02] LABS: Base Excess VBG -16.3 mmol/L (0-4); Fractionated Inspired Oxygen 21; HCO3 VBG 9 mmol/L (24-28); Oxygen Saturation VBG 72 % (70-75); PCO2 VBG 23.5 mmHg (45-50); PO2 VBG 45 mmHg (35-45); Total CO2 VBG 9 mmol/L (24-29); pH VBG 7.21 (7.33-7.43)
[2024-03-29 17:03] LABS: INR 0.8 (0.9-1.3); Prothrombin Time 9.6 SECONDS (9.4-12.5)
[2024-03-29 17:05] LABS: Alanine Aminotransferase 33 IU/L (<50); Albumin 4.6 g/dL (3.5-5.0); Albumin Globulin Ratio 1.3 (1.0-2.8); Alkaline Phosphatase 113 U/L (38-126); Aspartate Aminotransferase 22 IU/L (17-59); BUN Creatinine Ratio 49.3 (6-22); Bilirubin Total 0.9 mg/dL (0.2-1.3); Blood Urea Nitrogen 67 mg/dL (9-20); Calcium 9.6 mg/dL (8.4-10.2); Chloride 96 mmol/L (98-107); Estimated Glomerular Filt Rate 58 mL/min (>60); Globulin 3.5 g/dL (1.7-4.1); Lipase 124 U/L (23-300); Sodium 129 mmol/L (137-145); Total Protein 8.1 g/dL (6.3-8.2)
[2024-03-29 17:06] LABS: Creatine Kinase 131 U/L (55-170); Lactate (Lactic Acid) 1.6 mmol/L (0.7-2.1); PTT Partial Thromboplastin Tim 31 SECONDS (25.1-36.5)
[2024-03-29 17:08] LABS: Hemoglobin 16.1 g/dL (13.5-17.5); Mean Corpuscular HGB Conc 31.5 % (30-36); Mean Corpuscular Hemoglobin 28.4 PG (26-34); Platelet Count 322 X10^3/uL (150-400); Red Blood Cell Count 5.67 X10^6/uL (4.5-5.9); Red Cell Distribution Width 13.8 % (11.6-14.8)
[2024-03-29 17:11] LABS: Add Manual Diff / Slide Review YES; White Blood Cell Count 30.3 X10^3/uL (4.5-11.0)
[2024-03-29] MEDS: SODIUM CHLORIDE 0.9% 1,000 ML 1000 ML IV (17:11)
[2024-03-29] MEDS: ONDANSETRON 4 MG/2 ML INJ IV (17:11)
[2024-03-29 17:12] LABS: HEMOLYSIS 26 (0-50)
[2024-03-29 17:18] LABS: NT-proBNP (BNP-Adult 18+) 391 pg/mL (<125); Troponin I 0.013 ng/mL (0.01-0.034)
[2024-03-29 17:23] LABS: Potassium 5.6 mmol/L (3.4-5.1)
[2024-03-29 17:25] LABS: Carbon Dioxide < 5 mmol/L (22-32); Glucose 745 mg/dL (80-110)
--- NOTE | 2024-03-29 17:27 | ED_ITS ---
HPI - Weakness General Chief complaint: Abdominal Pain Stated complaint: WKN/Dizzy Time Seen by Provider: 03/29/24 16:44 Source: patient and EMS Mode of arrival: EMS History of Present Illness HPI Narrative: Patient is a 63-year-old history of insulin-dependent diabetes hypertension hyperlipidemia presenting today with shakiness shaking and weakness. He reports that last 4 days he has been so shaky he has been unable to take his insulin he has not sure that he has had fever or chills. He is some mild upper abdominal pain. No chest pain or palpitations. He feels weak and dizzy. He is taking Eliquis for prior stroke. He denies any chest pain or cough. No nausea or vomiting. He initially reported to nursing staff that he did cause some hemoptysis however he denies productive cough at this time. Related Data Home Medications Medication Instructions Recorded Confirmed apixaban 5 mg tablet (Eliquis) 5 mg PO BID 06/20/22 06/20/22 atorvastatin 80 mg tablet 80 mg PO DAILY 06/20/22 06/20/22 insulin detemir U-100 100 unit/mL 40 unit SUBCUT BID 06/20/22 06/20/22 subcutaneous solution (Levemir U-100 Insulin) lisinopril 10 mg tablet 10 mg PO DAILY 06/20/22 06/20/22 pantoprazole 40 mg tablet,delayed 40 mg PO DAILY 06/20/22 06/20/22 release Allergies Allergy/AdvReac Type Severity Reaction Status Date / Time fentanyl AdvReac Verified 02/08/22 11:13 hydrocodone AdvReac Verified 02/08/22 11:13 Patient History Medical History Stroke Hyperlipidemia Hypertension Type 1 diabetes Social History household members: none Smoking Status: Former smoker alcohol intake: current Smoking Status: Former smoker alcohol intake frequency: 0-2 drinks per day Substance Use Type: marijuana Exam Initial Vital Signs Initial Vital Signs: Vital Signs Temperature 97.8 F 03/29/24 16:05 Pulse Rate 109 H 03/29/24 16:05 Respiratory Rate 26 H 03/29/24 16:05 Blood Pressure 145/83 H 03/29/24 16:05 Pulse Oximetry 100 03/29/24 16:05 Oxygen Delivery Method Room Air 03/29/24 16:05 GENERAL: Weak alert 63-year-old, slightly pale HEENT: Head atraumatic,EOMI, pupils reactive, face symmetric, moist mucous membranes CARDIOVASCULAR: Regular rate and rhythm without murmurs, rubs or gallops. RESPIRATORY: Breath sounds equal bilaterally, no wheezes rales or rhonchi. ABDOMEN: Soft, mild epigastric tenderness no guarding or rebound negative Montes's sign EXTREMITIES: Normal range of motion, no clubbing or edema. Neurovascularly intact NEUROLOGICAL: Alert and oriented x4.Normal gait and speech. No obvious tremor SKIN: Warm, dry, no laceration, no petechiae, no rashes or lesions. Course Orders Ordered: ED Orders 03/29/24 16:30 EKG-12 Lead Stat 03/29/24 16:34 Complete Blood Count AUTO DIFF Stat Comprehensive Metabolic Panel Stat Lipase Stat 03/29/24 16:35 BNP [NT-proBNP (BNP-Adult 18+)] Stat Ketones (Beta-Hydroxybutyrate) Stat Lactate (Lactic Acid) Stat PT [Prothrombin Time INR] Stat PTT Partial Thromboplastin Carl Stat Troponin & CK Cardiac Panel Stat 03/29/24 16:45 Chest [XR chest 1V] Stat Venous Blood Gas Stat 03/29/24 17:18 Blood Culture Stat 03/29/24 17:25 Respiratory Panel (Film Array) Stat Acetaminophen (Acetaminophen 325 Mg Tablet) 650 mg PO Q6H PRN PRN Reason: Fever/Mild Pain (1-3) Apixaban (Apixaban 5 Mg Tablet) 5 mg PO BID ISIS Atorvastatin Calcium (Atorvastatin 20 Mg Tablet) 80 mg PO DAILY ISIS Hydromorphone HCl (Hydromorphone 0.5 Mg Inj) 0.5 mg IV Q2H PRN PRN Reason: Pain, Severe (7-10) INSULIN DRIP PREMIX (Myxredlin Drip Premix) 100 unit in 100 mls @ 10.886 mls/hr IV TITRATE ISIS; Protocol Last Titration: 03/29/24 19:21 Dose: 0.1 unit/kg/hr, 10.9 mls/hr Documented By: RIDGE Co-signed By: KASI Admin: 03/29/24 17:46 Dose: 0.1 unit/kg/hr, 10.9 mls/hr Documented By: RIDGE Co-signed By: MARCOS Sodium Chloride (Normal Saline 0.9%) 2,328 mls @ 776 mls/hr 30 ml/kg infuse over 3 hr (2328 ml) IV NOW ONE Stop: 03/29/24 21:20 Last Infusion: 03/29/24 19:22 Dose: 776 mls/hr Documented By: Admin: 03/29/24 18:48 Dose: 776 mls/hr Documented By: RIDGE Naloxone HCl (Naloxone 0.4 Mg/Ml Vial) 0.2 mg IV Q2MIN PRN PRN Reason: Opiate Reversal Ondansetron HCl (Ondansetron 4 Mg Odt) 4 mg PO NOW PRN PRN Reason: Nausea And Vomiting Oxycodone HCl (Oxycodone Ir 5 Mg Tablet) 5 mg PO Q3H PRN PRN Reason: Pain, Moderate (4-6) Pantoprazole Sodium (Pantoprazole Dr 40 Mg Tablet) 40 mg PO DAILY ISIS Discontinued Medications Sodium Chloride (Normal Saline 0.9%) 1,000 mls @ 1,000 mls/hr IV BOLUS ONE Stop: 03/29/24 17:45 Last Infusion: 03/29/24 17:29 Dose: Infused Documented By: Admin: 03/29/24 17:11 Dose: 1,000 mls/hr Documented By: MARK Piperacillin Sod/Tazobactam (Sod 4.5 gm/ Sodium Chloride) 100 mls @ 200 mls/hr IV NOW ONE Stop: 03/29/24 17:20 Last Infusion: 03/29/24 18:09 Dose: Infused Documented By: Admin: 03/29/24 17:36 Dose: 200 mls/hr Documented By: RIDGE Ondansetron HCl (Ondansetron 4 Mg/2 Ml Inj) 4 mg IV NOW PRN PRN Reason: Nausea And Vomiting Last Admin: 03/29/24 17:11 Dose: 4 mg Documented By: MARK Prochlorperazine (Prochlorperazine 10 Mg/2 Ml Vial) 10 mg IV NOW ONE Stop: 03/29/24 17:20 Last Admin: 03/29/24 17:46 Dose: 10 mg Documented By: RIDGE Vital Signs Vital signs: Vital Signs - 8 hr 03/29/24 16:05 03/29/24 16:24 03/29/24 16:24 Temperature 97.8 F Pulse Rate 109 H 109 H Respiratory Rate 26 H 25 H Blood Pressure 145/83 H 145/83 H Pulse Oximetry 100 100 Oxygen Delivery Method Room Air 03/29/24 16:30 03/29/24 16:33 03/29/24 16:33 Temperature Pulse Rate 110 H 111 H Respiratory Rate 26 H 22 Blood Pressure 138/81 Pulse Oximetry 100 100 Oxygen Delivery Method 03/29/24 17:00 03/29/24 17:04 03/29/24 17:04 Temperature Pulse Rate 114 H 119 H Respiratory Rate 25 H 24 Blood Pressure 140/92 H Pulse Oximetry 100 100 Oxygen Delivery Method 03/29/24 17:30 03/29/24 17:30 03/29/24 18:00 Temperature Pulse Rate 111 H Respiratory Rate 21 Blood Pressure 178/102 H 121/68 Pulse Oximetry 100 Oxygen Delivery Method 03/29/24 18:00 Temperature Pulse Rate 113 H Respiratory Rate 26 H Blood Pressure Pulse Oximetry 100 Oxygen Delivery Method MDM - Weakness Lab Data 03/29/24 16:34 03/29/24 16:34 Labs: Lab Results 03/29/24 03/29/24 03/29/24 Range/Units 16:34 16:35 16:45 WBC 30.3 H* (4.5-11.0) X10^3/uL RBC 5.67 (4.5-5.9) X10^6/uL Hgb 16.1 (13.5-17.5) g/dL Hct 51.0 (41-53) % MCV 90.0 (80-100) fL MCH 28.4 (26-34) PG MCHC 31.5 (30-36) % RDW 13.8 (11.6-14.8) % Plt Count 322 (150-400) X10^3/uL Neut % (Auto) Not Reportable Lymph % (Auto) Not Reportable [place] % (Auto) Not Reportable Eos % (Auto) Not Reportable Baso % (Auto) Not Reportable Lymph # (Auto) Not Reportable [place] # (Auto) Not Reportable Baso # (Auto) Not Reportable Total Counted 100 Seg Neutrophils % 94.0 H (38-70) % Lymphocytes % (Manual) 1.0 L (25-45) % Monocytes % (Manual) 5.0 (2-11) % Neutrophils # (Manual) 23945 H (6564-3942) /uL RBC Morphology Normal morphology PT 9.6 (9.4-12.5) SECONDS INR 0.8 L (0.9-1.3) APTT 31 (25.1-36.5) SECONDS VBG pH 7.21 L (7.33-7.43) VBG pCO2 23.5 L (45-50) mmHg VBG pO2 45 (35-45) mmHg VBG HCO3 9 L (24-28) mmol/L VBG Total CO2 9 L (24-29) mmol/L VBG O2 Saturation 72 (70-75) % VBG Base Excess -16.3 L (0-4) mmol/L FiO2 21 Sodium 129 L (137-145) mmol/L Potassium 5.6 H (3.4-5.1) mmol/L Chloride 96 L (98-107) mmol/L Carbon Dioxide < 5 L* (22-32) mmol/L BUN 67 H (9-20) mg/dL Creatinine 1.36 H (0.66-1.25) mg/dL Estimated GFR 58 L (>60) mL/min BUN/Creatinine Ratio 49.3 H (6-22) Glucose 745 H* (80-110) mg/dL Lactate 1.6 (0.7-2.1) mmol/L Calcium 9.6 (8.4-10.2) mg/dL Total Bilirubin 0.9 (0.2-1.3) mg/dL AST 22 (17-59) IU/L ALT 33 (<50) IU/L Alkaline Phosphatase 113 (38-126) U/L Total Creatine Kinase 131 (55-170) U/L Troponin I 0.013 (0.01-0.034) ng/mL NT-Pro-B Natriuret Pep 391 H (<125) pg/mL Total Protein 8.1 (6.3-8.2) g/dL Albumin 4.6 (3.5-5.0) g/dL Globulin 3.5 (1.7-4.1) g/dL Albumin/Globulin Ratio 1.3 (1.0-2.8) Lipase 124 (23-300) U/L Ketones 11.1 H (<0.27) mmol/L Chlamy pneumoniae PCR (Not Detect) Adenovirus (PCR) (Not Detect) B.parapertussis DNA PCR (Not Detecte) Coronavirus OC43 (PCR) (Not Detect) Coronavirus HKU1 (PCR) (Not Detect) Coronavirus 229E (PCR) (Not Detect) SARS-CoV-2 (PCR) (Not Detecte) Coronavirus NL63 (PCR) (Not Detect) Human Metapneumovir PCR (Not Detect) Influenza Type A (PCR) (Not Detect) Influenza Type B (PCR) (Not Detect) M. pneumoniae (PCR) (Not Detect) Parainfluenza 1 (PCR) (Not Detect) Parainfluenza 2 (PCR) (Not Detect) Parainfluenza 3 (PCR) (Not Detect) Parainfluenza 4 (PCR) (Not Detect) RSV (PCR) (Not Detect) Entero/Rhino (PCR) (Not Detect) 03/29/24 Range/Units 17:25 WBC (4.5-11.0) X10^3/uL RBC (4.5-5.9) X10^6/uL Hgb (13.5-17.5) g/dL Hct (41-53) % MCV (80-100) fL MCH (26-34) PG MCHC (30-36) % RDW (11.6-14.8) % Plt Count (150-400) X10^3/uL Neut % (Auto) Lymph % (Auto) [place] % (Auto) Eos % (Auto) Baso % (Auto) Lymph # (Auto) [place] # (Auto) Baso # (Auto) Total Counted Seg Neutrophils % (38-70) % Lymphocytes % (Manual) (25-45) % Monocytes % (Manual) (2-11) % Neutrophils # (Manual) (6842-6388) /uL RBC Morphology PT (9.4-12.5) SECONDS INR (0.9-1.3) APTT (25.1-36.5) SECONDS VBG pH (7.33-7.43) VBG pCO2 (45-50) mmHg VBG pO2 (35-45) mmHg VBG HCO3 (24-28) mmol/L VBG Total CO2 (24-29) mmol/L VBG O2 Saturation (70-75) % VBG Base Excess (0-4) mmol/L FiO2 Sodium (137-145) mmol/L Potassium (3.4-5.1) mmol/L Chloride (98-107) mmol/L Carbon Dioxide (22-32) mmol/L BUN (9-20) mg/dL Creatinine (0.66-1.25) mg/dL Estimated GFR (>60) mL/min BUN/Creatinine Ratio (6-22) Glucose (80-110) mg/dL Lactate (0.7-2.1) mmol/L Calcium (8.4-10.2) mg/dL Total Bilirubin (0.2-1.3) mg/dL AST (17-59) IU/L ALT (<50) IU/L Alkaline Phosphatase (38-126) U/L Total Creatine Kinase (55-170) U/L Troponin I (0.01-0.034) ng/mL NT-Pro-B Natriuret Pep (<125) pg/mL Total Protein (6.3-8.2) g/dL Albumin (3.5-5.0) g/dL Globulin (1.7-4.1) g/dL Albumin/Globulin Ratio (1.0-2.8) Lipase (23-300) U/L Ketones (<0.27) mmol/L Chlamy pneumoniae PCR Not detected (Not Detect) Adenovirus (PCR) Not detected (Not Detect) B.parapertussis DNA PCR Not detected (Not Detecte) Coronavirus OC43 (PCR) Not detected (Not Detect) Coronavirus HKU1 (PCR) Not detected (Not Detect) Coronavirus 229E (PCR) Not detected (Not Detect) SARS-CoV-2 (PCR) Not detected (Not Detecte) Coronavirus NL63 (PCR) Not detected (Not Detect) Human Metapneumovir PCR Not detected (Not Detect) Influenza Type A (PCR) Not detected (Not Detect) Influenza Type B (PCR) Not detected (Not Detect) M. pneumoniae (PCR) Not detected (Not Detect) Parainfluenza 1 (PCR) Not detected (Not Detect) Parainfluenza 2 (PCR) Not detected (Not Detect) Parainfluenza 3 (PCR) Not detected (Not Detect) Parainfluenza 4 (PCR) Not detected (Not Detect) RSV (PCR) Not detected (Not Detect) Entero/Rhino (PCR) Not detected (Not Detect) Point of Care Testing Glucose POC 500 Imaging Data Chest x-ray: Radiologist Impression: PROCEDURE: XR CHEST 1V INDICATIONS: Hemoptysis TECHNIQUE: One view of the chest was acquired. COMPARISON: [facility], CR, XR CHEST 1V, 06/20/2022, 11:22. FINDINGS: Surgical changes and devices: None. Lungs and pleura: Lungs are clear. No pleural effusions or pneumothorax. Mediastinum: Mediastinal contours appear normal. Heart size is normal. Bones and chest wall: No suspicious bony lesions. Overlying soft tissues appear unremarkable. IMPRESSION: No acute cardiopulmonary abnormality is seen. Dictated by: Rolanda Cr M.D. on 03/29/2024 at 17:09 Approved by: Rolanda Cr M.D. on 03/29/2024 at 17:12 CT scan - abdomen/pelvis: Radiologist Impression: PROCEDURE: CT ABDOMEN PELVIS W CON INDICATIONS: upper ab pain , sepsis TECHNIQUE: After the administration of intravenous contrast, axial sections acquired from the lung bases to the pubic symphysis. Coronal and sagittal reformats were performed. For radiation dose reduction, the following was used: automated exposure control, adjustment of mA and/or kV according to patient size. COMPARISON: [facility], CT, CT ABDOMEN PELVIS W CON, 06/20/2022, 13:47. FINDINGS: Image quality: Diagnostic. Lower Chest: No significant findings. ABDOMEN: Liver: No solid mass. Gallbladder: No radiopaque gallstones or wall thickening. Biliary ducts: No biliary dilation. Pancreas: No ductal dilation. Spleen: Size is within normal limits. Adrenal Glands: No adrenal nodules. Kidneys and Ureters: No hydronephrosis. No solid mass. No complex renal cystic lesion which requires follow up. Stomach and Bowel: Circumferential wall thickening is seen in the lower soft focus and likely the stomach and proximal duodenum. The remainder of the small bowel is unremarkable. Moderate colonic stool. Normal appendix. Peritoneum: No abnormal intraperitoneal fluid. No free air. Ventral Wall: No significant ventral hernia. Abdominal Nodes: No retroperitoneal or mesenteric adenopathy by size criteria. Vessels: Infrarenal abdominal aortic aneurysm measures up to 3.6 x 3.7 cm in diameter. PELVIS: Pelvic Organs: Unremarkable. Bladder: Bladder is moderately distended. Pelvic Nodes: No enlarged lymph nodes. Miscellaneous: Small fat containing right inguinal hernia. Bones: No aggressive osseous abnormality. IMPRESSION: 1. Mild bowel wall thickening involving the esophagus, stomach, and proximal duodenum is suspicious for an upper GI tract infectious or inflammatory process. 2. Stable 3.7 cm infrarenal abdominal aortic aneurysm. Approved by: Jb Christine M.D. on 03/29/2024 at 19:07 ECG Data Attestation: I personally reviewed and interpreted this ECG as follows: Interpretation: Normal sinus rhythm, rate 111 AL interval 144 QRS 90 QTC 435 no changes or T- wave inversions MDM Narrative Medical decision making narrative: MDM CC: Weakness dizziness abdominal Complicating co-morbidities: Insulin-dependent diabetes CVA on Eliquis Corroborating data: [ ] Data collected from: [ ] Medical records reviewed: Previous admissions for similar Differential considered: Sepsis DKA alcohol withdrawal, CLL, Exam documented above, pertinent findings include: Mildly pale weak tachycardic he does have some mild epigastric pain with negative Montes's sign Lab Test results independently reviewed as above. Pertinent findings: WBC 30.3, lactate 1.6, sodium 129, potassium 5.6, chloride 96, bicarb less than 5, BUN 67, creatinine 1.36 baseline looks like 0.6 , troponin negative CPK 131, BNP 391 pH 7.2, anion gap 32, ketones 11.1, glucose 745 Respiratory panel negative Independently reviewed EKG as above sinus tachycardia no ischemia Imaging studies independently reviewed: Chest x-ray no evidence of infection, CT abdomen pelvis does show some thickening of the vagus maybe causing his epigastric pain no evidence of cholelithiasis Consultations: Dr. Gibbons accepts, in ED dizzy and evaluate patient Treatments: IV fluids, insulin drip, antibiotics Re-evaluations: Feeling better with some fluids Discussion: Patient is 63-year-old male history of insulin dependent diabetes presenting today with not feeling well. He is found to have DKA with a pH of 7.2 an anion gap of 32 and glucose of 745. He was started on insulin DKA protocol. He is found to have significant leukocytosis of 30 as well. He has a normal lactate blood pressure and vitals are stable no evidence of severe sepsis. He is empirically treated with antibiotics. He is some mild upper abdominal pain. No evidence of cholelithiasis cholecystitis or ascending cholangitis. He has no other intra-abdominal pathology says it thickening of the esophagus. Source of significant leukocytosis is yet to be found Critical Care Time Critical Care Time Critical Care Time: Yes Total Critical Care Time: 35 Attestation: The high probability of a clinically significant, sudden or life threatening deterioration of the [cardiovascular] system(s) required my full and direct attention, intervention and personal management. The aggregate critical care time was 35 minutes. This time is in addition to time spent performing reported procedures but includes the following: [x] Data Review and interpretation [x] Patient assessment and monitoring of vital signs [x] Documentation [x] Medication orders and management Discharge Plan Departure Patient Disposition: Admitted As Inpatient Clinical Impression: DKA (diabetic ketoacidosis), Leukocytosis Admit Date/Time: 03/29/24 18:07 Admit Provider: Kody Gibbons
[2024-03-29 17:31] LABS: Neutrophils Absolute Manual 28482 /uL (3000-5900); RBC Morphology Normal Morphology; Total Cells Counted 100
[2024-03-29] MEDS: PIPERACILLIN/TAZO 4.5 GM in SODIUM CHLORIDE 0.9% 100 ML IV (17:36)
[2024-03-29] MEDS: PROCHLORPERAZINE 10 MG/2 ML VIAL IV (17:46)
[2024-03-29] MEDS: INSULIN DRIP PREMIX 100 UNIT/100 ML PLAST..BAG 10.9 UNIT IV (17:46)
--- NOTE | 2024-03-29 18:15 | DI.CT.S_ITS ---
PROCEDURE: CT ABDOMEN PELVIS W CON INDICATIONS: upper ab pain , sepsis TECHNIQUE: After the administration of intravenous contrast, axial sections acquired from the lung bases to the pubic symphysis. Coronal and sagittal reformats were performed. For radiation dose reduction, the following was used: automated exposure control, adjustment of mA and/or kV according to patient size. COMPARISON: [facility], CT, CT ABDOMEN PELVIS W CON, 06/20/2022, 13:47. FINDINGS: Image quality: Diagnostic. Lower Chest: No significant findings. ABDOMEN: Liver: No solid mass. Gallbladder: No radiopaque gallstones or wall thickening. Biliary ducts: No biliary dilation. Pancreas: No ductal dilation. Spleen: Size is within normal limits. Adrenal Glands: No adrenal nodules. Kidneys and Ureters: No hydronephrosis. No solid mass. No complex renal cystic lesion which requires follow up. Stomach and Bowel: Circumferential wall thickening is seen in the lower soft focus and likely the stomach and proximal duodenum. The remainder of the small bowel is unremarkable. Moderate colonic stool. Normal appendix. Peritoneum: No abnormal intraperitoneal fluid. No free air. Ventral Wall: No significant ventral hernia. Abdominal Nodes: No retroperitoneal or mesenteric adenopathy by size criteria. Vessels: Infrarenal abdominal aortic aneurysm measures up to 3.6 x 3.7 cm in diameter. PELVIS: Pelvic Organs: Unremarkable. Bladder: Bladder is moderately distended. Pelvic Nodes: No enlarged lymph nodes. Miscellaneous: Small fat containing right inguinal hernia. Bones: No aggressive osseous abnormality. IMPRESSION: 1. Mild bowel wall thickening involving the esophagus, stomach, and proximal duodenum is suspicious for an upper GI tract infectious or inflammatory process. 2. Stable 3.7 cm infrarenal abdominal aortic aneurysm. Approved by: Jb Christine M.D. on 03/29/2024 at 19:07
[2024-03-29 18:23] LABS: Ketones (Beta-Hydroxybutyrate) 11.1 mmol/L (<0.27)
--- NOTE | 2024-03-29 18:24 | P.HP_ITS ---
History of Present Illness History of Present Illness Date Patient Seen: 03/29/24 Time Patient Seen: 18:30 Chief complaint: WKN/Dizzy Narrative: Herve Driver is a 61yo M with PMH of DM1, HTN, HLD, and previous CVA who presents with n/v shaking and chills and found to be in DKA. He stopped taking insulin because he had felt so sick. Labs showed WBC 30, AG of at least 28 with bicab <5, glucose 745. ER provider has ordered CT for further evaluation, Respiratory panel negative. Admitted to the ICU for management of DKA. COUNT INCLUDES THE [facility] Medical History Stroke Hyperlipidemia Hypertension Type 1 diabetes Social History household members: none Smoking Status: Former smoker alcohol intake: current Meds Home Medications and Allergies Home Medications Medication Instructions Recorded Confirmed Type apixaban 5 mg tablet (Eliquis) 5 mg PO BID 06/20/22 06/20/22 History atorvastatin 80 mg tablet 80 mg PO DAILY 06/20/22 06/20/22 History insulin detemir U-100 100 unit/mL 40 unit SUBCUT BID 06/20/22 06/20/22 History subcutaneous solution (Levemir U-100 Insulin) lisinopril 10 mg tablet 10 mg PO DAILY 06/20/22 06/20/22 History pantoprazole 40 mg tablet,delayed 40 mg PO DAILY 06/20/22 06/20/22 History release Allergies Allergy/AdvReac Type Severity Reaction Status Date / Time fentanyl AdvReac Verified 02/08/22 11:13 hydrocodone AdvReac Verified 02/08/22 11:13 Review of Systems Review of Systems Narrative: All other systems reviewed with the patient and are negative unless otherwise stated. Exam Vital Signs (past 8 hours): - 03/29/24 16:05 03/29/24 16:24 03/29/24 16:24 Temperature 97.8 F Pulse Rate 109 H 109 H Respiratory Rate 26 H 25 H Blood Pressure 145/83 H 145/83 H Pulse Oximetry 100 100 Oxygen Delivery Method Room Air 03/29/24 16:30 03/29/24 16:33 03/29/24 16:33 Temperature Pulse Rate 110 H 111 H Respiratory Rate 26 H 22 Blood Pressure 138/81 Pulse Oximetry 100 100 Oxygen Delivery Method 03/29/24 17:00 03/29/24 17:04 03/29/24 17:04 Temperature Pulse Rate 114 H 119 H Respiratory Rate 25 H 24 Blood Pressure 140/92 H Pulse Oximetry 100 100 Oxygen Delivery Method 03/29/24 17:30 03/29/24 17:30 Temperature Pulse Rate 111 H Respiratory Rate 21 Blood Pressure 178/102 H Pulse Oximetry 100 Oxygen Delivery Method Oxygen Delivery Method Room Air Narrative Exam Narrative: GEN: no acute distress HEENT: dry mucous membranes, PERRL NECK: trachea midline, no JVD CV: regular rate and rhythm, no murmurs PULM: clear bilaterally ABD: soft, nontender, nondistended, no organomegaly EXT: warm and well perfused with no edema NEURO: awake, alert, oriented, no focal deficits though he is lethargic. Objective ECG Impression: sinus tachycardia with frequent PVC, old inferior infarct. Labs 03/29/24 16:34 03/29/24 16:34 Labs: Laboratory Results - last 24 hr 03/29/24 03/29/24 03/29/24 16:34 16:35 16:45 WBC 30.3 H* RBC 5.67 Hgb 16.1 Hct 51.0 MCV 90.0 MCH 28.4 MCHC 31.5 RDW 13.8 Plt Count 322 Neut % (Auto) Not Reportable Lymph % (Auto) Not Reportable [place] % (Auto) Not Reportable Eos % (Auto) Not Reportable Baso % (Auto) Not Reportable Lymph # (Auto) Not Reportable [place] # (Auto) Not Reportable Baso # (Auto) Not Reportable Total Counted 100 Seg Neutrophils % 94.0 H Lymphocytes % (Manual) 1.0 L Monocytes % (Manual) 5.0 Neutrophils # (Manual) 72245 H RBC Morphology Normal morphology PT 9.6 INR 0.8 L APTT 31 VBG pH 7.21 L VBG pCO2 23.5 L VBG pO2 45 VBG HCO3 9 L VBG Total CO2 9 L VBG O2 Saturation 72 VBG Base Excess -16.3 L FiO2 21 Sodium 129 L Potassium 5.6 H Chloride 96 L Carbon Dioxide < 5 L* BUN 67 H Creatinine 1.36 H Estimated GFR 58 L BUN/Creatinine Ratio 49.3 H Glucose 745 H* Lactate 1.6 Calcium 9.6 Total Bilirubin 0.9 AST 22 ALT 33 Alkaline Phosphatase 113 Total Creatine Kinase 131 Troponin I 0.013 NT-Pro-B Natriuret Pep 391 H Total Protein 8.1 Albumin 4.6 Globulin 3.5 Albumin/Globulin Ratio 1.3 Lipase 124 Ketones 11.1 H Assessment & Plan Assessment & Plan narrative: #Severe acute diabetic ketoacidosis, type 2, present on admission - continue insulin drip until glucose <250, AG closed, and bicarb >15. bicarb on admit <5 but pH 7.2. - insulin drip ordered per nursing protocol - glucose checks q1hr - No antibiotics at this time, no obvious signs or symptoms currently, pending CT of his abd/pelvis and urinalysis. # acute leukocytosis -WBC 30.3 on admission, no obvious source of infection other than n/v. CT abd/pelvis pending as is UA. -blood cultures pending -hold on empiric antibiotics for now, low threshold to start if above evaluation reveals any possible source. # acute nausea vomiting -nausea and vomiting likely secondary to DKA -zofran prn. # mild abdominal aortic aneurysm -seen incidentally on CT abdomen previously measuring 3.7 cm, will have repeat study as noted above. # chronic HARRIS -continue home lipitor 80 mg #paroxysmal afib with RVR - patient with history of afib, noted on telemetry in ER. - likely due to DKA, favor treatment of DKA then addition of rate control agents if not improved - continue home apixaban. I spent a total of 35 minutes of critical care time on this patient's care today; this time is exclusive of procedural time. Code status is full code. Respiratory panel negative DVT prophylaxis with home apixaban Proxy was discussed, but patient cannot state a surrogate decision maker at this time, he was encouraged to think about this in the near future. I have utilized all available immediate resources to obtain, update, or review the patient's current medications. Time-Based Coding :: [TOTAL MINUTES] spent with patient and on the chart (including review of chart, obtaining history, exam, reviewing outside data, placing orders, documenting exam and treatment plan, and counseling patient) on [DATE].
[2024-03-29 18:34] LABS: Adenovirus Not Detected (Not Detect); B. parapertussis Not Detected (Not Detecte); Bordetella pertussis Not Detected (Not Detect); Chlamydophila pneumoniae Not Detected (Not Detect); Coronavirus 229E Not Detected (Not Detect); Coronavirus HKU1 Not Detected (Not Detect); Coronavirus NL 63 Not Detected (Not Detect); Coronavirus OC43 Not Detected (Not Detect); Human Metapneumovirus Not Detected (Not Detect); Human Rhinovirus/Enterovirus Not Detected (Not Detect); Influenza A Not Detected (Not Detect); Influenza B Not Detected (Not Detect); Mycoplasma pneumoniae Not Detected (Not Detect); Parainfluenza Virus 1 Not Detected (Not Detect); Parainfluenza Virus 2 Not Detected (Not Detect); Parainfluenza Virus 3 Not Detected (Not Detect); Parainfluenza Virus 4 Not Detected (Not Detect); Respiratory Syncytial Virus Not Detected (Not Detect); SARS- CoV-2 Not Detected (Not Detecte)
[2024-03-29] MEDS: SODIUM CHLORIDE 0.9% 2,328 ML 776 ML IV (18:48)
[2024-03-29] MEDS: HYDROMORPHONE 0.5 MG INJ IV (20:49)
[2024-03-29] MEDS: APIXABAN 5 MG TABLET PO (20:49)
[2024-03-29 20:58] LABS: BUN Creatinine Ratio 55.7 (6-22); Blood Urea Nitrogen 68 mg/dL (9-20); Calcium 8.8 mg/dL (8.4-10.2); Chloride 104 mmol/L (98-107); Estimated Glomerular Filt Rate > 60 mL/min (>60); HEMOLYSIS 23 (0-50); Potassium 4.9 mmol/L (3.4-5.1); Sodium 134 mmol/L (137-145)
[2024-03-29 21:02] LABS: Carbon Dioxide 6 mmol/L (22-32)
[2024-03-29 21:03] LABS: Glucose 587 mg/dL (80-110)
--- NOTE | 2024-03-29 21:58 | PC.ADMIT ---
[address] [facility] Admission Note: The patient,Herve Driver,63 y/o, was given written information regarding hospital policies, unit procedures and contact persons. Patient's smoking status: Former smoker. Vital Signs - 8 hr 03/29/24 16:05 03/29/24 16:24 03/29/24 16:24 Temperature 97.8 F Pulse Rate 109 H 109 H Respiratory Rate 26 H 25 H Blood Pressure 145/83 H 145/83 H Pulse Oximetry 100 100 Oxygen Delivery Method Room Air Oxygen Flow Rate 03/29/24 16:30 03/29/24 16:33 03/29/24 16:33 Temperature Pulse Rate 110 H 111 H Respiratory Rate 26 H 22 Blood Pressure 138/81 Pulse Oximetry 100 100 Oxygen Delivery Method Oxygen Flow Rate 03/29/24 17:00 03/29/24 17:04 03/29/24 17:04 Temperature Pulse Rate 114 H 119 H Respiratory Rate 25 H 24 Blood Pressure 140/92 H Pulse Oximetry 100 100 Oxygen Delivery Method Oxygen Flow Rate 03/29/24 17:30 03/29/24 17:30 03/29/24 18:00 Temperature Pulse Rate 111 H Respiratory Rate 21 Blood Pressure 178/102 H 121/68 Pulse Oximetry 100 Oxygen Delivery Method Oxygen Flow Rate 03/29/24 18:00 03/29/24 18:37 03/29/24 19:00 Temperature Pulse Rate 113 H 118 H 130 H Respiratory Rate 26 H Blood Pressure Pulse Oximetry 100 92 Oxygen Delivery Method Oxygen Flow Rate 03/29/24 19:43 03/29/24 19:45 03/29/24 19:45 Temperature Pulse Rate 120 H 117 H Respiratory Rate 18 Blood Pressure 139/87 Pulse Oximetry 97 Oxygen Delivery Method Oxygen Flow Rate 03/29/24 20:00 03/29/24 20:00 03/29/24 20:00 Temperature 98.4 F Pulse Rate 119 H Respiratory Rate 21 Blood Pressure 145/88 H Pulse Oximetry 98 Oxygen Delivery Method Room Air Oxygen Flow Rate 0 03/29/24 21:00 03/29/24 21:00 Temperature Pulse Rate 105 H Respiratory Rate 24 Blood Pressure 112/68 Pulse Oximetry 95 Oxygen Delivery Method Oxygen Flow Rate 0 Admit Note-Patient brought to ICU room 228. Drowsy and fatigued but oriented x4. Slider board required for transfer. Insulin gtt infusing at 10.9units/hr, increased to 15units at 2100 per protocol. NS infusing at 30kg/hr for 3hrs per order. HR ST 110-120, initial BP 145/88, RR 20s, SpO2 >94% on RA, lungs sounds CTA. Denies nausea, does have epigastric pain, IV Dilaudid given per prn-effective.
[2024-03-29 22:43] LABS: Glucose 399 mg/dL (80-110)
[2024-03-29 23:58] LABS: MRSA (Nasal) PCR NOT DETECTED (Not Detect)
[2024-03-30] VITALS (10 sets, daily range): BP systolic 131–161; BP diastolic 74–95; PULSE 102–113; RESP 14–21; TEMP 36.3–36.7; O2SAT 92–96
[2024-03-30] MEDS: DEXTROSE 5%-0.45% NS 1,000 ML 150 ML IV (00:07)
[2024-03-30 00:43] LABS: BUN Creatinine Ratio 63.1 (6-22); Blood Urea Nitrogen 65 mg/dL (9-20); Calcium 8.4 mg/dL (8.4-10.2); Carbon Dioxide 15 mmol/L (22-32); Chloride 114 mmol/L (98-107); Estimated Glomerular Filt Rate > 60 mL/min (>60); Glucose 262 mg/dL (80-110); HEMOLYSIS 17 (0-50); Potassium 4.2 mmol/L (3.4-5.1); Sodium 138 mmol/L (137-145)
[2024-03-30] MEDS: POTASSIUM CHLORIDE IN WATER 10 MEQ/100 ML PIGGYBACK 100 MEQ IV ×4 (01:08→06:50)
[2024-03-30] MEDS: INSULIN DRIP PREMIX 100 UNIT/100 ML PLAST..BAG 10 UNIT IV (01:12)
[2024-03-30] MEDS: HYDROMORPHONE 0.5 MG INJ IV ×2 (02:17→08:30)
[2024-03-30] MEDS: DEXTROSE 10 % IN WATER 1,000 ML 100 ML IV (04:17)
[2024-03-30 04:46] LABS: Hematocrit 44.8 % (41-53); Hemoglobin 14.7 g/dL (13.5-17.5); Mean Corpuscular HGB Conc 32.8 % (30-36); Mean Corpuscular Hemoglobin 28.3 PG (26-34); Mean Corpuscular Volume 86.1 fL (80-100); Platelet Count 294 X10^3/uL (150-400); Red Blood Cell Count 5.21 X10^6/uL (4.5-5.9); Red Cell Distribution Width 13.3 % (11.6-14.8); White Blood Cell Count 27.2 X10^3/uL (4.5-11.0)
[2024-03-30 04:48] LABS: Add Manual Diff / Slide Review YES
[2024-03-30 04:59] LABS: Alanine Aminotransferase 22 IU/L (<50); Albumin 3.1 g/dL (3.5-5.0); Alkaline Phosphatase 78 U/L (38-126); Aspartate Aminotransferase 21 IU/L (17-59); BUN Creatinine Ratio 64.9 (6-22); Bilirubin Total 0.7 mg/dL (0.2-1.3); Blood Urea Nitrogen 63 mg/dL (9-20); Calcium 8.3 mg/dL (8.4-10.2); Carbon Dioxide 19 mmol/L (22-32); Chloride 116 mmol/L (98-107); Estimated Glomerular Filt Rate > 60 mL/min (>60); Globulin 3.2 g/dL (1.7-4.1); Glucose 158 mg/dL (80-110); HEMOLYSIS < 15 (0-50); Magnesium 2.1 mg/dL (1.6-2.3); Potassium 4.4 mmol/L (3.4-5.1); Sodium 137 mmol/L (137-145); Total Protein 6.3 g/dL (6.3-8.2)
[2024-03-30 05:33] LABS: Neutrophils Absolute Manual 24208 /uL (3000-5900); Total Cells Counted 100
[2024-03-30 05:34] LABS: Platelet Estimate Adequate on smear; RBC Morphology Normal Morphology
[2024-03-30 06:25] LABS: Hemoglobin A1C% w Est Avg Glu > 14.0 % (4.0-6.0)
--- NOTE | 2024-03-30 07:33 | PM.PN.1 ---
Subjective Subjective Interval history: From H&P: Herve Driver is a 61yo M with PMH of DM1, HTN, HLD, and previous CVA who presents with n/v shaking and chills and found to be in DKA. He stopped taking insulin because he had felt so sick. Labs showed WBC 30, AG of at least 28 with bicab <5, glucose 745. ER provider has ordered CT for further evaluation, Respiratory panel negative. Admitted to the ICU for management of DKA. Exam Vital Signs (past 8 hours): - 03/30/24 00:00 03/30/24 00:00 03/30/24 00:00 Temperature 97.4 F L Pulse Rate 104 H Respiratory Rate 15 Blood Pressure 136/83 Pulse Oximetry 94 Oxygen Delivery Method Room Air Oxygen Flow Rate 0 03/30/24 01:00 03/30/24 01:00 03/30/24 02:00 Temperature Pulse Rate 103 H 111 H Respiratory Rate 21 18 Blood Pressure 146/82 H Pulse Oximetry 93 95 Oxygen Delivery Method Oxygen Flow Rate 0 03/30/24 02:00 03/30/24 03:00 03/30/24 03:00 Temperature Pulse Rate 104 H Respiratory Rate 18 Blood Pressure 135/78 131/78 Pulse Oximetry 93 Oxygen Delivery Method Oxygen Flow Rate 0 0 03/30/24 04:00 03/30/24 04:00 03/30/24 04:00 Temperature 97.7 F Pulse Rate 105 H Respiratory Rate 15 Blood Pressure 147/82 H Pulse Oximetry 94 Oxygen Delivery Method Room Air Oxygen Flow Rate 0 03/30/24 05:00 03/30/24 05:00 03/30/24 06:00 Temperature Pulse Rate 102 H Respiratory Rate 14 Blood Pressure 143/80 H 146/89 H Pulse Oximetry 92 Oxygen Delivery Method Oxygen Flow Rate 0 03/30/24 06:00 Temperature Pulse Rate 111 H Respiratory Rate 17 Blood Pressure Pulse Oximetry 96 Oxygen Delivery Method Oxygen Flow Rate 0 Oxygen Delivery Method Room Air Oxygen Flow Rate 0 Narrative Exam Narrative: NAD, alert and oriented. Fluent speech. Lungs are clear, normal rate and effort. Heart is regular, no murmur gallop or rub. Abdomen is soft, non distended. Extremities are free of edema. Objective Labs 03/30/24 04:26 03/30/24 04:26 Labs: Laboratory Results - last 24 hr 03/29/24 03/29/24 03/29/24 16:34 16:35 16:45 WBC 30.3 H* RBC 5.67 Hgb 16.1 Hct 51.0 MCV 90.0 MCH 28.4 MCHC 31.5 RDW 13.8 Plt Count 322 Neut % (Auto) Not Reportable Lymph % (Auto) Not Reportable [place] % (Auto) Not Reportable Eos % (Auto) Not Reportable Baso % (Auto) Not Reportable Lymph # (Auto) Not Reportable [place] # (Auto) Not Reportable Baso # (Auto) Not Reportable Total Counted 100 Seg Neutrophils % 94.0 H Band Neutrophils % Lymphocytes % (Manual) 1.0 L Monocytes % (Manual) 5.0 Neutrophils # (Manual) 13026 H Platelet Estimate RBC Morphology Normal morphology PT 9.6 INR 0.8 L APTT 31 VBG pH 7.21 L VBG pCO2 23.5 L VBG pO2 45 VBG HCO3 9 L VBG Total CO2 9 L VBG O2 Saturation 72 VBG Base Excess -16.3 L FiO2 21 Sodium 129 L Potassium 5.6 H Chloride 96 L Carbon Dioxide < 5 L* BUN 67 H Creatinine 1.36 H Estimated GFR 58 L BUN/Creatinine Ratio 49.3 H Glucose 745 H* Hemoglobin A1c Lactate 1.6 Calcium 9.6 Phosphorus Magnesium Total Bilirubin 0.9 AST 22 ALT 33 Alkaline Phosphatase 113 Total Creatine Kinase 131 Troponin I 0.013 NT-Pro-B Natriuret Pep 391 H Total Protein 8.1 Albumin 4.6 Globulin 3.5 Albumin/Globulin Ratio 1.3 Lipase 124 Nasal Screen MRSA (PCR) Ketones 11.1 H Chlamy pneumoniae PCR Adenovirus (PCR) B.parapertussis DNA PCR Coronavirus OC43 (PCR) Coronavirus HKU1 (PCR) Coronavirus 229E (PCR) SARS-CoV-2 (PCR) Coronavirus NL63 (PCR) Human Metapneumovir PCR Influenza Type A (PCR) Influenza Type B (PCR) M. pneumoniae (PCR) Parainfluenza 1 (PCR) Parainfluenza 2 (PCR) Parainfluenza 3 (PCR) Parainfluenza 4 (PCR) RSV (PCR) Entero/Rhino (PCR) 03/29/24 03/29/24 03/29/24 17:25 19:55 20:15 WBC RBC Hgb Hct MCV MCH MCHC RDW Plt Count Neut % (Auto) Lymph % (Auto) [place] % (Auto) Eos % (Auto) Baso % (Auto) Lymph # (Auto) [place] # (Auto) Baso # (Auto) Total Counted Seg Neutrophils % Band Neutrophils % Lymphocytes % (Manual) Monocytes % (Manual) Neutrophils # (Manual) Platelet Estimate RBC Morphology PT INR APTT VBG pH VBG pCO2 VBG pO2 VBG HCO3 VBG Total CO2 VBG O2 Saturation VBG Base Excess FiO2 Sodium 134 L Potassium 4.9 Chloride 104 Carbon Dioxide 6 L* BUN 68 H Creatinine 1.22 Estimated GFR > 60 BUN/Creatinine Ratio 55.7 H Glucose 587 H* Hemoglobin A1c Lactate Calcium 8.8 Phosphorus Magnesium Total Bilirubin AST ALT Alkaline Phosphatase Total Creatine Kinase Troponin I NT-Pro-B Natriuret Pep Total Protein Albumin Globulin Albumin/Globulin Ratio Lipase Nasal Screen MRSA (PCR) Not detected Ketones Chlamy pneumoniae PCR Not detected Adenovirus (PCR) Not detected B.parapertussis DNA PCR Not detected Coronavirus OC43 (PCR) Not detected Coronavirus HKU1 (PCR) Not detected Coronavirus 229E (PCR) Not detected SARS-CoV-2 (PCR) Not detected Coronavirus NL63 (PCR) Not detected Human Metapneumovir PCR Not detected Influenza Type A (PCR) Not detected Influenza Type B (PCR) Not detected M. pneumoniae (PCR) Not detected Parainfluenza 1 (PCR) Not detected Parainfluenza 2 (PCR) Not detected Parainfluenza 3 (PCR) Not detected Parainfluenza 4 (PCR) Not detected RSV (PCR) Not detected Entero/Rhino (PCR) Not detected 03/29/24 03/30/24 03/30/24 22:14 00:24 04:26 WBC 27.2 H RBC 5.21 Hgb 14.7 Hct 44.8 MCV 86.1 D MCH 28.3 MCHC 32.8 RDW 13.3 Plt Count 294 Neut % (Auto) Not Reportable Lymph % (Auto) Not Reportable [place] % (Auto) Not Reportable Eos % (Auto) Not Reportable Baso % (Auto) Not Reportable Lymph # (Auto) Not Reportable [place] # (Auto) Not Reportable Baso # (Auto) Not Reportable Total Counted 100 Seg Neutrophils % 88.0 H Band Neutrophils % 1.0 L Lymphocytes % (Manual) 4.0 L Monocytes % (Manual) 7.0 Neutrophils # (Manual) 71220 H Platelet Estimate Adequate on smear RBC Morphology Normal morphology PT INR APTT VBG pH VBG pCO2 VBG pO2 VBG HCO3 VBG Total CO2 VBG O2 Saturation VBG Base Excess FiO2 Sodium 138 137 Potassium 4.2 4.4 Chloride 114 H 116 H Carbon Dioxide 15 L 19 L BUN 65 H 63 H Creatinine 1.03 0.97 Estimated GFR > 60 > 60 BUN/Creatinine Ratio 63.1 H 64.9 H Glucose 399 H D 262 H D 158 H D Hemoglobin A1c > 14.0 H Lactate Calcium 8.4 8.3 L Phosphorus 3.0 Magnesium 2.1 Total Bilirubin 0.7 AST 21 ALT 22 Alkaline Phosphatase 78 Total Creatine Kinase Troponin I NT-Pro-B Natriuret Pep Total Protein 6.3 Albumin 3.1 L Globulin 3.2 Albumin/Globulin Ratio 1.0 Lipase Nasal Screen MRSA (PCR) Ketones Chlamy pneumoniae PCR Adenovirus (PCR) B.parapertussis DNA PCR Coronavirus OC43 (PCR) Coronavirus HKU1 (PCR) Coronavirus 229E (PCR) SARS-CoV-2 (PCR) Coronavirus NL63 (PCR) Human Metapneumovir PCR Influenza Type A (PCR) Influenza Type B (PCR) M. pneumoniae (PCR) Parainfluenza 1 (PCR) Parainfluenza 2 (PCR) Parainfluenza 3 (PCR) Parainfluenza 4 (PCR) RSV (PCR) Entero/Rhino (PCR) [facility] Medical History Stroke Hyperlipidemia Hypertension Type 1 diabetes Social History household members: none Smoking Status: Former smoker alcohol intake: current Assessment & Plan Assessment & Plan narrative: -Severe acute diabetic ketoacidosis, type 2, present on admission and improved. - continue insulin drip until glucose <250, AG closed, and bicarb >15. bicarb on admit <5 but pH 7.2. - insulin drip ordered per nursing protocol - glucose checks q1hr - No antibiotics at this time, no obvious signs or symptoms currently, pending CT of his abd/pelvis and urinalysis. -Acute leukocytosis, present on admission and -WBC 30.3 on admission, no obvious source of infection other than n/v. CT abd/pelvis pending as is UA. -blood cultures pending -hold on empiric antibiotics for now, low threshold to start if above evaluation reveals any possible source. -Acute nausea vomiting, present on admission and -nausea and vomiting likely secondary to DKA -zofran prn. -Mild abdominal aortic aneurysm, present on admission and -seen incidentally on CT abdomen previously measuring 3.7 cm, will have repeat study as noted above. -Chronic HARRIS, present on admission and -continue home lipitor 80 mg -Paroxysmal afib with RVR, present on admission and improved. - patient with history of afib, noted on telemetry in ER. - likely due to DKA, favor treatment of DKA then addition of rate control agents if not improved - continue home apixaban. I spent a total of 35 minutes of critical care time on this patient's care today; this time is exclusive of procedural time. Code status is full code. Respiratory panel negative DVT prophylaxis with home apixaban Time-Based Coding :: [TOTAL MINUTES] spent with patient and on the chart (including review of chart, obtaining history, exam, reviewing outside data, placing orders, documenting exam and treatment plan, and counseling patient) on [DATE]. Quality VTE Deep Vein Thrombosis/Pulmonary Embolism Present on Admission: No
[2024-03-30] MEDS: ATORVASTATIN 20 MG TABLET 80 MG PO (08:29)
[2024-03-30] MEDS: INSULIN LISPRO 100 UNIT/ML 3ML VIAL SUBCUT (08:29)
[2024-03-30] MEDS: INSULIN GLARGINE 100 UNIT/ML 3ML PEN 30 UNIT SUBCUT (08:30)
[2024-03-30] MEDS: PANTOPRAZOLE DR 40 MG TABLET PO (08:30)
[2024-03-30] MEDS: APIXABAN 5 MG TABLET PO (08:30)
--- NOTE | 2024-03-30 08:58 | CM.DANOTE ---
Addendum entered by SAMMY Gross 03/30/24 12:31: ADD: Placed call to [email or web address] P [phone], [facility] transport provider weekends and after hours; taxi arranged for p/u for approx [address], [place] [address] Original Note: Initial DCP Assessment Note Pt is a 63 yo male, resident of [place], arrives via EMS with weakness and dizziness, admitted for management of DKA. PCP: Amaya Jackson Payer: Karolyn MEIER Reviewed chart, met w/patient to introduce self and role. Patient lives in [place] independently with his brother Thomas who he cares for. Patient has his ex partner, Destiney, listed in his contacts, reports she is currently at a SNF. Patient reports having a lot of trash piled up in his home, does not have trash service where he lives, and references a dispute with [employer] billing when asked why. Patient asks for help getting a ride home upon discharge; which will likely be [facility] transport. Patient denies other needs from this CM team. CM team will plan to follow clinical course closely, anticipate discharge home via [facility] transport, which will be a call to [facility] over the weekend. SAMMY Sue Discharge Planning/Care Management CM Discharge Assessment Start: 03/30/24 08:54 Freq: Status: Active Protocol: Document 03/30/24 08:54 JORGE (Rec: 03/30/24 08:58 JORGE [id number]) Discharge Planning Assessment Assigned [employer] SAMMY Contreras DPOA/Assigned Designee Name Destiney Hernandez, ex partner Contact Information [phone] Advance Directives? No History Provided By Patient,Medical Record Prior Living Arrangements House Household Members family Type of transportation used prior to Drives own vehicle admit Independent with ADL's Yes Is patient alert and oriented? Yes Caregiver for Another Yes: Patient takes care of his brother, Thomas Comment Patient will need Medicaid taxi upon d/c due to patient not able to identify any friends or family and patient arrived to via ambulance. Discharge Plan Home Referrals Initiated None needed
--- NOTE | 2024-03-30 10:52 | PM.DS.1 ---
History of Present Illness History of Present Illness Chief complaint: WKN/Dizzy Narrative: Narrative: Herve Driver is a 61yo M with PMH of DM1, HTN, HLD, and previous CVA who presents with n/v shaking and chills and found to be in DKA. He stopped taking insulin because he had felt so sick. Labs showed WBC 30, AG of at least 28 with bicab <5, glucose 745. ER provider has ordered CT for further evaluation, Respiratory panel negative. Admitted to the ICU for management of DKA. Discharge Providers Provider Date of admission: 03/29/24 18:07 Discharge Date: 03/30/24 Primary care physician: HARMEET Banda Consults: None Discharge provider: Kolby Yost MD Summary Hospital Course Discharge Diagnosis: Severe acute diabetic ketoacidosis, type 2, present on admission and improved. - continue insulin drip until glucose <250, AG closed, and bicarb >15. bicarb on admit <5 but pH 7.2. - insulin drip ordered per nursing protocol - glucose checks q1hr - No antibiotics at this time, no obvious signs or symptoms currently, pending CT of his abd/pelvis and urinalysis. Acute leukocytosis , present on admission and improved. -WBC 30.3 on admission, no obvious source of infection other than n/v. CT abd/pelvis pending as is UA. -blood cultures pending -hold on empiric antibiotics for now, low threshold to start if above evaluation reveals any possible source. Nausea and vomiting -nausea and vomiting likely secondary to DKA -zofran prn. Abdominal aortic aneurysm, present on admission and stable. -seen incidentally on CT abdomen previously measuring 3.7 cm, will have repeat study as noted above. HLD, present on admission and stable. -continue home lipitor 80 mg Paroxysmal afib with RVR, present on admission and improved. - patient with history of afib, noted on telemetry in ER. - likely due to DKA, favor treatment of DKA then addition of rate control agents if not improved - continue home apixaban. Hospital Course: He was admitted with DKA secondary to medication noncompliance and treated in the typical fashion with IV fluids, electrolyte management, and insulin drip. He was improve symptomatically and had resolution of hyperglycemia and closing of his anion gap. He was transitioned to subcutaneous insulin on the morning of March 30 and did well with the diet and felt at baseline. He was felt to be stable for discharge with close follow up. He states he was not have a PCP in his urged to get 1. The patient has been refilling insulin from a prior PCP. The the importance of insulin compliance for his situation was stressed repeatedly. Status at Discharge Cognitive/behavioral status at discharge: oriented Functional status at discharge: independent ambulation Overall status at discharge: patient is back to baseline Exam Vital Signs (past 8 hours): - 03/30/24 03:00 03/30/24 03:00 03/30/24 04:00 Temperature Pulse Rate 104 H Respiratory Rate 18 Blood Pressure 131/78 147/82 H Pulse Oximetry 93 Oxygen Delivery Method Oxygen Flow Rate 0 03/30/24 04:00 03/30/24 04:00 03/30/24 05:00 Temperature 97.7 F Pulse Rate 105 H Respiratory Rate 15 Blood Pressure 143/80 H Pulse Oximetry 94 Oxygen Delivery Method Room Air Oxygen Flow Rate 0 03/30/24 05:00 03/30/24 06:00 03/30/24 06:00 Temperature Pulse Rate 102 H 111 H Respiratory Rate 14 17 Blood Pressure 146/89 H Pulse Oximetry 92 96 Oxygen Delivery Method Oxygen Flow Rate 0 0 03/30/24 07:00 03/30/24 07:00 03/30/24 07:00 Temperature Pulse Rate 110 H Respiratory Rate Blood Pressure 161/95 H Pulse Oximetry 94 Oxygen Delivery Method Room Air Oxygen Flow Rate 03/30/24 08:00 03/30/24 08:00 03/30/24 09:00 Temperature 98.1 F 98.1 F Pulse Rate 113 H Respiratory Rate Blood Pressure 143/87 H 133/74 Pulse Oximetry 96 Oxygen Delivery Method Oxygen Flow Rate 03/30/24 09:00 Temperature Pulse Rate 104 H Respiratory Rate Blood Pressure Pulse Oximetry 93 Oxygen Delivery Method Oxygen Flow Rate Oxygen Delivery Method Room Air Oxygen Flow Rate 0 Narrative Exam Narrative: NAD, alert and oriented. Fluent speech. Lungs are clear, normal rate and effort. Heart is regular, no murmur gallop or rub. Abdomen is soft, non distended. Extremities are free of edema. Objective Labs 03/30/24 04:26 03/30/24 04:26 Labs: Laboratory Results - last 24 hr 03/29/24 03/29/24 03/29/24 16:34 16:35 16:45 WBC 30.3 H* RBC 5.67 Hgb 16.1 Hct 51.0 MCV 90.0 MCH 28.4 MCHC 31.5 RDW 13.8 Plt Count 322 Neut % (Auto) Not Reportable Lymph % (Auto) Not Reportable [place] % (Auto) Not Reportable Eos % (Auto) Not Reportable Baso % (Auto) Not Reportable Lymph # (Auto) Not Reportable [place] # (Auto) Not Reportable Baso # (Auto) Not Reportable Total Counted 100 Seg Neutrophils % 94.0 H Band Neutrophils % Lymphocytes % (Manual) 1.0 L Monocytes % (Manual) 5.0 Neutrophils # (Manual) 78189 H Platelet Estimate RBC Morphology Normal morphology PT 9.6 INR 0.8 L APTT 31 VBG pH 7.21 L VBG pCO2 23.5 L VBG pO2 45 VBG HCO3 9 L VBG Total CO2 9 L VBG O2 Saturation 72 VBG Base Excess -16.3 L FiO2 21 Sodium 129 L Potassium 5.6 H Chloride 96 L Carbon Dioxide < 5 L* BUN 67 H Creatinine 1.36 H Estimated GFR 58 L BUN/Creatinine Ratio 49.3 H Glucose 745 H* Hemoglobin A1c Lactate 1.6 Calcium 9.6 Phosphorus Magnesium Total Bilirubin 0.9 AST 22 ALT 33 Alkaline Phosphatase 113 Total Creatine Kinase 131 Troponin I 0.013 NT-Pro-B Natriuret Pep 391 H Total Protein 8.1 Albumin 4.6 Globulin 3.5 Albumin/Globulin Ratio 1.3 Lipase 124 Nasal Screen MRSA (PCR) Ketones 11.1 H Chlamy pneumoniae PCR Adenovirus (PCR) B.parapertussis DNA PCR Coronavirus OC43 (PCR) Coronavirus HKU1 (PCR) Coronavirus 229E (PCR) SARS-CoV-2 (PCR) Coronavirus NL63 (PCR) Human Metapneumovir PCR Influenza Type A (PCR) Influenza Type B (PCR) M. pneumoniae (PCR) Parainfluenza 1 (PCR) Parainfluenza 2 (PCR) Parainfluenza 3 (PCR) Parainfluenza 4 (PCR) RSV (PCR) Entero/Rhino (PCR) 03/29/24 03/29/24 03/29/24 17:25 19:55 20:15 WBC RBC Hgb Hct MCV MCH MCHC RDW Plt Count Neut % (Auto) Lymph % (Auto) [place] % (Auto) Eos % (Auto) Baso % (Auto) Lymph # (Auto) [place] # (Auto) Baso # (Auto) Total Counted Seg Neutrophils % Band Neutrophils % Lymphocytes % (Manual) Monocytes % (Manual) Neutrophils # (Manual) Platelet Estimate RBC Morphology PT INR APTT VBG pH VBG pCO2 VBG pO2 VBG HCO3 VBG Total CO2 VBG O2 Saturation VBG Base Excess FiO2 Sodium 134 L Potassium 4.9 Chloride 104 Carbon Dioxide 6 L* BUN 68 H Creatinine 1.22 Estimated GFR > 60 BUN/Creatinine Ratio 55.7 H Glucose 587 H* Hemoglobin A1c Lactate Calcium 8.8 Phosphorus Magnesium Total Bilirubin AST ALT Alkaline Phosphatase Total Creatine Kinase Troponin I NT-Pro-B Natriuret Pep Total Protein Albumin Globulin Albumin/Globulin Ratio Lipase Nasal Screen MRSA (PCR) Not detected Ketones Chlamy pneumoniae PCR Not detected Adenovirus (PCR) Not detected B.parapertussis DNA PCR Not detected Coronavirus OC43 (PCR) Not detected Coronavirus HKU1 (PCR) Not detected Coronavirus 229E (PCR) Not detected SARS-CoV-2 (PCR) Not detected Coronavirus NL63 (PCR) Not detected Human Metapneumovir PCR Not detected Influenza Type A (PCR) Not detected Influenza Type B (PCR) Not detected M. pneumoniae (PCR) Not detected Parainfluenza 1 (PCR) Not detected Parainfluenza 2 (PCR) Not detected Parainfluenza 3 (PCR) Not detected Parainfluenza 4 (PCR) Not detected RSV (PCR) Not detected Entero/Rhino (PCR) Not detected 03/29/24 03/30/24 03/30/24 22:14 00:24 04:26 WBC 27.2 H RBC 5.21 Hgb 14.7 Hct 44.8 MCV 86.1 D MCH 28.3 MCHC 32.8 RDW 13.3 Plt Count 294 Neut % (Auto) Not Reportable Lymph % (Auto) Not Reportable [place] % (Auto) Not Reportable Eos % (Auto) Not Reportable Baso % (Auto) Not Reportable Lymph # (Auto) Not Reportable [place] # (Auto) Not Reportable Baso # (Auto) Not Reportable Total Counted 100 Seg Neutrophils % 88.0 H Band Neutrophils % 1.0 L Lymphocytes % (Manual) 4.0 L Monocytes % (Manual) 7.0 Neutrophils # (Manual) 76057 H Platelet Estimate Adequate on smear RBC Morphology Normal morphology PT INR APTT VBG pH VBG pCO2 VBG pO2 VBG HCO3 VBG Total CO2 VBG O2 Saturation VBG Base Excess FiO2 Sodium 138 137 Potassium 4.2 4.4 Chloride 114 H 116 H Carbon Dioxide 15 L 19 L BUN 65 H 63 H Creatinine 1.03 0.97 Estimated GFR > 60 > 60 BUN/Creatinine Ratio 63.1 H 64.9 H Glucose 399 H D 262 H D 158 H D Hemoglobin A1c > 14.0 H Lactate Calcium 8.4 8.3 L Phosphorus 3.0 Magnesium 2.1 Total Bilirubin 0.7 AST 21 ALT 22 Alkaline Phosphatase 78 Total Creatine Kinase Troponin I NT-Pro-B Natriuret Pep Total Protein 6.3 Albumin 3.1 L Globulin 3.2 Albumin/Globulin Ratio 1.0 Lipase Nasal Screen MRSA (PCR) Ketones Chlamy pneumoniae PCR Adenovirus (PCR) B.parapertussis DNA PCR Coronavirus OC43 (PCR) Coronavirus HKU1 (PCR) Coronavirus 229E (PCR) SARS-CoV-2 (PCR) Coronavirus NL63 (PCR) Human Metapneumovir PCR Influenza Type A (PCR) Influenza Type B (PCR) M. pneumoniae (PCR) Parainfluenza 1 (PCR) Parainfluenza 2 (PCR) Parainfluenza 3 (PCR) Parainfluenza 4 (PCR) RSV (PCR) Entero/Rhino (PCR) PFSH Medical History Stroke Hyperlipidemia Hypertension Type 1 diabetes Social History household members: family Smoking Status: Former smoker alcohol intake: current Discharge Assessment & Plan Assessment and Plan Assessment: Severe acute diabetic ketoacidosis, type 2, present on admission and improved. - continue insulin drip until glucose <250, AG closed, and bicarb >15. bicarb on admit <5 but pH 7.2. - insulin drip ordered per nursing protocol - glucose checks q1hr - No antibiotics at this time, no obvious signs or symptoms currently, pending CT of his abd/pelvis and urinalysis. Acute leukocytosis (possible CLL) , present on admission and improved. -WBC 30.3 on admission, no obvious source of infection other than n/v. CT abd/pelvis pending as is UA. -blood cultures pending -hold on empiric antibiotics for now, low threshold to start if above evaluation reveals any possible source. -clinically improved. 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 The patient will require ongoing evaluation of this once he establishes with his primary care physician. Plan of Treatment: Discharge to home. Resume usual medications and stressed the importance of not stopping insulin. -evaluation for possible CLL (longstanding abnormal leukocytosis back to 2021) Discharge Plan Discharge Plan Patient Disposition: Home Provider Discharge Comment: Stable for discharge home with resumption of all usual medications. Close follow up with PCP within the next week. Discharge orders & Medications Prescriptions: Continued atorvastatin 80 mg tablet 80 mg PO DAILY Patient Comments: TAKE 1 TABLET BY MOUTH ONCE DAILY pantoprazole 40 mg tablet,delayed release (DR/EC) 40 mg PO DAILY Rx Instructions: ran out 3 days ago Levemir U-100 Insulin 100 unit/mL solution 40 unit SUBCUT BID Patient Comments: INJECT 40 UNITS SUBCUTANEOUSLY TWICE DAILY NEEDED lisinopril 10 mg tablet 10 mg PO DAILY Patient Comments: TAKE 1 TABLET BY MOUTH ONCE DAILY Eliquis 5 mg tablet 5 mg PO BID Medication counseling provided by Pharmacist: No Follow up/Referrals: Amaya Jackson ARNP [Primary Care Provider] - Discharge Health Status Multidrug resistant organism: No MDRO Diet/Activity/Treatments Diet: Carb-consistent/Diabetic Activity: As tolerated Skin/Wound/Dressing Care Report to your healthcare provider any signs of infection, such as:: chills, fever and night sweats Visit Report/Discharge Packet Instructions: DI for Diabetic Ketoacidosis Stand Alone Forms: Patient Portal/API Discharge Data Primary Care Provider: Amaya Jackson Quality VTE Deep Vein Thrombosis/Pulmonary Embolism Present on Admission: No
== END 2024-03-30 12:31 | disposition home or self-care (01) | DRG 638 ==
LOC: ED 16:44 → AC 18:08 → ICU 18:55
PROVIDERS: Admitting Provider Internal Medicine; Emergency Provider Emergency Medicine; PCP Nurse Practitioner; Referring Provider Emergency Medicine; Visit Provider Internal Medicine
DX: E10.10 Type 1 diabetes mellitus with ketoacidosis without coma (principal); C91.10 Chronic lymphocytic leukemia of B-cell type not having achieved remission; I71.40 Abdominal aortic aneurysm, without rupture, unspecified; I48.0 Paroxysmal atrial fibrillation; E78.5 Hyperlipidemia, unspecified; I10 Essential (primary) hypertension; T38.3X6A Underdosing of insulin and oral hypoglycemic [antidiabetic] drugs, initial encounter; Z79.01 Long term (current) use of anticoagulants; Z86.73 Personal history of transient ischemic attack (TIA), and cerebral infarction without residual deficits; Z87.891 Personal history of nicotine dependence; Z91.128 Patient's intentional underdosing of medication regimen for other reason
CPT/HCPCS: 36415; 51798; 71045; 74177; 80048; 80053; 82009; 82550; 82805; 82947; 82962; 83036; 83605; 83690; 83735; 83880; 84100; 84484; 85007; 85025; 85610; 85730; 87040; 87633; 87797; 93005; 96365; 96375; 99284; 99291; J0780; J1170; J1815; J2405; J2543; Q9967

== ENCOUNTER 2024-04-04 00:44 | Emergency (ER) | payer OTHER, MEDICAID, SELFPAY ==
[2024-04-04] VITALS (49 sets, daily range): BP systolic 116–168; BP diastolic 70–101; PULSE 85–122; RESP 9–26; TEMP 36.4; O2SAT 94–99; BMI 29.7
--- NOTE | 2024-04-04 00:48 | ED.WEAKNESS ---
HPI - Weakness <Monique Fountain MD - Last Filed: 04/05/24 18:04> General Chief complaint: Weakness Stated complaint: weakness Time Seen by Provider: 04/04/24 00:45 History of Present Illness HPI Narrative: 63-year-old male with history of type 1 diabetes, hypertension, hyperlipidemia, previous CVA presents by EMS from home for generalized weakness. Patient recently admitted from 03/29-03/30 at [facility] for DKA. Patient states that he has been weak on his right side for the last 2-3 days following his discharge from the hospital. Tonight patient felt like it was worse than ever and so he decided to call 911. Last dose of insulin earlier this morning. Patient states that his last stroke was approximately 7 years ago. His symptoms at that time right upper and lower extremity weakness as well as pain shooting from his head to his right arm. He states that he has been out of his Eliquis for approximately the last week. Related Data Home Medications Medication Instructions Recorded Confirmed apixaban 5 mg tablet (Eliquis) 5 mg PO BID 06/20/22 03/30/24 atorvastatin 80 mg tablet 80 mg PO DAILY 06/20/22 03/30/24 insulin detemir U-100 100 unit/mL 40 unit SUBCUT BID 06/20/22 03/30/24 subcutaneous solution (Levemir U-100 Insulin) lisinopril 10 mg tablet 10 mg PO DAILY 06/20/22 03/30/24 pantoprazole 40 mg tablet,delayed 40 mg PO DAILY 06/20/22 03/30/24 release Allergies Allergy/AdvReac Type Severity Reaction Status Date / Time fentanyl AdvReac Verified 02/08/22 11:13 hydrocodone AdvReac Verified 02/08/22 11:13 Patient History <Monique Fountain MD - Last Filed: 04/05/24 18:04> Medical History Stroke Hyperlipidemia Hypertension Type 1 diabetes Social History household members: family Smoking Status: Former smoker alcohol intake: current Smoking Status: Former smoker alcohol intake frequency: 0-2 drinks per day Substance Use Type: marijuana Exam <Monique Fountain MD - Last Filed: 04/05/24 18:04> Initial Vital Signs Initial Vital Signs: Vital Signs Pulse Rate 101 H 04/04/24 00:48 Respiratory Rate 13 04/04/24 00:48 Pulse Oximetry 98 04/04/24 00:48 Const: Awake, alert, appears chronically unwell, older than stated age Cardiac: regular rate, regular rhythm RESP: unlabored, clear bilaterally, no wheezing GI: Soft, nontender, nondistended Skin: Warm, Dry, intact, no rashes Neuro: AO x3, CN II-XII grossly intact, global weakness, no upper or lower extremity drift, strength equal bilaterally, no ataxia <Julio Pierce DO - Last Filed: 04/05/24 08:35> Initial Vital Signs Initial Vital Signs: Vital Signs Pulse Rate 101 H 04/04/24 00:48 Respiratory Rate 13 04/04/24 00:48 Pulse Oximetry 98 04/04/24 00:48 Course <Monique Fountain MD - Last Filed: 04/05/24 18:04> Orders Ordered: Discontinued Medications Acetaminophen (Acetaminophen 325 Mg Tablet) 650 mg PO Q6H PRN PRN Reason: Fever/Mild Pain (1-3) Last Admin: 04/05/24 04:08 Dose: 650 mg Documented By: BELL Al Hydrox/Mg Hydrox/Simethicone (Mag Hydrox/Alum/Simeth 30 Ml Udc) 30 ml PO NOW ONE Stop: 04/04/24 02:05 Last Admin: 04/04/24 02:09 Dose: 30 ml Documented By: Aspirin (Aspirin 81 Mg Chew Tab) 324 mg PO NOW ONE Stop: 04/04/24 02:56 Last Admin: 04/04/24 03:31 Dose: 324 mg Documented By: Clopidogrel Bisulfate (Clopidogrel 75 Mg Tablet) 300 mg PO NOW ONE Stop: 04/04/24 07:51 Last Admin: 04/04/24 08:02 Dose: 300 mg Documented By: MARK Sodium Chloride (Normal Saline 0.9%) 1,000 mls @ 1,000 mls/hr IV BOLUS ONE Stop: 04/04/24 02:28 Last Infusion: 04/04/24 04:10 Dose: Infused Documented By: Admin: 04/04/24 01:36 Dose: 1,000 mls/hr Documented By: Sodium Chloride (Normal Saline 0.9%) 1,000 mls @ 1,000 mls/hr IV BOLUS ONE Stop: 04/04/24 04:23 Last Infusion: 04/04/24 07:44 Dose: Infused Documented By: Admin: 04/04/24 03:31 Dose: 1,000 mls/hr Documented By: Sodium Chloride (Normal Saline 0.9%) 1,000 mls @ 100 mls/hr IV CONT ISIS Last Infusion: 04/05/24 09:15 Dose: Infused Documented By: Admin: 04/04/24 15:38 Dose: 100 mls/hr Documented By: MARK Insulin Glargine (Insulin Glargine 100 Unit/Ml 3ml Pen) 40 unit SUBCUT NOW ONE Stop: 04/04/24 12:31 Last Admin: 04/04/24 13:14 Dose: 40 unit Documented By: MARK Co-signed By: HEBERT Insulin Human Regular (Insulin Regular 100 Unit/Ml 3 Ml Vial) 10 unit IV NOW ONE Stop: 04/04/24 01:52 Last Admin: 04/04/24 02:09 Dose: 10 unit Documented By: Co-signed By: BELL Insulin Human Regular (Insulin Regular 100 Unit/Ml 3 Ml Vial) 10 unit IV NOW ONE Stop: 04/04/24 15:23 Last Admin: 04/04/24 15:39 Dose: 10 unit Documented By: MARK Co-signed By: MANOHAR Insulin Human Regular (Insulin Regular 100 Unit/Ml 3 Ml Vial) 15 unit IV NOW ONE Stop: 04/04/24 17:14 Last Admin: 04/04/24 17:19 Dose: 15 unit Documented By: ALLY Co-signed By: MANOHAR Lidocaine HCl (Lidocaine Viscous 2% 15 Ml Solution) 15 ml PO NOW ONE Stop: 04/04/24 02:05 Last Admin: 04/04/24 02:09 Dose: 15 ml Documented By: Ondansetron HCl (Ondansetron 4 Mg Odt) 4 mg SL NOW ONE Stop: 04/04/24 20:51 Last Admin: 04/04/24 20:56 Dose: 4 mg Documented By: Oxycodone/Acetaminophen (Oxycodone/Acetaminophen 5/325 Tablet) 1 tab PO NOW ONE Stop: 04/05/24 09:02 Last Admin: 04/05/24 09:06 Dose: 1 tab Documented By: EUGENIA Pantoprazole Sodium (Pantoprazole 40 Mg Vial) 40 mg IV NOW ONE Stop: 04/04/24 08:30 Last Admin: 04/04/24 08:40 Dose: 40 mg Documented By: MARK Prochlorperazine (Prochlorperazine 10 Mg/2 Ml Vial) 5 mg IV NOW ONE Stop: 04/04/24 01:30 Last Admin: 04/04/24 01:34 Dose: 5 mg Documented By: Prochlorperazine (Prochlorperazine 10 Mg/2 Ml Vial) 5 mg IV NOW ONE Stop: 04/05/24 09:02 Last Admin: 04/05/24 09:06 Dose: 5 mg Documented By: Vital Signs Vital signs: Vital Signs - 8 hr 04/05/24 01:00 04/05/24 01:30 04/05/24 02:00 Pulse Rate 84 83 Respiratory Rate 18 20 Blood Pressure 155/81 H Pulse Oximetry 97 96 04/05/24 02:00 04/05/24 02:30 04/05/24 03:00 Pulse Rate 78 86 87 Respiratory Rate 20 11 L 12 Blood Pressure Pulse Oximetry 97 98 98 04/05/24 03:30 04/05/24 04:00 04/05/24 04:00 Pulse Rate 85 84 Respiratory Rate 12 17 Blood Pressure 131/73 Pulse Oximetry 97 97 04/05/24 04:30 04/05/24 05:00 04/05/24 05:30 Pulse Rate 86 84 81 Respiratory Rate 19 16 20 Blood Pressure Pulse Oximetry 99 99 99 04/05/24 06:00 04/05/24 06:00 04/05/24 06:30 Pulse Rate 74 75 Respiratory Rate 19 18 Blood Pressure 138/71 138/71 Pulse Oximetry 98 98 04/05/24 07:00 04/05/24 07:30 Pulse Rate 76 75 Respiratory Rate 14 19 Blood Pressure Pulse Oximetry 98 98 <Julio Pierce DO - Last Filed: 04/05/24 08:35> Orders Ordered: Discontinued Medications Acetaminophen (Acetaminophen 325 Mg Tablet) 650 mg PO Q6H PRN PRN Reason: Fever/Mild Pain (1-3) Last Admin: 04/05/24 04:08 Dose: 650 mg Documented By: GC Al Hydrox/Mg Hydrox/Simethicone (Mag Hydrox/Alum/Simeth 30 Ml Udc) 30 ml PO NOW ONE Stop: 04/04/24 02:05 Last Admin: 04/04/24 02:09 Dose: 30 ml Documented By: Aspirin (Aspirin 81 Mg Chew Tab) 324 mg PO NOW ONE Stop: 04/04/24 02:56 Last Admin: 04/04/24 03:31 Dose: 324 mg Documented By: Clopidogrel Bisulfate (Clopidogrel 75 Mg Tablet) 300 mg PO NOW ONE Stop: 04/04/24 07:51 Last Admin: 04/04/24 08:02 Dose: 300 mg Documented By: MARK Sodium Chloride (Normal Saline 0.9%) 1,000 mls @ 1,000 mls/hr IV BOLUS ONE Stop: 04/04/24 02:28 Last Infusion: 04/04/24 04:10 Dose: Infused Documented By: Admin: 04/04/24 01:36 Dose: 1,000 mls/hr Documented By: Sodium Chloride (Normal Saline 0.9%) 1,000 mls @ 1,000 mls/hr IV BOLUS ONE Stop: 04/04/24 04:23 Last Infusion: 04/04/24 07:44 Dose: Infused Documented By: Admin: 04/04/24 03:31 Dose: 1,000 mls/hr Documented By: Sodium Chloride (Normal Saline 0.9%) 1,000 mls @ 100 mls/hr IV CONT ISIS Last Infusion: 04/05/24 09:15 Dose: Infused Documented By: Admin: 04/04/24 15:38 Dose: 100 mls/hr Documented By: MARK Insulin Glargine (Insulin Glargine 100 Unit/Ml 3ml Pen) 40 unit SUBCUT NOW ONE Stop: 04/04/24 12:31 Last Admin: 04/04/24 13:14 Dose: 40 unit Documented By: MARK Co-signed By: HEBERT Insulin Human Regular (Insulin Regular 100 Unit/Ml 3 Ml Vial) 10 unit IV NOW ONE Stop: 04/04/24 01:52 Last Admin: 04/04/24 02:09 Dose: 10 unit Documented By: Co-signed By: GC Insulin Human Regular (Insulin Regular 100 Unit/Ml 3 Ml Vial) 10 unit IV NOW ONE Stop: 04/04/24 15:23 Last Admin: 04/04/24 15:39 Dose: 10 unit Documented By: MARK Co-signed By: MANOHAR Insulin Human Regular (Insulin Regular 100 Unit/Ml 3 Ml Vial) 15 unit IV NOW ONE Stop: 04/04/24 17:14 Last Admin: 04/04/24 17:19 Dose: 15 unit Documented By: ALLY Co-signed By: MANOHAR Lidocaine HCl (Lidocaine Viscous 2% 15 Ml Solution) 15 ml PO NOW ONE Stop: 04/04/24 02:05 Last Admin: 04/04/24 02:09 Dose: 15 ml Documented By: Ondansetron HCl (Ondansetron 4 Mg Odt) 4 mg SL NOW ONE Stop: 04/04/24 20:51 Last Admin: 04/04/24 20:56 Dose: 4 mg Documented By: Oxycodone/Acetaminophen (Oxycodone/Acetaminophen 5/325 Tablet) 1 tab PO NOW ONE Stop: 04/05/24 09:02 Last Admin: 04/05/24 09:06 Dose: 1 tab Documented By: Pantoprazole Sodium (Pantoprazole 40 Mg Vial) 40 mg IV NOW ONE Stop: 04/04/24 08:30 Last Admin: 04/04/24 08:40 Dose: 40 mg Documented By: MARK Prochlorperazine (Prochlorperazine 10 Mg/2 Ml Vial) 5 mg IV NOW ONE Stop: 04/04/24 01:30 Last Admin: 04/04/24 01:34 Dose: 5 mg Documented By: Prochlorperazine (Prochlorperazine 10 Mg/2 Ml Vial) 5 mg IV NOW ONE Stop: 04/05/24 09:02 Last Admin: 04/05/24 09:06 Dose: 5 mg Documented By: Vital Signs Vital signs: Vital Signs - 8 hr 04/05/24 01:00 04/05/24 01:30 04/05/24 02:00 Pulse Rate 84 83 Respiratory Rate 18 20 Blood Pressure 155/81 H Pulse Oximetry 97 96 04/05/24 02:00 04/05/24 02:30 04/05/24 03:00 Pulse Rate 78 86 87 Respiratory Rate 20 11 L 12 Blood Pressure Pulse Oximetry 97 98 98 04/05/24 03:30 04/05/24 04:00 04/05/24 04:00 Pulse Rate 85 84 Respiratory Rate 12 17 Blood Pressure 131/73 Pulse Oximetry 97 97 04/05/24 04:30 04/05/24 05:00 04/05/24 05:30 Pulse Rate 86 84 81 Respiratory Rate 19 16 20 Blood Pressure Pulse Oximetry 99 99 99 04/05/24 06:00 04/05/24 06:00 04/05/24 06:30 Pulse Rate 74 75 Respiratory Rate 19 18 Blood Pressure 138/71 138/71 Pulse Oximetry 98 98 04/05/24 07:00 04/05/24 07:30 Pulse Rate 76 75 Respiratory Rate 14 19 Blood Pressure Pulse Oximetry 98 98 MDM - Weakness <Monique Fountain MD - Last Filed: 04/05/24 18:04> Lab Data 04/04/24 00:55 04/04/24 00:55 Labs: Lab Results 04/04/24 04/04/24 Range/Units 00:55 01:24 WBC 15.4 H (4.5-11.0) X10^3/uL RBC 5.40 (4.5-5.9) X10^6/uL Hgb 15.4 (13.5-17.5) g/dL Hct 47.2 (41-53) % MCV 87.4 (80-100) fL MCH 28.6 (26-34) PG MCHC 32.7 (30-36) % RDW 13.0 (11.6-14.8) % Plt Count 358 (150-400) X10^3/uL Neut % (Auto) 77.8 H (50-75) % Lymph % (Auto) 13.5 L (25-40) % [place] % (Auto) 7.7 (3-14) % Eos % (Auto) 0.4 L (2-4) % Baso % (Auto) 0.6 (0-2) % Neut # (Auto) 76927 H (8399-3018) /uL Lymph # (Auto) 2100 (3429-4964) /uL [place] # (Auto) 1200 H (0-900) /uL Eos # (Auto) 100 (0-450) /uL Baso # (Auto) 100 (0-100) /uL VBG pH 7.41 (7.33-7.43) VBG pCO2 28.5 L (45-50) mmHg VBG pO2 45 (35-45) mmHg VBG HCO3 18 L (24-28) mmol/L VBG Total CO2 17 L (24-29) mmol/L VBG O2 Saturation 82 H (70-75) % VBG Base Excess -5.0 L (0-4) mmol/L FiO2 21 Sodium 131 L (137-145) mmol/L Potassium 5.3 H (3.4-5.1) mmol/L Chloride 100 (98-107) mmol/L Carbon Dioxide 18 L (22-32) mmol/L BUN 44 H (9-20) mg/dL Creatinine 0.92 (0.66-1.25) mg/dL Estimated GFR > 60 (>60) mL/min BUN/Creatinine Ratio 47.8 H (6-22) Glucose 433 H D (80-110) mg/dL Calcium 8.6 (8.4-10.2) mg/dL Magnesium 2.1 (1.6-2.3) mg/dL Total Bilirubin 0.9 (0.2-1.3) mg/dL AST 27 (17-59) IU/L ALT 28 (<50) IU/L Alkaline Phosphatase 98 (38-126) U/L Total Protein 6.6 (6.3-8.2) g/dL Albumin 3.4 L (3.5-5.0) g/dL Globulin 3.2 (1.7-4.1) g/dL Albumin/Globulin Ratio 1.1 (1.0-2.8) Lipase 69 (23-300) U/L Ketones > 3.50 H (<0.27) mmol/L Point of Care Testing Glucose POC [address] scan - head: My Impression: Preliminary review: No acute intracranial pathology CTA - brain/neck: Radiologist Impression: Preliminary review: 90% left ICA stenosis MDM Narrative Medical decision making narrative: Patient presenting for reports of weakness, right greater than left, following his discharge from the hospital several days ago. Patient is outside of any stroke alert window due to onset of symptoms greater than 24 hours. On my exam I do not appreciate any focal weakness, patient seems globally weak, but right equal compared to the left. No facial droop, slurred speech, or ataxia. Patient hyperglycemic EN route by EMS, point of care glucose 424 on arrival. Respiratory therapy notified to obtain VBG. VBG shows normal pH despite elevated blood glucose, not currently in DKA. Laboratory work shows leukocytosis with WBC count 15.4, hemoglobin 15.4, platelets 358, sodium 131, potassium 5.3, creatinine 0.92, glucose 433, CO2 18. Ketones positive. PH 7.4 on VBG. Patient received a L of IV fluids as well as [address] brain shows no acute abnormalities, however CT angio shows 90% stenosis of left internal carotid artery. With reported weakness on the right-hand side and high-grade stenosis call placed to [facility] for consult. Case discussed with of neurology at [place]. Recommended MRI prior to any dispo decisions. If there are findings of acute stroke on MRI then discussion should be had about potential transfer to expedite for intervention, however if there is no evidence of acute stroke on MRI then medical management would likely be indicated only. Recommended full-dose aspirin and continuous hydration. MRI ordered for the morning. Dr pierce: Received turned over. Review patient's history and physical and workup up to this point. His MRI today shows no acute stroke. I happened in contact with the neurologist at [facility] who state that despite the lack of an acute stroke given his weakness and he is having and the amount of stenosis that he was having in the carotid artery they do recommend transfer to discuss potential revascularization. Patient was given a Plavix. There are no beds available at the [facility] so the plan will be is the patient's stay in the emergency department this evening with anticipation of transfer tomorrow. Care turned over to Dr. Fountain to continue to observe until disposition. Dr To - no events overnight. Care returned to Dr. Pierce in the am. Dr pierce: 04/05/24 assumed care of patient once again this morning. Patient has had no overnight events. Discussed the case again with the Neurology Service at [facility] who still recommends patient be transferred for discussion about Re cannulization of his stenosis. They have accepted the patient for transfer. Dr. Fontenot accepting physician. Patient is stable for transport. <Julio Pierce DO - Last Filed: 04/05/24 08:35> Lab Data Labs: Lab Results 04/04/24 04/04/24 Range/Units 00:55 01:24 WBC 15.4 H (4.5-11.0) X10^3/uL RBC 5.40 (4.5-5.9) X10^6/uL Hgb 15.4 (13.5-17.5) g/dL Hct 47.2 (41-53) % MCV 87.4 (80-100) fL MCH 28.6 (26-34) PG MCHC 32.7 (30-36) % RDW 13.0 (11.6-14.8) % Plt Count 358 (150-400) X10^3/uL Neut % (Auto) 77.8 H (50-75) % Lymph % (Auto) 13.5 L (25-40) % [place] % (Auto) 7.7 (3-14) % Eos % (Auto) 0.4 L (2-4) % Baso % (Auto) 0.6 (0-2) % Neut # (Auto) 91730 H (2872-2554) /uL Lymph # (Auto) 2100 (0892-1946) /uL [place] # (Auto) 1200 H (0-900) /uL Eos # (Auto) 100 (0-450) /uL Baso # (Auto) 100 (0-100) /uL VBG pH 7.41 (7.33-7.43) VBG pCO2 28.5 L (45-50) mmHg VBG pO2 45 (35-45) mmHg VBG HCO3 18 L (24-28) mmol/L VBG Total CO2 17 L (24-29) mmol/L VBG O2 Saturation 82 H (70-75) % VBG Base Excess -5.0 L (0-4) mmol/L FiO2 21 Sodium 131 L (137-145) mmol/L Potassium 5.3 H (3.4-5.1) mmol/L Chloride 100 (98-107) mmol/L Carbon Dioxide 18 L (22-32) mmol/L BUN 44 H (9-20) mg/dL Creatinine 0.92 (0.66-1.25) mg/dL Estimated GFR > 60 (>60) mL/min BUN/Creatinine Ratio 47.8 H (6-22) Glucose 433 H D (80-110) mg/dL Calcium 8.6 (8.4-10.2) mg/dL Magnesium 2.1 (1.6-2.3) mg/dL Total Bilirubin 0.9 (0.2-1.3) mg/dL AST 27 (17-59) IU/L ALT 28 (<50) IU/L Alkaline Phosphatase 98 (38-126) U/L Total Protein 6.6 (6.3-8.2) g/dL Albumin 3.4 L (3.5-5.0) g/dL Globulin 3.2 (1.7-4.1) g/dL Albumin/Globulin Ratio 1.1 (1.0-2.8) Lipase 69 (23-300) U/L Ketones > 3.50 H (<0.27) mmol/L Point of Care Testing Glucose POC 290 Imaging Data Brain MRI: Radiologist Impression: PROCEDURE: MR HEAD/BRAIN WO CON INDICATIONS: RUE WEAKNESS X 2 DAYS, L ICA STENOSIS TECHNIQUE: Non-contrast axial T1 spin echo, axial T2 fast spin echo, sagittal and axial FLAIR, coronal T2 fast spin echo, axial gradient echo, axial diffusion and ADC through the brain. COMPARISON: [facility], CT, CT HEAD/BRAIN WO CON, 04/04/2024, 1:44. [facility], CT, CT ANGIO HEAD AND NECK, 04/04/2024, 1:44. FINDINGS: Image quality: Excellent. CSF spaces: Ventricles appear symmetric in size and shape. Basal cisterns are patent. No extra-axial fluid collections. Brain: No intracranial bleeds or mass effects. There is mild cerebral volume loss for age. There are mild periventricular and deep white matter chronic small vessel ischemic changes. Brainstem appears normal. Diffusion-weighted images show no acute infarct. 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 Confluent increased T2 signal in the left frontal and parietal subcortical white matter without associated significant mass effect. Normal intravascular flow voids are present. Skull and face: Calvarial bone marrow is normal in signal. Orbits are normal. Sinuses: Sinuses and mastoids are clear. IMPRESSION: No acute infarcts. Small chronic left frontal-parietal and right parietal infarcts. Confluent increased T2 signal in the left frontal-parietal subcortical white matter which could represent gliosis related to infarcts, however other etiologies including infiltrating neoplasm and cerebritis could produce a similar appearance. Recommend MRI of the brain with contrast for additional evaluation. [facility] Narrative Medical decision making narrative: Patient presenting for reports of weakness, right greater than left, following his discharge from the hospital several days ago. Patient is outside of any stroke alert window due to onset of symptoms greater than 24 hours. On my exam I do not appreciate any focal weakness, patient seems globally weak, but right equal compared to the left. No facial droop, slurred speech, or ataxia. Patient hyperglycemic EN route by EMS, point of care glucose 424 on arrival. Respiratory therapy notified to obtain VBG. VBG shows normal pH despite elevated blood glucose, not currently in DKA. Laboratory work shows leukocytosis with WBC count 15.4, hemoglobin 15.4, platelets 358, sodium 131, potassium 5.3, creatinine 0.92, glucose 433, CO2 18. Ketones positive. PH 7.4 on VBG. Patient received a L of IV fluids as well as [address] brain shows no acute abnormalities, however CT angio shows 90% stenosis of left internal carotid artery. With reported weakness on the right-hand side and high-grade stenosis call placed to [facility] for consult. Case discussed with of neurology at [place]. Recommended MRI prior to any dispo decisions. If there are findings of acute stroke on MRI then discussion should be had about potential transfer to expedite for intervention, however if there is no evidence of acute stroke on MRI then medical management would likely be indicated only. Recommended full-dose aspirin and continuous hydration. MRI ordered for the morning. Dr pierce: Received turned over. Review patient's history and physical and workup up to this point. His MRI today shows no acute stroke. I happened in contact with the neurologist at [facility] who state that despite the lack of an acute stroke given his weakness and he is having and the amount of stenosis that he was having in the carotid artery they do recommend transfer to discuss potential revascularization. Patient was given a Plavix. There are no beds available at the [facility] so the plan will be is the patient's stay in the emergency department this evening with anticipation of transfer tomorrow. Care turned over to Dr. Fountain to continue to observe until disposition. Dr pierce: 04/05/24 assumed care of patient once again this morning. Patient has had no overnight events. Discussed the case again with the Neurology Service at [facility] who still recommends patient be transferred for discussion about Re cannulization of his stenosis. They have accepted the patient for transfer. Dr. Fontenot accepting physician. Patient is stable for transport. Discharge Plan Departure Patient Disposition: [facility] Clinical Impression: Carotid artery stenosis, Weakness, Diabetes Prescriptions: No Action atorvastatin 80 mg tablet 80 mg PO DAILY Patient Comments: TAKE 1 TABLET BY MOUTH ONCE DAILY pantoprazole 40 mg tablet,delayed release (DR/EC) 40 mg PO DAILY Rx Instructions: ran out 3 days ago Levemir U-100 Insulin 100 unit/mL solution 40 unit SUBCUT BID Patient Comments: INJECT 40 UNITS SUBCUTANEOUSLY TWICE DAILY NEEDED lisinopril 10 mg tablet 10 mg PO DAILY Patient Comments: TAKE 1 TABLET BY MOUTH ONCE DAILY Eliquis 5 mg tablet 5 mg PO BID Referrals: Amaya Jackson ARNP [Primary Care Provider] -
--- NOTE | 2024-04-04 00:55 | EKG_ITS ---
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
[2024-04-04 01:14] LABS: Add Manual Diff / Slide Review NO; Basophils Absolute Auto 100 /uL (0-100); Basophils Percent Auto 0.6 % (0-2); Eosinophils Absolute Auto 100 /uL (0-450); Eosinophils Percent Auto 0.4 % (2-4); Hematocrit 47.2 % (41-53); Hemoglobin 15.4 g/dL (13.5-17.5); Lymphocytes Absolute Auto 2100 /uL (1100-4500); Lymphocytes Percent Auto 13.5 % (25-40); Mean Corpuscular HGB Conc 32.7 % (30-36); Mean Corpuscular Hemoglobin 28.6 PG (26-34); Mean Corpuscular Volume 87.4 fL (80-100); Monocytes Absolute Auto 1200 /uL (0-900); Monocytes Percent Auto 7.7 % (3-14); Neutrophils Absolute Auto 12000 /uL (1500-7000); Neutrophils Percent Auto 77.8 % (50-75); Platelet Count 358 X10^3/uL (150-400); White Blood Cell Count 15.4 X10^3/uL (4.5-11.0)
[2024-04-04 01:20] LABS: Alanine Aminotransferase 28 IU/L (<50); Albumin 3.4 g/dL (3.5-5.0); Albumin Globulin Ratio 1.1 (1.0-2.8); Alkaline Phosphatase 98 U/L (38-126); Aspartate Aminotransferase 27 IU/L (17-59); BUN Creatinine Ratio 47.8 (6-22); Bilirubin Total 0.9 mg/dL (0.2-1.3); Blood Urea Nitrogen 44 mg/dL (9-20); Calcium 8.6 mg/dL (8.4-10.2); Carbon Dioxide 18 mmol/L (22-32); Chloride 100 mmol/L (98-107); Estimated Glomerular Filt Rate > 60 mL/min (>60); Globulin 3.2 g/dL (1.7-4.1); Glucose 433 mg/dL (80-110); Lipase 69 U/L (23-300); Magnesium 2.1 mg/dL (1.6-2.3); Potassium 5.3 mmol/L (3.4-5.1); Sodium 131 mmol/L (137-145); Total Protein 6.6 g/dL (6.3-8.2)
[2024-04-04] MEDS: PROCHLORPERAZINE 10 MG/2 ML VIAL 5 MG IV (01:34)
[2024-04-04] MEDS: SODIUM CHLORIDE 0.9% 1,000 ML 1000 ML IV ×2 (01:36→03:31)
--- NOTE | 2024-04-04 01:38 | DI.CT.S_ITS ---
PROCEDURE: CT HEAD/BRAIN WO CON INDICATIONS: R SIDED WEAKNESS X 2-3 DAYS TECHNIQUE: Noncontrast 4.5 mm thick angled axial sections acquired from the foramen magnum to the vertex, with coronal and sagittal reformats. For radiation dose reduction, the following was used: automated exposure control, adjustment of mA and/or kV according to patient size. COMPARISON: None. FINDINGS: Image quality: Diagnostic. CSF spaces: Basal cisterns are patent. No extra-axial fluid collections. The ventricles are symmetric in size and shape. Brain: Areas of hypoattenuation with left frontal and parietal lobes peripherally. No intracranial bleeds or masses. There is cerebral volume loss for age, with resultant ventricular and sulcal prominence. There are periventricular and deep white matter chronic small vessel ischemic changes. There is intracranial internal carotid artery atherosclerosis. Skull and face: Calvarium and visualized facial bones appear intact, without suspicious lesions. Sinuses: Visualized sinuses and mastoids are clear. IMPRESSION: Areas of hypoattenuation are seen within the left frontal and parietal lobes more peripherally. While these may represent chronic encephalomalacia, subacute infarct is not entirely excluded. At the time of dictation, MRI brain has been ordered for further evaluation. Dictated by: Kennedy Benson M.D. on 04/04/2024 at 8:35 Approved by: Kennedy Benson M.D. on 04/04/2024 at 8:38
--- NOTE | 2024-04-04 01:38 | DI.CT.S_ITS ---
PROCEDURE: CT ANGIO HEAD AND NECK INDICATIONS: R SIDED WEAKNESS X 2-3 DAYS TECHNIQUE: After the administration of intravenous contrast, 1 mm thick sections acquired from the aortic arch through the [place] of [place]. 3-dimensional laujwki-ydqxzrpat-tmsmtbugub (MIP) and/or volume rendering reformats were acquired of the central intracranial vasculature and neck separately. For radiation dose reduction, the following was used: automated exposure control, adjustment of mA and/or kV according to patient size. COMPARISON: None. FINDINGS: Image quality: Diagnostic. BRAIN: Please refer to same day CT of the head. HEAD CT ANGIOGRAPHY: Anterior circulation: Intracranial internal carotid arteries demonstrate atherosclerotic calcifications with areas of mild to moderate stenosis. At least moderate stenosis involving the left cavernous segment. The flow within the paired anterior cerebral arteries is normal and symmetric. The flow within the middle cerebral arteries is normal and symmetric. The anterior communicating artery is seen. No aneurysms are seen. Posterior circulation: Visualized portions of the vertebral arteries demonstrate normal caliber, and join to form a normal appearing basilar artery. Flow within the posterior cerebral arteries is normal and symmetric. No aneurysms are seen. NECK CT ANGIOGRAPHY: Carotid system: The great vessels demonstrate a conventional anatomy as they arise from the aortic arch. The origins of the common carotid arteries appear patent. Moderate stenosis of the left common carotid artery, approximately 50%. Mild narrowing of the right common carotid artery origin. Coarse calcifications of the bilateral carotid bulbs. There is severe stenosis, approximately 90% of the left proximal ICA. High-grade stenosis of the right proximal ICA, greater than 70%. Posterior circulation: The origins of the vertebral arteries both appear widely patent. The more superior extracranial portions of both vertebral arteries also demonstrate normal courses and calibers. They join to form a normal appearing basilar artery. Soft tissues: Visualized neck soft tissues demonstrate no suspicious abnormalities. Bones: No suspicious bony lesions. Visualized cervical spine appears normally aligned. IMPRESSION: No large vessel occlusion. Atherosclerotic calcifications of the bilateral intracranial internal carotid arteries with at least moderate stenosis involving the left cavernous segment. Coarse calcifications of the bilateral carotid bifurcations with high-grade stenosis of the proximal internal carotid arteries bilaterally, approximately 90% on the left and greater than 70% on the right. 50% narrowing of the left common carotid artery. Findings are concordant with preliminary interpretation provided by [facility]. Any quantitative measurements of stenosis were performed using NASCET criteria. Dictated by: Kennedy Benson M.D. on 04/04/2024 at 8:38 Approved by: Kennedy Benson M.D. on 04/04/2024 at 8:46
[2024-04-04 01:44] LABS: HEMOLYSIS 100 (0-50)
[2024-04-04 01:48] LABS: Fractionated Inspired Oxygen 21; HCO3 VBG 18 mmol/L (24-28); Oxygen Saturation VBG 82 % (70-75); PCO2 VBG 28.5 mmHg (45-50); PO2 VBG 45 mmHg (35-45); Total CO2 VBG 17 mmol/L (24-29); pH VBG 7.41 (7.33-7.43)
[2024-04-04] MEDS: INSULIN REGULAR 100 UNIT/ML 3 ML VIAL 10 UNIT IV ×2 (02:09→15:39)
[2024-04-04] MEDS: LIDOCAINE VISCOUS 2% 15 ML SOLUTION PO (02:09)
[2024-04-04] MEDS: MAG HYDROX/ALUM/SIMETH 30 ML UDC PO (02:09)
[2024-04-04 02:47] LABS: Ketones (Beta-Hydroxybutyrate) > 3.50 mmol/L (<0.27)
--- NOTE | 2024-04-04 02:54 | DI.MRI.S_ITS ---
PROCEDURE: MR HEAD/BRAIN WO CON INDICATIONS: RUE WEAKNESS X 2 DAYS, L ICA STENOSIS TECHNIQUE: Non-contrast axial T1 spin echo, axial T2 fast spin echo, sagittal and axial FLAIR, coronal T2 fast spin echo, axial gradient echo, axial diffusion and ADC through the brain. COMPARISON: [facility], CT, CT HEAD/BRAIN WO CON, 04/04/2024, 1:44. [facility], CT, CT ANGIO HEAD AND NECK, 04/04/2024, 1:44. FINDINGS: Image quality: Excellent. CSF spaces: Ventricles appear symmetric in size and shape. Basal cisterns are patent. No extra-axial fluid collections. Brain: No intracranial bleeds or mass effects. There is mild cerebral volume loss for age. There are mild periventricular and deep white matter chronic small vessel ischemic changes. Brainstem appears normal. Diffusion-weighted images show no acute infarct. 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 Confluent increased T2 signal in the left frontal and parietal subcortical white matter without associated significant mass effect. Normal intravascular flow voids are present. Skull and face: Calvarial bone marrow is normal in signal. Orbits are normal. Sinuses: Sinuses and mastoids are clear. IMPRESSION: No acute infarcts. Small chronic left frontal-parietal and right parietal infarcts. Confluent increased T2 signal in the left frontal-parietal subcortical white matter which could represent gliosis related to infarcts, however other etiologies including infiltrating neoplasm and cerebritis could produce a similar appearance. Recommend MRI of the brain with contrast for additional evaluation. Dictated by: Carlota Ulloa MD, PhD on 04/04/2024 at 11:23 Approved by: Carlota Ulloa MD, PhD on 04/04/2024 at 11:30
[2024-04-04] MEDS: ASPIRIN 81 MG CHEW TAB 324 MG PO (03:31)
[2024-04-04] MEDS: CLOPIDOGREL 75 MG TABLET 300 MG PO (08:02)
[2024-04-04] MEDS: PANTOPRAZOLE 40 MG VIAL IV (08:40)
[2024-04-04] MEDS: INSULIN GLARGINE 100 UNIT/ML 3ML PEN 40 UNIT SUBCUT (13:14)
[2024-04-04] MEDS: SODIUM CHLORIDE 0.9% 1,000 ML 100 ML IV (15:38)
[2024-04-04] MEDS: INSULIN REGULAR 100 UNIT/ML 3 ML VIAL 15 UNIT IV (17:19)
--- NOTE | 2024-04-04 17:48 | PC.NURSE ---
Pt throwing items off his dinner tray out of frustration of not being able to get the straw through the lid of his water. RN explained that is no acceptable behavior while in the hospital. Pt continues to eat dinner, will monitor pt for any aggressive behaviors.
[2024-04-04] MEDS: ONDANSETRON 4 MG ODT SL (20:56)
--- NOTE | 2024-04-04 21:00 | PC.NURSE ---
Pt requesting something for nausea and wants to have BG checked. Verbal order received for ODT Zofran 4 mg. Medicated for nausea.
[2024-04-05] VITALS (21 sets, daily range): BP systolic 131–155; BP diastolic 71–92; PULSE 74–90; RESP 11–21; O2SAT 95–99
[2024-04-05] MEDS: ACETAMINOPHEN 325 MG TABLET 650 MG PO (04:08)
--- NOTE | 2024-04-05 08:39 | PC.NURSE ---
Patient accepted by [facility] by Dr. Fontenot. Patient will travel via [facility] with a pecan picker of [phone]. Notified Fabian from [facility] transfer station about patients pecan picker time.
[2024-04-05] MEDS: PROCHLORPERAZINE 10 MG/2 ML VIAL 5 MG IV (09:06)
[2024-04-05] MEDS: OXYCODONE/ACETAMINOPHEN 5/325 TABLET 1 TAB PO (09:06)
== END 2024-04-05 09:31 | disposition short-term general hospital (02) ==
PROVIDERS: Emergency Medicine; Emergency Provider Emergency Medicine; PCP Nurse Practitioner
DX: I65.29 Occlusion and stenosis of unspecified carotid artery (principal); R53.1 Weakness; E11.9 Type 2 diabetes mellitus without complications; Z86.79 Personal history of other diseases of the circulatory system; Z79.899 Other long term (current) drug therapy; Z79.01 Long term (current) use of anticoagulants
CPT/HCPCS: 36415; 70450; 70496; 70498; 70551; 80053; 82009; 82805; 82962; 83690; 83735; 85025; 93005; 96361; 96372; 96374; 96375; 96376; 99285; J0780; J2470; Q9967

== ENCOUNTER 2024-04-14 13:23 | Observation (INO) | payer OTHER, MEDICAID, SELFPAY ==
[2024-04-04 19:07] VITALS: BMI 29.7
[2024-04-14] VITALS (16 sets, daily range): BP systolic 117–144; BP diastolic 69–84; PULSE 67–81; RESP 9–22; TEMP 36.1–37.1; O2SAT 93–99; BMI 32.6
--- NOTE | 2024-04-14 13:47 | ED_ITS ---
HPI - Abdominal Pain General Chief Complaint: Abdominal Pain Stated Complaint: constipation/high Blood sugar Time Seen by Provider: 04/14/24 13:46 Source: patient, EMS, RN notes reviewed and old records reviewed Mode of arrival: EMS Limitations: no limitations History of Present Illness HPI narrative: 63-year-old male with a history of type 1 diabetes, hypertension, dyslipidemia prior stroke presents via EMS for constipation and hyperglycemia. Had a recent admission earlier in the month from the through the for DKA, was seen here on the and transferred for reaccumulation of carotid artery stenosis to [facility]. Patient presents with complaint of abdominal discomfort which describes as mild and constipation. States he had a few small pellets of stool yesterday but not a real bowel movement since his discharge. States he has not been taking any narcotics for pain. States he is taking aspirin and Tylenol PRN for discomfort. States he has been able to urinate denies any dysuria urgency or frequency. Denies any fevers. States he has not noticed any swelling or irritation in his neck at his surgical site. Denies any new chest pain or shortness of breath. Patient states his abdomen is maybe mildly distended. He has not been taking anything to help him have bowel movements. Denies any new back or flank pain. Patient states he has been taking his medications as prescribed at discharge. He isn't insulin-dependent diabetic states he did 40 units of Levemir twice daily and been doing 15 units of his short-acting insulin 3 times daily with meals. He states he has not able to do the fine motor skills for a glucometer so he just gases on his short-acting insulin. He also states he has probably missed his Levemir dose at least once today and may have missed some of his short-acting insulin. He states that he is taking his other medications regularly. He does have a tele visit for his surgery scheduled on the 02 of May. Primary care is through [facility]. Related Data Home Medications Medication Instructions Recorded Confirmed atorvastatin 80 mg tablet 80 mg PO DAILY 06/20/22 04/14/24 insulin detemir U-100 100 unit/mL 40 unit SUBCUT BID 06/20/22 04/14/24 subcutaneous solution (Levemir U-100 Insulin) lisinopril 10 mg tablet 10 mg PO DAILY 06/20/22 04/14/24 pantoprazole 40 mg tablet,delayed 40 mg PO DAILY 06/20/22 04/14/24 release acetaminophen 325 mg tablet 650 mg PO Q6H PRN Pain (Scale 04/14/24 04/14/24 (Tylenol) Score 4-6) aspirin 325 mg capsule 650 mg PO DAILY 04/14/24 04/14/24 Allergies Allergy/AdvReac Type Severity Reaction Status Date / Time fentanyl AdvReac Verified 02/08/22 11:13 hydrocodone AdvReac ITCHING Verified 04/14/24 13:46 oxycodone AdvReac ITCHING Verified 04/14/24 13:46 Review of Systems Review of Systems ROS Unobtainable: All systems reviewed & are unremarkable except as noted in HPI and below Patient History Medical History Stroke Hyperlipidemia Hypertension Type 1 diabetes Social History household members: family Smoking Status: Former smoker alcohol intake: current Smoking Status: Former smoker alcohol intake frequency: 0-2 drinks per day Substance Use Type: marijuana Exam Narrative Exam Narrative: GEN: Male, alert and oriented x 3, patient appears to be in mild distress. HEENT: Atraumatic, pupils are equal round reactive to light, extraocular movements are intact, nares are clear, TMs are clear with no fluid, there is no conjunctival pallor. Throat is clear without any exudates, erythema, tonsillar enlargement or uvular deviation, patient has left lateral neck excision extending to the upper clavicle that appears clean dry and intact Steri-Strips are still in place. No signs of infection erythema or drainage. Wound appears to be healing appropriately. HEART: Regular rate and rhythm without murmur, clicks, rubs. Pulses are equal in upper and lower extremities LUNGS:Lungs clear to auscultation, no wheezes, rales, crackles, chest moves symmetrically, no tachypnea accessory muscle use ABD:bowel sounds normal, soft, slightly distended, non-tender, no guarding, rebound, rigidity, no masses noted, no hepatosplenomegaly :No CVA tenderness MSCL: Non-tender, no muscle atrophy, muscles strength 5/5 upper and lower extremities, full range of motion, normal gait NEURO:CN 2-12 intact, sensation normal SKIN: No rash, erythema or other skin changes Initial Vital Signs Initial Vital Signs: Vital Signs Pulse Rate 80 04/14/24 13:30 Respiratory Rate 20 04/14/24 13:30 Blood Pressure 125/84 04/14/24 13:30 Pulse Oximetry 98 04/14/24 13:30 Course Orders Ordered: Discontinued Medications Acetaminophen (Acetaminophen 325 Mg Tablet) 975 mg PO NOW ONE Stop: 04/14/24 14:05 Last Admin: 04/14/24 14:35 Dose: 975 mg Documented By: KASI Acetaminophen (Acetaminophen 325 Mg Tablet) 650 mg PO Q6H PRN PRN Reason: Fever/Mild Pain (1-3) Last Admin: 04/14/24 23:08 Dose: 650 mg Documented By: GAL Aspirin (Aspirin Ec 325 Mg Tablet) 650 mg PO DAILY [facility] Last Admin: 04/15/24 09:17 Dose: 650 mg Documented By: RAHUL Atorvastatin Calcium (Atorvastatin 20 Mg Tablet) 80 mg PO DAILY [facility] Last Admin: 04/15/24 09:17 Dose: 80 mg Documented By: RAHUL Bisacodyl (Bisacodyl 10 Mg Supp) 10 mg AL DAILY PRN PRN Reason: Constipation Docusate Sodium (Docusate 100 Mg Capsule) 100 mg PO BID [facility] Last Admin: 04/15/24 09:16 Dose: 100 mg Documented By: Admin: 04/14/24 20:59 Dose: 100 mg Documented By: GAL Sodium Chloride (Normal Saline 0.9%) 1,000 mls @ 1,000 mls/hr IV BOLUS ONE Stop: 04/14/24 15:03 Last Infusion: 04/14/24 15:43 Dose: Infused Documented By: Infusion: 04/14/24 15:28 Dose: 1,000 mls/hr Documented By: Admin: 04/14/24 14:33 Dose: 1,000 mls/hr Documented By: KASI Insulin Glargine (Insulin Glargine 100 Unit/Ml 3ml Pen) 40 unit SUBCUT BID [facility] Last Admin: 04/15/24 08:53 Dose: 40 unit Documented By: RAHUL Co-signed By: NORTH Admin: 04/14/24 20:58 Dose: 40 unit Documented By: GAL Co-signed By: AT Insulin Human Lispro (Insulin Lispro 100 Unit/Ml 3ml Vial) [facility]; Protocol Insulin Human Lispro (Insulin Lispro 100 Unit/Ml 3ml Vial) 0 unit SUBCUT [facility]; Protocol Last Admin: 04/15/24 12:16 Dose: 7 unit Documented By: RAHUL Co-signed By: NORTH Admin: 04/15/24 08:52 Dose: 4 unit Documented By: RAHUL Co-signed By: NORTH Admin: 04/14/24 20:58 Dose: 7 unit Documented By: FM Co-signed By: AT Insulin Human Regular (Insulin Regular 100 Unit/Ml 3 Ml Vial) 10 unit SUBCUT NOW ONE Stop: 04/14/24 15:18 Last Admin: 04/14/24 15:32 Dose: 10 unit Documented By: KASI Co-signed By: OSMAN Lisinopril (Lisinopril 10 Mg Tablet) 10 mg PO DAILY [facility] Last Admin: 04/15/24 09:16 Dose: 10 mg Documented By: RAHUL Magnesium Hydroxide (Magnesium Hydroxide 30 Ml Udc) 30 ml PO DAILY PRN PRN Reason: Constipation Last Admin: 04/14/24 18:53 Dose: 30 ml Documented By: AIDA Morphine Sulfate (Morphine 4 Mg/Ml Inj) 4 mg IV NOW ONE Stop: 04/14/24 15:55 Last Admin: 04/14/24 16:18 Dose: 4 mg Documented By: KASI Morphine Sulfate (Morphine 2 Mg/Ml Inj) 2 mg IV Q2HR PRN PRN Reason: Headache Last Admin: 04/15/24 09:17 Dose: 2 mg Documented By: RAHUL Naloxone HCl (Naloxone 0.4 Mg/Ml Vial) 0.2 mg IV Q2MIN PRN PRN Reason: Opiate Reversal Non-Formulary Medication (Insulin Detemir U-100 [Levemir U-100 Insulin]) 40 unit SUBCUT BID [facility] Ondansetron HCl (Ondansetron 4 Mg/2 Ml Inj) 4 mg IV NOW PRN PRN Reason: Nausea And Vomiting Last Admin: 04/14/24 14:33 Dose: 4 mg Documented By: KASI Ondansetron HCl (Ondansetron 4 Mg Odt) 4 mg PO NOW PRN PRN Reason: Nausea And Vomiting Ondansetron HCl (Ondansetron 4 Mg/2 Ml Inj) 4 mg IV Q8HR PRN PRN Reason: Nausea And Vomiting Pantoprazole Sodium (Pantoprazole Dr 40 Mg Tablet) 40 mg PO DAILY [facility] Last Admin: 04/15/24 09:17 Dose: 40 mg Documented By: CLP Sodium Biphosphate/Sodium Phosphate (Fleets Enema) 1 each AL PRN PRN PRN Reason: Constipation Last Admin: 04/14/24 20:33 Dose: 1 each Documented By: GAL Vital Signs Vital signs: Vital Signs - 8 hr 04/14/24 13:34 Temperature 98.7 F Pulse Rate 78 Blood Pressure 120/78 Pulse Oximetry 99 Oxygen Delivery Method Room Air MDM - Abdominal Pain Lab Data 04/15/24 05:00 04/15/24 05:00 Labs: Lab Results 04/14/24 04/14/24 04/14/24 Range/Units 13:30 13:38 13:52 WBC 7.7 (4.5-11.0) X10^3/uL RBC 3.85 L (4.5-5.9) X10^6/uL Hgb 11.1 L (13.5-17.5) g/dL Hct 33.3 L (41-53) % MCV 86.4 (80-100) fL MCH 28.9 (26-34) PG MCHC 33.4 (30-36) % RDW 13.3 (11.6-14.8) % Plt Count 304 (150-400) X10^3/uL Neut % (Auto) 62.8 (50-75) % Lymph % (Auto) 21.6 L (25-40) % [place] % (Auto) 13.7 (3-14) % Eos % (Auto) 1.2 L (2-4) % Baso % (Auto) 0.7 (0-2) % Neut # (Auto) 4800 (6544-3471) /uL Lymph # (Auto) 1700 (2568-2473) /uL [place] # (Auto) 1000 H (0-900) /uL Eos # (Auto) 100 (0-450) /uL Baso # (Auto) 100 (0-100) /uL VBG pH 7.50 H (7.33-7.43) VBG pCO2 33.7 L (45-50) mmHg VBG pO2 40 (35-45) mmHg VBG HCO3 26 (24-28) mmol/L VBG Total CO2 26 (24-29) mmol/L VBG O2 Saturation 81 H (70-75) % VBG Base Excess 3.3 (0-4) mmol/L FiO2 21 Sodium 126 L (137-145) mmol/L Potassium 4.7 (3.4-5.1) mmol/L Chloride 97 L (98-107) mmol/L Carbon Dioxide 25 (22-32) mmol/L BUN 31 H (9-20) mg/dL Creatinine 0.63 L (0.66-1.25) mg/dL Estimated GFR > 60 (>60) mL/min BUN/Creatinine Ratio 49.2 H (6-22) Glucose 440 H (80-110) mg/dL Calcium 8.1 L (8.4-10.2) mg/dL Total Bilirubin 0.3 (0.2-1.3) mg/dL AST 27 (17-59) IU/L ALT 29 (<50) IU/L Alkaline Phosphatase 103 (38-126) U/L Total Creatine Kinase 47 L (55-170) U/L Troponin I < 0.012 (0.01-0.034) ng/mL Total Protein 5.6 L (6.3-8.2) g/dL Albumin 2.9 L (3.5-5.0) g/dL Globulin 2.7 (1.7-4.1) g/dL Albumin/Globulin Ratio 1.1 (1.0-2.8) Lipase 85 (23-300) U/L Urine Color Urine Appearance Urine pH (4.5-8.0) Ur Specific Raymond (1.000-1.035) Urine Protein (Negative) Urine Glucose (UA) (Negative) g/dL Urine Ketones (NEGATIVE) Urine Occult Blood (Negative) Urine Nitrate (Negative) Urine Bilirubin (NEGATIVE) Urine Urobilinogen (0.2) E.U./dL Ur Leukocyte Esterase (NEGATIVE) Urine RBC (0-5/HPF) Urine WBC (0-5/HPF) Ur Squamous Epith Cells (0-5/HPF) Urine Bacteria (None) Ur Culture Indicated? Vol Urine Centrifuged 04/14/24 04/14/24 Range/Units 15:12 16:23 WBC (4.5-11.0) X10^3/uL RBC (4.5-5.9) X10^6/uL Hgb (13.5-17.5) g/dL Hct (41-53) % MCV (80-100) fL MCH (26-34) PG MCHC (30-36) % RDW (11.6-14.8) % Plt Count (150-400) X10^3/uL Neut % (Auto) (50-75) % Lymph % (Auto) (25-40) % [place] % (Auto) (3-14) % Eos % (Auto) (2-4) % Baso % (Auto) (0-2) % Neut # (Auto) (5351-1932) /uL Lymph # (Auto) (8769-9673) /uL [place] # (Auto) (0-900) /uL Eos # (Auto) (0-450) /uL Baso # (Auto) (0-100) /uL VBG pH (7.33-7.43) VBG pCO2 (45-50) mmHg VBG pO2 (35-45) mmHg VBG HCO3 (24-28) mmol/L VBG Total CO2 (24-29) mmol/L VBG O2 Saturation (70-75) % VBG Base Excess (0-4) mmol/L FiO2 Sodium (137-145) mmol/L Potassium (3.4-5.1) mmol/L Chloride (98-107) mmol/L Carbon Dioxide (22-32) mmol/L BUN (9-20) mg/dL Creatinine (0.66-1.25) mg/dL Estimated GFR (>60) mL/min BUN/Creatinine Ratio (6-22) Glucose (80-110) mg/dL Calcium (8.4-10.2) mg/dL Total Bilirubin (0.2-1.3) mg/dL AST (17-59) IU/L ALT (<50) IU/L Alkaline Phosphatase (38-126) U/L Total Creatine Kinase (55-170) U/L Troponin I < 0.012 (0.01-0.034) ng/mL Total Protein (6.3-8.2) g/dL Albumin (3.5-5.0) g/dL Globulin (1.7-4.1) g/dL Albumin/Globulin Ratio (1.0-2.8) Lipase (23-300) U/L Urine Color Yellow Urine Appearance Clear Urine pH 7.5 (4.5-8.0) Ur Specific Raymond 1.010 (1.000-1.035) Urine Protein Trace H (Negative) Urine Glucose (UA) 3+ H (Negative) g/dL Urine Ketones Negative (NEGATIVE) Urine Occult Blood Negative (Negative) Urine Nitrate Negative (Negative) Urine Bilirubin Negative (NEGATIVE) Urine Urobilinogen 0.2 (0.2) E.U./dL Ur Leukocyte Esterase Negative (NEGATIVE) Urine RBC None seen (0-5/HPF) Urine WBC None seen (0-5/HPF) Ur Squamous Epith Cells None seen (0-5/HPF) Urine Bacteria None seen (None) Ur Culture Indicated? 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 Allergy/Adv: fentanyl, hydrocodone, oxycodone (More??) Close Abdomen X-Ray (Signed) Abram Reyes - 04/14/24 Brain MRI (Signed) Carlota Ulloa - 04/04/24 Head/Neck CTA (Signed) Kennedy Benson - 04/04/[address] (Signed) Kennedy Benson - 04/04/24 Abdomen/Pelvis CT (Signed) Jb Christine - 03/29/24 Telemetry Strips 03/29/24 Chest X-Ray (Signed) Rolanda Cr - 03/29/24 Telemetry Strips 06/22/22 Telemetry Strips 06/20/22 Abdomen/Pelvis CT (Signed) Arcenio Leno - 06/20/22 Chest X-Ray (Signed) Rodger Angeles - 06/20/22 Humerus X-Ray (Signed) Rodger Angeles - 02/08/22 Chest X-Ray (Signed) Rodger Angeles - 02/08/[address] [address] XRay Report Signed 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 PROCEDURE: XR ABDOMEN 1V INDICATIONS: hyperglycemia, constipation, recent endartectomy TECHNIQUE: One view of the abdomen acquired. COMPARISON: [facility], CT, CT ABDOMEN PELVIS W CON, 03/29/2024, 18:18. FINDINGS: Surgical changes and devices: None. Bowel: Moderate fecal debris in the right colon. No obstruction. Soft tissues: No suspicious abdominal calcifications. Visualized solid organ contours appear normal in size. Bones: No suspicious bony lesions. IMPRESSION: Moderate fecal debris in the right colon without obstruction Approved by: Abram Reyes M.D. on 04/14/2024 at 14:01 ECG Data Attestation: I personally reviewed and interpreted this ECG as follows: Interpretation: Sinus rhythm occasional PVC, rate of 76 AL 170 QRS of 90 QTC of 411. BP EKG shows sinus rhythm left axis deviation rate of 74 AL 172 QRS of 90 QTC of 419, no acute ST elevation depression noted. MDM Narrative Medical decision making narrative: 63-year-old male presents with complaint of constipation but was also found to be in urinary retention. Patient has not been taking any narcotics but did have recent surgery with a carotid endarterectomy of the left was discharged home on Monday. Since then unclear if patient has been taking his insulin appropriately he states he has been taking his other medications but he is hyperglycemic. Does not have a glucometer or he states he is trouble with dexterity would like to get a continuous glucose monitor but has not been set up with 1. He notes he is probably missed at least 1 dose of his long-acting insulin today and possibly other doses of his short-acting. In terms of constipation he does not have any current obstructive symptoms. X-ray does not show any obstructive changes but patient has not been taking anything to assist with bowel movements. Patient was also noted to be in urinary retention and had 700 mL in his bladder catheter was placed. Labs white count of 7.7 hemoglobin of 11.1 was 15 on the 18th but did just have a recent significant surgery platelets were 304. Sodium is 126 but when corrected for hyperglycemia would be 131, potassium is 4.7 with chloride 97 CO2 is 25 with a BUN of 31 and a creatinine of 0.63 glucose is 440, calcium is 8.1 with otherwise normal LFTs and albumin 2.9. Patient's anion gap is 4. Urine shows trace protein 3+ glucose no signs of infection. Suspect urinary retention is associated with patient's constipation. X-ray abdomen shows moderate fecal debris in the right colon without obstruction Patient received a 1L of fluids repeat glucose is 403. Patient received 10 units of regular insulin, patient glucose did improve to 371. Patient then developed chest pain, troponin off initial blood work is negative and repeated at 2 hours is negative. No acute EKG changes. Patient received 4 mg of morphine with improvement of pain. Discussed with patient he is feeling somewhat improved. Denies any other acute neurologic changes. Glucose is improved slightly but after discussion with patient would feel he would benefit from observation to make sure sugars are improving that he has a appropriate home health care follow-up. Spoke with Dr. Loredo who kindly accepts patient for observation. Discharge Plan Departure Patient Disposition: Admitted as Observation Clinical Impression: Hyperglycemia, Constipation, Acute urinary retention Admit Date/Time: 04/14/24 17:59 Admit Provider: Lance Loredo V
--- NOTE | 2024-04-14 13:50 | EKG_ITS ---
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
[2024-04-14 13:53] LABS: Alanine Aminotransferase 29 IU/L (<50); Albumin 2.9 g/dL (3.5-5.0); Albumin Globulin Ratio 1.1 (1.0-2.8); Alkaline Phosphatase 103 U/L (38-126); Aspartate Aminotransferase 27 IU/L (17-59); BUN Creatinine Ratio 49.2 (6-22); Bilirubin Total 0.3 mg/dL (0.2-1.3); Blood Urea Nitrogen 31 mg/dL (9-20); Calcium 8.1 mg/dL (8.4-10.2); Carbon Dioxide 25 mmol/L (22-32); Chloride 97 mmol/L (98-107); Estimated Glomerular Filt Rate > 60 mL/min (>60); Globulin 2.7 g/dL (1.7-4.1); Glucose 440 mg/dL (80-110); HEMOLYSIS < 15 (0-50); Lipase 85 U/L (23-300); Potassium 4.7 mmol/L (3.4-5.1); Sodium 126 mmol/L (137-145); Total Protein 5.6 g/dL (6.3-8.2)
[2024-04-14 13:56] LABS: PCO2 VBG 33.7 mmHg (45-50)
[2024-04-14 13:57] LABS: Base Excess VBG 3.3 mmol/L (0-4); Fractionated Inspired Oxygen 21; HCO3 VBG 26 mmol/L (24-28); Oxygen Saturation VBG 81 % (70-75); PO2 VBG 40 mmHg (35-45); Total CO2 VBG 26 mmol/L (24-29)
[2024-04-14 13:58] LABS: Add Manual Diff / Slide Review NO; Basophils Absolute Auto 100 /uL (0-100); Basophils Percent Auto 0.7 % (0-2); Eosinophils Absolute Auto 100 /uL (0-450); Eosinophils Percent Auto 1.2 % (2-4); Hematocrit 33.3 % (41-53); Hemoglobin 11.1 g/dL (13.5-17.5); Lymphocytes Absolute Auto 1700 /uL (1100-4500); Lymphocytes Percent Auto 21.6 % (25-40); Mean Corpuscular HGB Conc 33.4 % (30-36); Mean Corpuscular Hemoglobin 28.9 PG (26-34); Mean Corpuscular Volume 86.4 fL (80-100); Monocytes Absolute Auto 1000 /uL (0-900); Monocytes Percent Auto 13.7 % (3-14); Neutrophils Absolute Auto 4800 /uL (1500-7000); Neutrophils Percent Auto 62.8 % (50-75); Platelet Count 304 X10^3/uL (150-400); Red Blood Cell Count 3.85 X10^6/uL (4.5-5.9); Red Cell Distribution Width 13.3 % (11.6-14.8); White Blood Cell Count 7.7 X10^3/uL (4.5-11.0)
--- NOTE | 2024-04-14 14:04 | DI.RAD.S_ITS ---
PROCEDURE: XR ABDOMEN 1V INDICATIONS: hyperglycemia, constipation, recent endartectomy TECHNIQUE: One view of the abdomen acquired. COMPARISON: [facility], CT, CT ABDOMEN PELVIS W CON, 03/29/2024, 18:18. FINDINGS: Surgical changes and devices: None. Bowel: Moderate fecal debris in the right colon. No obstruction. Soft tissues: No suspicious abdominal calcifications. Visualized solid organ contours appear normal in size. Bones: No suspicious bony lesions. IMPRESSION: Moderate fecal debris in the right colon without obstruction Approved by: Abram Reyes M.D. on 04/14/2024 at 14:01
[2024-04-14] MEDS: SODIUM CHLORIDE 0.9% 1,000 ML 1000 ML IV (14:33)
[2024-04-14] MEDS: ONDANSETRON 4 MG/2 ML INJ IV (14:33)
[2024-04-14] MEDS: ACETAMINOPHEN 325 MG TABLET 975 MG PO (14:35)
--- NOTE | 2024-04-14 15:15 | PC.NURSE ---
Addendum entered by Cedric Urrutia R.N. 04/14/24 17:23: Pt reporting chest pain just under his sternum. Pt states that it is a burning sensation. ELVIN Hampton advised. Original Note: Pt reporting chest pain in the centre of his chest. pt states that it is a burning sensation. ELVIN Hampton advised.
--- NOTE | 2024-04-14 15:22 | PC.NURSE ---
Pt straight cathed per his request after complaining of increased abdominal pain. Pt bladder scanned and noted 300-326 mLs. Pt tolerated straight cath w 700 mL output. ELVIN Hampton advised.
[2024-04-14] MEDS: INSULIN REGULAR 100 UNIT/ML 3 ML VIAL 10 UNIT SUBCUT (15:32)
--- NOTE | 2024-04-14 15:35 | PC.NURSE ---
Pt stating that his pain has changed from a burning sensation to a sharp pain and moved more centre in his chest. ELVIN Hampton advised, EKG orders, repeat troponin and sugar check orders.
[2024-04-14 15:38] LABS: Appearance Urine UA CLEAR; Bilirubin Urine UA NEGATIVE (NEGATIVE); Color Urine UA YELLOW; Glucose Urine UA 3+ g/dL (Negative); Ketones Urine UA NEGATIVE (NEGATIVE); Leukocyte Esterase Urine UA NEGATIVE (NEGATIVE); Nitrite Urine UA NEGATIVE (Negative); Occult Blood Urine UA NEGATIVE (Negative); Protein Urine UA TRACE (Negative); Urobilinogen Urine UA 0.2 E.U./dL (0.2); pH Urine UA 7.5 (4.5-8.0)
--- NOTE | 2024-04-14 15:39 | EKG_ITS ---
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 Electronically Signed On 04-15-2024 8:47:09 PDT by Kolby Yost
[2024-04-14 15:45] LABS: Bacteria Urine None Seen; Culture Indicated Urine Cult Not Indicated; RBC Urine None Seen (0-5/HPF); Squamous Epithelial Cell Urine None Seen (0-5/HPF); Urine Volume 10mL (spun); WBC Urine None Seen (0-5/HPF)
[2024-04-14 15:57] LABS: Creatine Kinase 47 U/L (55-170)
[2024-04-14 16:10] LABS: Troponin I < 0.012 ng/mL (0.01-0.034)
[2024-04-14] MEDS: MORPHINE 4 MG/ML INJ IV (16:18)
[2024-04-14 16:51] LABS: Troponin I < 0.012 ng/mL (0.01-0.034)
--- NOTE | 2024-04-14 18:22 | P.HP_ITS ---
History of Present Illness History of Present Illness Date Patient Seen: 04/14/24 Chief complaint: constipation/high Blood sugar Narrative: 61-year-old man with type 1 diabetes mellitus, status post left carotid endarterectomy on 04/08/2024 at [facility], presents with constipation and hyperglycemia. He had presented last week with a right-sided TIA and was found to have 90% high-grade left internal carotid artery stenosis, was transferred to [facility] for surgery. He had also been hospitalized for diabetic ketoacidosis on 03/29/2024 and discharged home. He states he has been taking his insulin. He notes lower abdominal discomfort for the past few days, increasing with small pellet-like stools yesterday but no significant bowel movement from discharge home. He is on Levemir 40 units twice daily plus 15 units of short-acting insulin 3 times daily with meals, but does not check blood sugars regularly due to difficulty with fine motor skills checking blood sugars. Surgical follow-up was planned by [facility] on 05/02/2024. In the emergency department he had urinary retention and was catheterized with 750 mL of urine output. [facility] Medical History Stroke Hyperlipidemia Hypertension Type 1 diabetes Social History household members: family Smoking Status: Former smoker alcohol intake: current Meds Home Medications and Allergies Home Medications Medication Instructions Recorded Confirmed Type atorvastatin 80 mg tablet 80 mg PO DAILY 06/20/22 04/14/24 History insulin detemir U-100 100 unit/mL 40 unit SUBCUT BID 06/20/22 04/14/24 History subcutaneous solution (Levemir U-100 Insulin) lisinopril 10 mg tablet 10 mg PO DAILY 06/20/22 04/14/24 History pantoprazole 40 mg tablet,delayed 40 mg PO DAILY 06/20/22 04/14/24 History release acetaminophen 325 mg tablet 650 mg PO Q6H PRN Pain (Scale 04/14/24 04/14/24 History (Tylenol) Score 4-6) aspirin 325 mg capsule 650 mg PO DAILY 04/14/24 04/14/24 History Allergies Allergy/AdvReac Type Severity Reaction Status Date / Time fentanyl AdvReac Verified 02/08/22 11:13 hydrocodone AdvReac ITCHING Verified 04/14/24 13:46 oxycodone AdvReac ITCHING Verified 04/14/24 13:46 Review of Systems Review of Systems ROS: Yes All systems reviewed with the patient and are negative except as otherwise documented Exam Vital Signs (past 8 hours): - 04/14/24 13:34 Temperature 98.7 F Pulse Rate 78 Blood Pressure 120/78 Pulse Oximetry 99 Oxygen Delivery Method Room Air Oxygen Delivery Method Room Air Narrative Exam Narrative: GENERAL: This is a well-nourished, well-developed patient, in no apparent distress. HEAD: Atraumatic. Normocephalic. No temporal or scalp tenderness. EYES: Pupils equal round and reactive. Extraocular motions intact. No scleral icterus. No injection or drainage. ENT: Mucous membranes pink and moist. NECK: Trachea midline. No JVD, bruits or lymphadenopathy. Supple, nontender, no meningeal signs. CARDIOVASCULAR: Regular rate and rhythm without murmurs, gallops, or rubs. RESPIRATORY: Clear to auscultation. GASTROINTESTINAL: Abdomen soft, non-tender, nondistended. EXTREMITIES: No clubbing, cyanosis, or edema. BACK: Nontender without deformity or crepitance. No flank tenderness. NEUROLOGIC: Alert, oriented, speech fluent, full upper and lower motor strength, no focal deficits evident. DERMATOLOGIC: No rashes or skin lesions. Objective ECG Impression: Normal sinus rhythm at 74bpm, left axis deviation, septal infarct Imaging Abdominal x-ray: Radiologist's impression: Moderate fecal debris in the right colon without obstruction Labs 04/14/24 13:30 04/14/24 13:30 Labs: Laboratory Results - last 24 hr 04/14/24 04/14/24 04/14/24 13:30 13:38 13:52 WBC 7.7 RBC 3.85 L Hgb 11.1 L Hct 33.3 L MCV 86.4 MCH 28.9 MCHC 33.4 RDW 13.3 Plt Count 304 Neut % (Auto) 62.8 Lymph % (Auto) 21.6 L [place] % (Auto) 13.7 Eos % (Auto) 1.2 L Baso % (Auto) 0.7 Neut # (Auto) 4800 Lymph # (Auto) 1700 [place] # (Auto) 1000 H Eos # (Auto) 100 Baso # (Auto) 100 VBG pH 7.50 H VBG pCO2 33.7 L VBG pO2 40 VBG HCO3 26 VBG Total CO2 26 VBG O2 Saturation 81 H VBG Base Excess 3.3 FiO2 21 Sodium 126 L Potassium 4.7 Chloride 97 L Carbon Dioxide 25 BUN 31 H Creatinine 0.63 L Estimated GFR > 60 BUN/Creatinine Ratio 49.2 H Glucose 440 H Calcium 8.1 L Total Bilirubin 0.3 AST 27 ALT 29 Alkaline Phosphatase 103 Total Creatine Kinase 47 L Troponin I < 0.012 Total Protein 5.6 L Albumin 2.9 L Globulin 2.7 Albumin/Globulin Ratio 1.1 Lipase 85 Urine Color Urine Appearance Urine pH Ur Specific [place] Urine Protein Urine Glucose (UA) Urine Ketones Urine Occult Blood Urine Nitrate Urine Bilirubin Urine Urobilinogen Ur Leukocyte Esterase Urine RBC Urine WBC Ur Squamous Epith Cells Urine Bacteria Ur Culture Indicated? Vol Urine Centrifuged 04/14/24 04/14/24 15:12 16:23 WBC RBC Hgb Hct MCV MCH MCHC RDW Plt Count Neut % (Auto) Lymph % (Auto) [place] % (Auto) Eos % (Auto) Baso % (Auto) Neut # (Auto) Lymph # (Auto) [place] # (Auto) Eos # (Auto) Baso # (Auto) VBG pH VBG pCO2 VBG pO2 VBG HCO3 VBG Total CO2 VBG O2 Saturation VBG Base Excess FiO2 Sodium Potassium Chloride Carbon Dioxide BUN Creatinine Estimated GFR BUN/Creatinine Ratio Glucose Calcium Total Bilirubin AST ALT Alkaline Phosphatase Total Creatine Kinase Troponin I < 0.012 Total Protein Albumin Globulin Albumin/Globulin Ratio Lipase Urine Color Yellow Urine Appearance Clear Urine pH 7.5 Ur Specific [place] 1.010 Urine Protein Trace H Urine Glucose (UA) 3+ H Urine Ketones Negative Urine Occult Blood Negative Urine Nitrate Negative Urine Bilirubin Negative Urine Urobilinogen 0.2 Ur Leukocyte Esterase Negative Urine RBC None seen Urine WBC None seen Ur Squamous Epith Cells None seen Urine Bacteria None seen Ur Culture Indicated? Cult not indicated Vol Urine Centrifuged 10ml (spun) Assessment & Plan Assessment & Plan narrative: 1. Constipation. Likely postoperative. Advance bowel regimen. 2. Urinary retention due to constipation. Monitor with intermittent bladder scans and in- and out catheterization as needed. 3. Diabetes mellitus, type 1 with history of recent DKA presentation, currently hyperglycemic without ketoacidosis. 4. Status post left carotid endarterectomy 04/08/2024. Clinically stable. Postoperative follow-up planned. 5. Abdominal aortic aneurysm. Incidentally seen on recent CT scan at 3.7 cm. 6. Hypertension. Continue routine lisinopril. 7. Hyperlipidemia. Continue atorvastatin. 8. History of atrial fibrillation, with recent episode on his March 30 hospitalization. Currently in sinus rhythm. Continue to follow. Clarify Eliquis, which appears to have been discontinued since his recent hospitalizations. 9. Right lower extremity 1 cm pressure sore. Monitor. 10. DVT prophylaxis. Place sequential compression devices. 11. Code status: Full code. Plan: -admit to observation -bowel regimen -monitor for urinary retention -continue routine home medications -routine insulin with sliding scale coverage -possible discharge home tomorrow Time-Based Coding :: [TOTAL MINUTES] spent with patient and on the chart (including review of chart, obtaining history, exam, reviewing outside data, placing orders, documenting exam and treatment plan, and counseling patient) on [DATE]. Quality VTE Deep Vein Thrombosis/Pulmonary Embolism Present on Admission: No MIPS - Admit I confirm the patient?s Advance Care Plan is present, Code status is documented, Surrogate decision maker is in patient?s record [If Yes, STOP here]: Yes MIPS - Meds 'Current medications' to include all prescriptions, [id number] products, herbals, cannabis/cannabidiol products, and vitamin/mineral/dietary (nutritional) supplements. I have utilized all available resources to obtain, update, or review the patient?s current medications. [If Yes, STOP here]: Yes PROFEE Charge Codes Initial inpatient/observation care: [id number]
--- NOTE | 2024-04-14 18:36 | PC.NURSE ---
Pt report given to Wilmar GUY
[2024-04-14] MEDS: MAGNESIUM HYDROXIDE 30 ML UDC PO (18:53)
[2024-04-14 19:51] LABS: MRSA (Nasal) PCR NOT DETECTED (Not Detect)
[2024-04-14] MEDS: FLEETS ENEMA 1 EACH PR (20:33)
[2024-04-14] MEDS: INSULIN GLARGINE 100 UNIT/ML 3ML PEN 40 UNIT SUBCUT (20:58)
[2024-04-14] MEDS: INSULIN LISPRO 100 UNIT/ML 3ML VIAL SUBCUT (20:58)
[2024-04-14] MEDS: DOCUSATE 100 MG CAPSULE PO (20:59)
[2024-04-14] MEDS: ACETAMINOPHEN 325 MG TABLET 650 MG PO (23:08)
--- NOTE | 2024-04-14 23:22 | PC.NURSE ---
Patient c/o abdominal pain and severe discomfort, educated patient regarding straining to move his bowel since he just had left carotid endarterectomy about a week ago per his statement, fleet saline enema administered with large amount of stool evacuated after about an hour, patient states relief after bowel movement.
[2024-04-15 03:42] VITALS: BP 142/81; PULSE 67; RESP 16; TEMP 35.9; O2SAT 97
[2024-04-15 05:35] LABS: Add Manual Diff / Slide Review NO; Basophils Absolute Auto 100 /uL (0-100); Eosinophils Absolute Auto 200 /uL (0-450); Eosinophils Percent Auto 1.7 % (2-4); Hemoglobin 12.3 g/dL (13.5-17.5); Lymphocytes Absolute Auto 3100 /uL (1100-4500); Lymphocytes Percent Auto 24.9 % (25-40); Mean Corpuscular HGB Conc 33.3 % (30-36); Mean Corpuscular Hemoglobin 28.6 PG (26-34); Monocytes Absolute Auto 1300 /uL (0-900); Monocytes Percent Auto 10.1 % (3-14); Neutrophils Absolute Auto 7900 /uL (1500-7000); Neutrophils Percent Auto 62.3 % (50-75); Platelet Count 209 X10^3/uL (150-400); Red Blood Cell Count 4.31 X10^6/uL (4.5-5.9); Red Cell Distribution Width 13.6 % (11.6-14.8); White Blood Cell Count 12.7 X10^3/uL (4.5-11.0)
[2024-04-15 05:39] LABS: BUN Creatinine Ratio 43.4 (6-22); Blood Urea Nitrogen 23 mg/dL (9-20); Calcium 8.2 mg/dL (8.4-10.2); Carbon Dioxide 28 mmol/L (22-32); Chloride 99 mmol/L (98-107); Estimated Glomerular Filt Rate > 60 mL/min (>60); Glucose 234 mg/dL (80-110); HEMOLYSIS < 15 (0-50); Potassium 4.1 mmol/L (3.4-5.1); Sodium 130 mmol/L (137-145)
[2024-04-15 07:56] VITALS: BP 154/90; PULSE 74; RESP 20; TEMP 36.2; O2SAT 99
--- NOTE | 2024-04-15 08:38 | P.PN_ITS ---
Subjective Subjective Interval history: Summary: 61-year-old man with type 1 diabetes mellitus, status post left carotid endarterectomy on 04/08/2024 at [facility], presents with constipation and hyperglycemia. He had presented last week with a right-sided TIA and was found to have 90% high-grade left internal carotid artery stenosis, was transferred to [facility] for surgery. He had also been hospitalized for diabetic ketoacidosis on 03/29/2024 and discharged home. He states he has been taking his insulin. He notes lower abdominal discomfort for the past few days, increasing with small pellet-like stools yesterday but no significant bowel movement from discharge home. He is on Levemir 40 units twice daily plus 15 units of short-acting insulin 3 times daily with meals, but does not check blood sugars regularly due to difficulty with fine motor skills checking blood sugars. Surgical follow-up was planned by [facility] on 05/02/2024. In the emergency department he had urinary retention and was catheterized with 750 mL of urine output. S: Exam Vital Signs (past 8 hours): - 04/15/24 03:42 Temperature 96.7 F L Pulse Rate 67 Respiratory Rate 16 Blood Pressure 142/81 H Pulse Oximetry 97 Oxygen Delivery Method Room Air Oxygen Flow Rate 0 Narrative Exam Narrative: NAD, alert and oriented. Fluent speech. Lungs are clear, normal rate and effort. Heart is regular, no murmur gallop or rub. Abdomen is soft, non distended. Extremities are free of edema. Objective Labs 04/15/24 05:00 04/15/24 05:00 Labs: Laboratory Results - last 24 hr 04/14/24 04/14/24 04/14/24 13:30 13:38 13:52 WBC 7.7 RBC 3.85 L Hgb 11.1 L Hct 33.3 L MCV 86.4 MCH 28.9 MCHC 33.4 RDW 13.3 Plt Count 304 Neut % (Auto) 62.8 Lymph % (Auto) 21.6 L [place] % (Auto) 13.7 Eos % (Auto) 1.2 L Baso % (Auto) 0.7 Neut # (Auto) 4800 Lymph # (Auto) 1700 [place] # (Auto) 1000 H Eos # (Auto) 100 Baso # (Auto) 100 VBG pH 7.50 H VBG pCO2 33.7 L VBG pO2 40 VBG HCO3 26 VBG Total CO2 26 VBG O2 Saturation 81 H VBG Base Excess 3.3 FiO2 21 Sodium 126 L Potassium 4.7 Chloride 97 L Carbon Dioxide 25 BUN 31 H Creatinine 0.63 L Estimated GFR > 60 BUN/Creatinine Ratio 49.2 H Glucose 440 H Calcium 8.1 L Total Bilirubin 0.3 AST 27 ALT 29 Alkaline Phosphatase 103 Total Creatine Kinase 47 L Troponin I < 0.012 Total Protein 5.6 L Albumin 2.9 L Globulin 2.7 Albumin/Globulin Ratio 1.1 Lipase 85 Urine Color Urine Appearance Urine pH Ur Specific [place] Urine Protein Urine Glucose (UA) Urine Ketones Urine Occult Blood Urine Nitrate Urine Bilirubin Urine Urobilinogen Ur Leukocyte Esterase Urine RBC Urine WBC Ur Squamous Epith Cells Urine Bacteria Ur Culture Indicated? Vol Urine Centrifuged Nasal Screen MRSA (PCR) 04/14/24 04/14/24 04/14/24 15:12 16:23 18:30 WBC RBC Hgb Hct MCV MCH MCHC RDW Plt Count Neut % (Auto) Lymph % (Auto) [place] % (Auto) Eos % (Auto) Baso % (Auto) Neut # (Auto) Lymph # (Auto) [place] # (Auto) Eos # (Auto) Baso # (Auto) VBG pH VBG pCO2 VBG pO2 VBG HCO3 VBG Total CO2 VBG O2 Saturation VBG Base Excess FiO2 Sodium Potassium Chloride Carbon Dioxide BUN Creatinine Estimated GFR BUN/Creatinine Ratio Glucose Calcium Total Bilirubin AST ALT Alkaline Phosphatase Total Creatine Kinase Troponin I < 0.012 Total Protein Albumin Globulin Albumin/Globulin Ratio Lipase Urine Color Yellow Urine Appearance Clear Urine pH 7.5 Ur Specific [place] 1.010 Urine Protein Trace H Urine Glucose (UA) 3+ H Urine Ketones Negative Urine Occult Blood Negative Urine Nitrate Negative Urine Bilirubin Negative Urine Urobilinogen 0.2 Ur Leukocyte Esterase Negative Urine RBC None seen Urine WBC None seen Ur Squamous Epith Cells None seen Urine Bacteria None seen Ur Culture Indicated? Cult not indicated Vol Urine Centrifuged 10ml (spun) Nasal Screen MRSA (PCR) Not detected 04/15/24 05:00 WBC 12.7 H D RBC 4.31 L Hgb 12.3 L Hct 37.0 L MCV 86.0 MCH 28.6 MCHC 33.3 RDW 13.6 Plt Count 209 Neut % (Auto) 62.3 Lymph % (Auto) 24.9 L [place] % (Auto) 10.1 Eos % (Auto) 1.7 L Baso % (Auto) 1.0 Neut # (Auto) 7900 H Lymph # (Auto) 3100 [place] # (Auto) 1300 H Eos # (Auto) 200 Baso # (Auto) 100 VBG pH VBG pCO2 VBG pO2 VBG HCO3 VBG Total CO2 VBG O2 Saturation VBG Base Excess FiO2 Sodium 130 L Potassium 4.1 Chloride 99 Carbon Dioxide 28 BUN 23 H Creatinine 0.53 L Estimated GFR > 60 BUN/Creatinine Ratio 43.4 H Glucose 234 H D Calcium 8.2 L Total Bilirubin AST ALT Alkaline Phosphatase Total Creatine Kinase Troponin I Total Protein Albumin Globulin Albumin/Globulin Ratio Lipase Urine Color Urine Appearance Urine pH Ur Specific [place] Urine Protein Urine Glucose (UA) Urine Ketones Urine Occult Blood Urine Nitrate Urine Bilirubin Urine Urobilinogen Ur Leukocyte Esterase Urine RBC Urine WBC Ur Squamous Epith Cells Urine Bacteria Ur Culture Indicated? Vol Urine Centrifuged Nasal Screen MRSA (PCR) [facility] Medical History Stroke Hyperlipidemia Hypertension Type 1 diabetes Social History household members: family Smoking Status: Former smoker alcohol intake: current Assessment & Plan Assessment & Plan narrative: 1. Constipation. Likely postoperative. Advance bowel regimen. 2. Urinary retention due to constipation. Monitor with intermittent bladder scans and in- and out catheterization as needed. 3. Diabetes mellitus, type 1 with history of recent DKA presentation, currently hyperglycemic without ketoacidosis. 4. Status post left carotid endarterectomy 04/08/2024. Clinically stable. Postoperative follow-up planned. 5. Abdominal aortic aneurysm. Incidentally seen on recent CT scan at 3.7 cm. 6. Hypertension. Continue routine lisinopril. 7. Hyperlipidemia. Continue atorvastatin. 8. History of atrial fibrillation, with recent episode on his March 30 hospitalization. Currently in sinus rhythm. Continue to follow. Clarify Eliquis, which appears to have been discontinued since his recent hospitalizations. 9. Right lower extremity 1 cm pressure sore. Monitor. 10. DVT prophylaxis. Place sequential compression devices. 11. Code status: Full code. Plan: -admit to observation -bowel regimen -monitor for urinary retention -continue routine home medications -routine insulin with sliding scale coverage -possible discharge home tomorrow Time-Based Coding :: 20 min spent with patient and on the chart (including review of chart, obtaining history, exam, reviewing outside data, placing orders, documenting exam and treatment plan, and counseling patient) on 04/15. Quality VTE Deep Vein Thrombosis/Pulmonary Embolism Present on Admission: No
[2024-04-15] MEDS: INSULIN LISPRO 100 UNIT/ML 3ML VIAL SUBCUT ×2 (08:52→12:16)
[2024-04-15] MEDS: INSULIN GLARGINE 100 UNIT/ML 3ML PEN 40 UNIT SUBCUT (08:53)
[2024-04-15] MEDS: DOCUSATE 100 MG CAPSULE PO (09:16)
[2024-04-15] MEDS: lisinopriL 10 MG TABLET PO (09:16)
[2024-04-15] MEDS: ASPIRIN EC 325 MG TABLET 650 MG PO (09:17)
[2024-04-15] MEDS: MORPHINE 2 MG/ML INJ IV (09:17)
[2024-04-15] MEDS: PANTOPRAZOLE DR 40 MG TABLET PO (09:17)
[2024-04-15] MEDS: ATORVASTATIN 20 MG TABLET 80 MG PO (09:17)
--- NOTE | 2024-04-15 10:25 | P.DS_ITS ---
History of Present Illness History of Present Illness Chief complaint: constipation/high Blood sugar Narrative: From H&P: 61-year-old man with type 1 diabetes mellitus, status post left carotid endarterectomy on 04/08/2024 at [facility], presents with constipation and hyperglycemia. He had presented last week with a right-sided TIA and was found to have 90% high-grade left internal carotid artery stenosis, was transferred to [facility] for surgery. He had also been hospitalized for diabetic ketoacidosis on 03/29/2024 and discharged home. He states he has been taking his insulin. He notes lower abdominal discomfort for the past few days, increasing with small pellet-like stools yesterday but no significant bowel movement from discharge home. He is on Levemir 40 units twice daily plus 15 units of short-acting insulin 3 times daily with meals, but does not check blood sugars regularly due to difficulty with fine motor skills checking blood sugars. Surgical follow-up was planned by [facility] on 05/02/2024. In the emergency department he had urinary retention and was catheterized with 750 mL of urine output. Discharge Providers Provider Date of admission: 04/14/24 17:59 Discharge Date: 04/15/24 Primary care physician: HARMEET Banda Consults: 04/14/24 18:42 Consult to Discharge Planning Routine Comment: 04/15/24 08:58 Consult to Dietitian, Adult Routine Comment: Reason For Exam: Diabetes education Discharge provider: Kolby Yost MD Summary Hospital Course Discharge Diagnosis: 1. Constipation, present on admission and resolved. Likely postoperative. Advance bowel regimen. 2. Urinary retention due to constipation, present on admission and resolved. Monitor with intermittent bladder scans and in- and out catheterization as needed. 3. Diabetes mellitus, type 1 with history of recent DKA presentation, present on admission and stable. Currently hyperglycemic without ketoacidosis. 4. Status post left carotid endarterectomy 04/08/2024, present on admission and clinically stable. Postoperative follow-up planned. 5. Abdominal aortic aneurysm, present on admission and stable. Incidentally seen on recent CT scan at 3.7 cm. 6. Hypertension, present on admission and stable. Continue routine lisinopril. 7. Hyperlipidemia, present on admission and stable. Continue atorvastatin. 8. History of atrial fibrillation, present on admission and stable. Recent episode on his March 30 hospitalization. Currently in sinus rhythm. Continue to follow. Clarify Eliquis, which appears to have been discontinued since his recent hospitalizations. 9. Right lower extremity 1 cm pressure sore. Present on admission and active. 10. DVT prophylaxis. Place sequential compression devices. 11. Code status: Full code. Hospital Course: He was admitted with constipation and urine retention and underwent a bowel program with good success. He was able to urinate without difficulty. He had no acute neurologic symptoms or signs. He was instructed by [facility] to hold apixaban and use aspirin 650 mg p.o. daily. He was a video follow up. He will continue this plan until follow up. Status at Discharge Cognitive/behavioral status at discharge: oriented Functional status at discharge: independent ambulation Overall status at discharge: patient is back to baseline Time Spent with Patient Time spent: Greater than 30 minutes Exam Vital Signs (past 8 hours): - 04/15/24 03:42 04/15/24 07:56 04/15/24 08:00 Temperature 96.7 F L 97.1 F L Pulse Rate 67 74 Respiratory Rate 16 20 Blood Pressure 142/81 H 154/90 H Pulse Oximetry 97 99 Oxygen Delivery Method Room Air Oxygen Flow Rate 0 Oxygen Delivery Method Room Air Oxygen Flow Rate 0 Narrative Exam Narrative: NAD, alert and oriented. Fluent speech. Lungs are clear, normal rate and effort. Heart is regular, no murmur gallop or rub. Abdomen is soft, non distended. Extremities are free of edema. Cranial nerves are grossly intact, no facial droop, normal speech, EOMI. Negative pronator drift, good straight leg raises bilaterally. Objective ECG Impression: Normal sinus rhythm at 74bpm, left axis deviation, septal infarct Imaging Abdominal x-ray: Radiologist's impression: Moderate fecal debris in the right colon without obstruction Labs 04/15/24 05:00 04/15/24 05:00 Labs: Laboratory Results - last 24 hr 04/14/24 04/14/24 04/14/24 13:30 13:38 13:52 WBC 7.7 RBC 3.85 L Hgb 11.1 L Hct 33.3 L MCV 86.4 MCH 28.9 MCHC 33.4 RDW 13.3 Plt Count 304 Neut % (Auto) 62.8 Lymph % (Auto) 21.6 L [place] % (Auto) 13.7 Eos % (Auto) 1.2 L Baso % (Auto) 0.7 Neut # (Auto) 4800 Lymph # (Auto) 1700 [place] # (Auto) 1000 H Eos # (Auto) 100 Baso # (Auto) 100 VBG pH 7.50 H VBG pCO2 33.7 L VBG pO2 40 VBG HCO3 26 VBG Total CO2 26 VBG O2 Saturation 81 H VBG Base Excess 3.3 FiO2 21 Sodium 126 L Potassium 4.7 Chloride 97 L Carbon Dioxide 25 BUN 31 H Creatinine 0.63 L Estimated GFR > 60 BUN/Creatinine Ratio 49.2 H Glucose 440 H Calcium 8.1 L Total Bilirubin 0.3 AST 27 ALT 29 Alkaline Phosphatase 103 Total Creatine Kinase 47 L Troponin I < 0.012 Total Protein 5.6 L Albumin 2.9 L Globulin 2.7 Albumin/Globulin Ratio 1.1 Lipase 85 Urine Color Urine Appearance Urine pH Ur Specific Cortez Urine Protein Urine Glucose (UA) Urine Ketones Urine Occult Blood Urine Nitrate Urine Bilirubin Urine Urobilinogen Ur Leukocyte Esterase Urine RBC Urine WBC Ur Squamous Epith Cells Urine Bacteria Ur Culture Indicated? Vol Urine Centrifuged Nasal Screen MRSA (PCR) 04/14/24 04/14/24 04/14/24 15:12 16:23 18:30 WBC RBC Hgb Hct MCV MCH MCHC RDW Plt Count Neut % (Auto) Lymph % (Auto) [place] % (Auto) Eos % (Auto) Baso % (Auto) Neut # (Auto) Lymph # (Auto) [place] # (Auto) Eos # (Auto) Baso # (Auto) VBG pH VBG pCO2 VBG pO2 VBG HCO3 VBG Total CO2 VBG O2 Saturation VBG Base Excess FiO2 Sodium Potassium Chloride Carbon Dioxide BUN Creatinine Estimated GFR BUN/Creatinine Ratio Glucose Calcium Total Bilirubin AST ALT Alkaline Phosphatase Total Creatine Kinase Troponin I < 0.012 Total Protein Albumin Globulin Albumin/Globulin Ratio Lipase Urine Color Yellow Urine Appearance Clear Urine pH 7.5 Ur Specific Cortez 1.010 Urine Protein Trace H Urine Glucose (UA) 3+ H Urine Ketones Negative Urine Occult Blood Negative Urine Nitrate Negative Urine Bilirubin Negative Urine Urobilinogen 0.2 Ur Leukocyte Esterase Negative Urine RBC None seen Urine WBC None seen Ur Squamous Epith Cells None seen Urine Bacteria None seen Ur Culture Indicated? Cult not indicated Vol Urine Centrifuged 10ml (spun) Nasal Screen MRSA (PCR) Not detected 04/15/24 05:00 WBC 12.7 H D RBC 4.31 L Hgb 12.3 L Hct 37.0 L MCV 86.0 MCH 28.6 MCHC 33.3 RDW 13.6 Plt Count 209 Neut % (Auto) 62.3 Lymph % (Auto) 24.9 L [place] % (Auto) 10.1 Eos % (Auto) 1.7 L Baso % (Auto) 1.0 Neut # (Auto) 7900 H Lymph # (Auto) 3100 [place] # (Auto) 1300 H Eos # (Auto) 200 Baso # (Auto) 100 VBG pH VBG pCO2 VBG pO2 VBG HCO3 VBG Total CO2 VBG O2 Saturation VBG Base Excess FiO2 Sodium 130 L Potassium 4.1 Chloride 99 Carbon Dioxide 28 BUN 23 H Creatinine 0.53 L Estimated GFR > 60 BUN/Creatinine Ratio 43.4 H Glucose 234 H D Calcium 8.2 L Total Bilirubin AST ALT Alkaline Phosphatase Total Creatine Kinase Troponin I Total Protein Albumin Globulin Albumin/Globulin Ratio Lipase Urine Color Urine Appearance Urine pH Ur Specific [place] Urine Protein Urine Glucose (UA) Urine Ketones Urine Occult Blood Urine Nitrate Urine Bilirubin Urine Urobilinogen Ur Leukocyte Esterase Urine RBC Urine WBC Ur Squamous Epith Cells Urine Bacteria Ur Culture Indicated? Vol Urine Centrifuged Nasal Screen MRSA (PCR) [facility] Medical History Stroke Hyperlipidemia Hypertension Type 1 diabetes Social History household members: family Smoking Status: Former smoker alcohol intake: current Discharge Assessment & Plan Assessment and Plan Assessment: 1. Constipation, present on admission and resolved. Likely postoperative. Advance bowel regimen. 2. Urinary retention due to constipation, present on admission and resolved. Monitor with intermittent bladder scans and in- and out catheterization as needed. 3. Diabetes mellitus, type 1 with history of recent DKA presentation, present on admission and stable. Currently hyperglycemic without ketoacidosis. 4. Status post left carotid endarterectomy 04/08/2024, present on admission and clinically stable. Postoperative follow-up planned. 5. Abdominal aortic aneurysm, present on admission and stable. Incidentally seen on recent CT scan at 3.7 cm. 6. Hypertension, present on admission and stable. Continue routine lisinopril. 7. Hyperlipidemia, present on admission and stable. Continue atorvastatin. 8. History of atrial fibrillation, present on admission and stable. Recent episode on his March 30 hospitalization. Currently in sinus rhythm. Continue to follow. Clarify Eliquis, which appears to have been discontinued since his recent hospitalizations. 9. Right lower extremity 1 cm pressure sore. Present on admission and active. 10. DVT prophylaxis. Place sequential compression devices. 11. Code status: Full code. Plan of Treatment: Discharge home, PCP within a week. He will use aspirin 650 daily and continue to hold apixaban which he was taking for PAF. Ultimately the decision to resume this will be left to [facility] vascular surgery. He was a follow up on May 02 by video chat. Discharge Plan Discharge Plan Patient Disposition: Home Provider Discharge Comment: Stable for discharge home after constipation and retention resolved. Holding Eliquis per [facility] and continue an aspirin 650 daily until video follow up weeks. Discharge orders & Medications Prescriptions: Continued atorvastatin 80 mg tablet 80 mg PO DAILY Patient Comments: TAKE 1 TABLET BY MOUTH ONCE DAILY pantoprazole 40 mg tablet,delayed release (DR/EC) 40 mg PO DAILY Levemir U-100 Insulin 100 unit/mL solution 40 unit SUBCUT BID Patient Comments: INJECT 40 UNITS SUBCUTANEOUSLY TWICE DAILY NEEDED lisinopril 10 mg tablet 10 mg PO DAILY Patient Comments: pt out of medication, unsure of last dose acetaminophen [Tylenol] 325 mg Tablet 650 mg PO Q6H PRN (Reason: Pain (Scale Score 4-6)) aspirin 325 mg Capsule 650 mg PO DAILY Medication counseling provided by Pharmacist: Yes Follow up/Referrals: Amaya Jackson ARNP [Primary Care Provider] - Discharge Health Status Multidrug resistant organism: No MDRO Diet/Activity/Treatments Diet: Carb-consistent/Diabetic Skin/Wound/Dressing Care Report to your healthcare provider any signs of infection, such as:: chills, fever and increased pain Visit Report/Discharge Packet Stand Alone Forms: Patient Portal/API, Stroke Signs & Symptoms Discharge Data Primary Care Provider: Amaya Jackson Attending Provider: aLnce Loredo V Admit Date/Time: 04/14/24 17:59 Quality VTE Deep Vein Thrombosis/Pulmonary Embolism Present on Admission: No
--- NOTE | 2024-04-15 11:47 | CM.DANOTE ---
Addendum entered by SAMMY Bundy 04/15/24 12:58: ADD: Per Medicaid transport, taxi services are full today and they scheduled with [facility] transport for around [phone] today. SW called [facility] and they will pick pt up at the ED entrance and will call SW with closer ETA closer to 1400. TOÑITO updated RN and FANI and pt. BF Original Note: Patient is a 63 male who was admitted OBS Status on 04/14/24 for Constipation/Urinary Retention. Pt has [employer] ADV and [employer] for insurance and his PCP was Amaya Jackson but now has appointment 04/23/24 with a new PCP at [facility]. EMR was reviewed. Per MD, pt with hx of poorly controlled diabetes and here last week and transferred to [facility] and then was admitted for DKA 03/29/24 and discharged home. Per MD, pt had large bm and voiding and medically stable to discharge home today. Nurse Ob met bedside with pt for diabetes education and recommendations. SW met bedside with pt and explained role and he confirms he lives at home in [place] with his brother and pt states we take care of each other, my brother isn't much better off than me. Pt states he has a cane at home but rarely uses it, still drives and his brother does not drive, and pt denies any DPOA. SW provided POA brochure and copy and discussed importance of completing and pt agreeable to take home with him to review. Pt confirms his contact Destiney is his ex-girlfriend and they remain on good terms and still communicate but she is currently at SNF and pt is unsure if for rehab or will turn into LTC so she is not available for in-person support at this time. Pt states his next closest family is his niece and nephew who live in [place]. Pt denies any hx of HH or SNF and confirms that he is currently in transition between doctors as he had Amaya Jackson but now establishing with his brother's doctor on Apr 23 next month at [facility]. Pt denies any current discharge needs and preference is home today and requesting Medicaid taxi as pt was brought in by EMS and brother doesn't drive. No pharmacy stops and SW completed Medicaid transport form and faxed. TOÑITO updated RN and MD. Plan: SW to follow for plan of discharge home via Medicaid Taxi and awaiting return call from transport on time of taxi availability. SAMMY Bundy Discharge Planning/Care Management CM Discharge Assessment Start: 04/15/24 11:45 Freq: Status: Active Protocol: Document 04/15/24 11:45 BF (Rec: 04/15/24 11:47 BF [id number]) Discharge Planning Assessment Assigned Mobile Qa Tester SAMMY Lira DPOA/Assigned Designee Name none, provided pwk Advance Directives? No Advance Directives on File No History Provided By Patient,Medical Record Has Patient been admitted in last 30 Yes days? Comment Admitted on 03/29/24 this month for DKA and discharged home with [employer] taxi Prior Living Arrangements Mobile home Household Members family Comment Lives with brother Type of transporation used prior to Drives own vehicle admit Independent with ADL's Yes Is patient alert and oriented? Yes Needs Assistance With Managing Medications Comment Poorly controlled Diabetes Caregiver for Another Yes: he and brother help each other DME Already Rented / Owned Cane Barriers to Discharge No Comment Patient will need Medicaid taxi upon d/c due to patient not able to identify any friends or family and patient arrived to via ambulance. Discharge Plan Home Transportation Arrangement Medicaid taxi as brother doesn 't drive and other family in [place] Additional Comment Could benefit from Diabetes education outpt but in between PCPs Whiteboard Updated in Patient Room with Yes name and ext. # of Mobile Qa Tester Review Status In Process Please Provide Date Initial DC 04/15/24 Assessment Was Performed Next Review Type Continued Stay Review
[2024-04-15 12:00] VITALS: BP 116/68; PULSE 73; RESP 20; TEMP 36.1; O2SAT 98
--- NOTE | 2024-04-15 12:12 | DIET.CONS ---
Dietary Consultation Note Admission Date: 04/14/2024 17:59 Assessment: 63 y M presents for constipation and hyperglycemia. Nutrition consulted for DM educ. Met with pt at bedside. He has set up PCP appt on 04/23 and would like CGM d/t difficulty checking BG w/ glucometer. No difficulty w/ insulin injections. Reports he may have forgotten to take some doses of insulin recently d/t not feeling well with c/o constipation. Diet recall: yogurt and fruit hotdog or hamburger steak/beef and potatoes/rice diet soda, milk, juice, water Does not use insulin:carb ratio for bolus. Ht: 182.88 cm Wt: 109.316 kg BMI: 32.6 UBW: 100.5 kg on 03/29/24 Last BM: 04/14/24 (04/14/24 22:00) MNA: 11 Christoph Score: 20 Diet: 04/15/24 Breakfast Carbohydrate Consistent Diet Diet Modifications: Carbohydrate level: Large (4 CHO) Reflex DM orders: No Labs: RBC 4.31 X10^6/uL (4.5-5.9) L 04/15/24 05:00 Hgb 12.3 g/dL (13.5-17.5) L 04/15/24 05:00 Hct 37.0 % (41-53) L 04/15/24 05:00 Creatinine 0.53 mg/dL (0.66-1.25) L 04/15/24 05:00 Nutrition Diagnosis: Altered nutrition related lab values (A1c) r/t endocrine dysfunction aeb >14 A1c on 03/30/24 Interventions: 1. Diabetes nutrition related educ provided 2. Recc referral to outpatient [facility] from PCP Monitoring/Evaluations: po intakes, BG, f/u PRN Electronically Signed by: Kat Victor 04/15/24 12:12 [facility] [address]
== END 2024-04-15 14:33 | disposition home or self-care (01) ==
LOC: ED 13:46 → AC 17:59 → ICU 18:10
PROVIDERS: Admitting Provider Internal Medicine; Emergency Provider Emergency Medicine; PCP Nurse Practitioner; Referring Provider Emergency Medicine; Visit Provider Internal Medicine
DX: K59.00 Constipation, unspecified (principal); R33.9 Retention of urine, unspecified; E10.65 Type 1 diabetes mellitus with hyperglycemia; Z79.4 Long term (current) use of insulin; I71.40 Abdominal aortic aneurysm, without rupture, unspecified; I10 Essential (primary) hypertension; E78.5 Hyperlipidemia, unspecified; L89.899 Pressure ulcer of other site, unspecified stage
CPT/HCPCS: 36415; 51701; 51798; 74018; 80048; 80053; 81001; 81003; 82550; 82805; 82962; 83690; 84484; 85025; 87797; 93005; 96361; 96372; 96374; 96375; 96376; 99284; G0378; J1815; J2270; J2405

== ENCOUNTER 2024-04-16 14:18 | Emergency (ER) | payer OTHER, MEDICAID, SELFPAY ==
[2024-04-14 18:45] VITALS: BMI 32.6
[2024-04-16] VITALS (7 sets, daily range): BP systolic 107–160; BP diastolic 65–80; PULSE 73–86; RESP 14–22; TEMP 37.1; O2SAT 96–98
--- NOTE | 2024-04-16 14:35 | EKG_ITS ---
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
--- NOTE | 2024-04-16 14:35 | DI.RAD.S_ITS ---
PROCEDURE: XR CHEST 1V INDICATIONS: chest pain TECHNIQUE: One view of the chest was acquired. COMPARISON: [facility], CR, XR CHEST 1V, 03/29/2024, 16:47. FINDINGS: Surgical changes and devices: None. Lungs and pleura: Lungs are clear. No pleural effusions or pneumothorax. Mediastinum: Mediastinal contours appear normal. Heart size is normal. Bones and chest wall: No suspicious bony lesions. Overlying soft tissues appear unremarkable. IMPRESSION: No acute cardiopulmonary abnormality is seen. Dictated by: Thomas Whiting M.D. on 04/16/2024 at 15:03 Approved by: Thomas Whiting M.D. on 04/16/2024 at 15:03
[2024-04-16 15:26] LABS: Add Manual Diff / Slide Review NO; Basophils Absolute Auto 100 /uL (0-100); Basophils Percent Auto 0.9 % (0-2); Eosinophils Absolute Auto 100 /uL (0-450); Eosinophils Percent Auto 1.3 % (2-4); Hematocrit 32.7 % (41-53); Hemoglobin 10.9 g/dL (13.5-17.5); Lymphocytes Absolute Auto 1800 /uL (1100-4500); Lymphocytes Percent Auto 21.5 % (25-40); Mean Corpuscular HGB Conc 33.3 % (30-36); Mean Corpuscular Hemoglobin 28.8 PG (26-34); Mean Corpuscular Volume 86.4 fL (80-100); Monocytes Absolute Auto 900 /uL (0-900); Monocytes Percent Auto 11.5 % (3-14); Neutrophils Absolute Auto 5300 /uL (1500-7000); Neutrophils Percent Auto 64.8 % (50-75); Platelet Count 322 X10^3/uL (150-400); Red Blood Cell Count 3.78 X10^6/uL (4.5-5.9); Red Cell Distribution Width 13.3 % (11.6-14.8); White Blood Cell Count 8.2 X10^3/uL (4.5-11.0)
[2024-04-16 15:34] LABS: INR 0.9 (0.9-1.3)
[2024-04-16 15:37] LABS: PTT Partial Thromboplastin Tim 29 SECONDS (25.1-36.5)
[2024-04-16 15:39] LABS: Alanine Aminotransferase 45 IU/L (<50); Albumin 2.8 g/dL (3.5-5.0); Alkaline Phosphatase 86 U/L (38-126); Aspartate Aminotransferase 39 IU/L (17-59); BUN Creatinine Ratio 39.7 (6-22); Bilirubin Total 0.3 mg/dL (0.2-1.3); Blood Urea Nitrogen 25 mg/dL (9-20); Calcium 8.5 mg/dL (8.4-10.2); Carbon Dioxide 24 mmol/L (22-32); Chloride 103 mmol/L (98-107); Creatine Kinase 54 U/L (55-170); Estimated Glomerular Filt Rate > 60 mL/min (>60); Globulin 2.9 g/dL (1.7-4.1); Glucose 309 mg/dL (80-110); HEMOLYSIS < 15 (0-50); Lipase 50 U/L (23-300); Magnesium 1.7 mg/dL (1.6-2.3); Potassium 4.3 mmol/L (3.4-5.1); Sodium 130 mmol/L (137-145); Total Protein 5.7 g/dL (6.3-8.2)
[2024-04-16 15:50] LABS: NT-proBNP (BNP-Adult 18+) 100 pg/mL (<125); Troponin I < 0.012 ng/mL (0.01-0.034)
--- NOTE | 2024-04-16 18:29 | ED_ITS ---
HPI - Abdominal Pain General Chief Complaint: Syncope Stated Complaint: Constipation Time Seen by Provider: 04/16/24 17:52 Source: EMS Mode of arrival: EMS History of Present Illness HPI narrative: 63-year-old male with history of poorly-controlled insulin dependent diabetes, carotid artery stenosis status post carotid endarterectomy in mid March 2024, HTN, HLD presents by EMS from home for lightheadedness while straining to have a bowel movement at home. Discharged yesterday after being admitted for urinary retension. No medications taken at home prior to arrival. Related Data Home Medications Medication Instructions Recorded Confirmed atorvastatin 80 mg tablet 80 mg PO DAILY 06/20/22 04/14/24 insulin detemir U-100 100 unit/mL 40 unit SUBCUT BID 06/20/22 04/14/24 subcutaneous solution (Levemir U-100 Insulin) lisinopril 10 mg tablet 10 mg PO DAILY 06/20/22 04/14/24 pantoprazole 40 mg tablet,delayed 40 mg PO DAILY 06/20/22 04/14/24 release acetaminophen 325 mg tablet 650 mg PO Q6H PRN Pain (Scale 04/14/24 04/14/24 (Tylenol) Score 4-6) aspirin 325 mg capsule 650 mg PO DAILY 04/14/24 04/14/24 Allergies Allergy/AdvReac Type Severity Reaction Status Date / Time fentanyl AdvReac Verified 02/08/22 11:13 hydrocodone AdvReac ITCHING Verified 04/14/24 13:46 oxycodone AdvReac ITCHING Verified 04/14/24 13:46 Patient History Medical History Stroke Hyperlipidemia Hypertension Type 1 diabetes Social History household members: family Smoking Status: Former smoker alcohol intake: current Smoking Status: Former smoker alcohol intake frequency: holidays/special occasions only Substance Use Type: marijuana Exam Initial Vital Signs Initial Vital Signs: Vital Signs Temperature 98.8 F 04/16/24 14:10 Pulse Rate 86 04/16/24 14:10 Respiratory Rate 22 04/16/24 14:10 Blood Pressure 107/68 04/16/24 14:10 Pulse Oximetry 98 04/16/24 14:10 Oxygen Delivery Method Room Air 04/16/24 14:10 Const: Awake, alert, frail, appears chronically unwell Cardiac: regular rate, regular rhythm RESP: unlabored, clear bilaterally, no wheezing GI: Soft, nontender, nondistended Skin: Warm, Dry, intact, CEA site L neck clean, dry, intact Neuro: AO x3, CN II-XII grossly intact, moves all extremities Course Orders Ordered: Discontinued Medications Aspirin (Aspirin 81 Mg Chew Tab) 324 mg PO NOW ONE Stop: 04/16/24 14:36 Last Admin: 04/16/24 14:53 Dose: Not Given Documented By: OSMAN Glycerin (Glycerin Supp Adult 1 Supp) 1 each NE NOW ONE Stop: 04/16/24 18:30 Last Admin: 04/16/24 18:56 Dose: 1 each Documented By: MARCELLUS Lactulose (Lactulose 20 Gm/30 Ml Solution) 20 gm PO NOW ONE Stop: 04/16/24 18:30 Last Admin: 04/16/24 18:56 Dose: 20 gm Documented By: MARCELLUS Polyethylene Glycol/Electrolytes ([id number]/Sod Sulf,Bicarb,Cl/Kcl 4,000 Ml Solution) 4,000 ml PO NOW ONE Stop: 04/16/24 18:30 Last Admin: 04/16/24 18:57 Dose: 4,000 ml Documented By: MARCELLUS Vital Signs Vital signs: Vital Signs - 8 hr 04/16/24 14:10 04/16/24 15:20 04/16/24 15:21 Temperature 98.8 F Pulse Rate 86 79 79 Respiratory Rate 22 Blood Pressure 107/68 Pulse Oximetry 98 98 98 Oxygen Delivery Method Room Air 04/16/24 15:21 04/16/24 15:30 04/16/24 15:30 Temperature Pulse Rate 76 Respiratory Rate 14 Blood Pressure 129/76 108/65 Pulse Oximetry 98 Oxygen Delivery Method 04/16/24 16:00 04/16/24 16:00 04/16/24 17:30 Temperature Pulse Rate 73 74 Respiratory Rate 16 16 Blood Pressure 127/73 160/80 H Pulse Oximetry 98 96 Oxygen Delivery Method Room Air MDM - Abdominal Pain Differential Diagnosis Differential diagnosis: Likely abdominal pain, constipation and other (hyperglycemia) Lab Data 04/16/24 15:12 04/16/24 15:12 Labs: Lab Results 04/16/24 Range/Units 15:12 WBC 8.2 (4.5-11.0) X10^3/uL RBC 3.78 L (4.5-5.9) X10^6/uL Hgb 10.9 L (13.5-17.5) g/dL Hct 32.7 L (41-53) % MCV 86.4 (80-100) fL MCH 28.8 (26-34) PG MCHC 33.3 (30-36) % RDW 13.3 (11.6-14.8) % Plt Count 322 (150-400) X10^3/uL Neut % (Auto) 64.8 (50-75) % Lymph % (Auto) 21.5 L (25-40) % [place] % (Auto) 11.5 (3-14) % Eos % (Auto) 1.3 L (2-4) % Baso % (Auto) 0.9 (0-2) % Neut # (Auto) 5300 (2560-8497) /uL Lymph # (Auto) 1800 (6455-2073) /uL [place] # (Auto) 900 (0-900) /uL Eos # (Auto) 100 (0-450) /uL Baso # (Auto) 100 (0-100) /uL PT 10.0 (9.4-12.5) SECONDS INR 0.9 (0.9-1.3) APTT 29 (25.1-36.5) SECONDS Sodium 130 L (137-145) mmol/L Potassium 4.3 (3.4-5.1) mmol/L Chloride 103 (98-107) mmol/L Carbon Dioxide 24 (22-32) mmol/L BUN 25 H (9-20) mg/dL Creatinine 0.63 L (0.66-1.25) mg/dL Estimated GFR > 60 (>60) mL/min BUN/Creatinine Ratio 39.7 H (6-22) Glucose 309 H (80-110) mg/dL Calcium 8.5 (8.4-10.2) mg/dL Magnesium 1.7 (1.6-2.3) mg/dL Total Bilirubin 0.3 (0.2-1.3) mg/dL AST 39 (17-59) IU/L ALT 45 (<50) IU/L Alkaline Phosphatase 86 (38-126) U/L Total Creatine Kinase 54 L (55-170) U/L Troponin I < 0.012 (0.01-0.034) ng/mL NT-Pro-B Natriuret Pep 100 (<125) pg/mL Total Protein 5.7 L (6.3-8.2) g/dL Albumin 2.8 L (3.5-5.0) g/dL Globulin 2.9 (1.7-4.1) g/dL Albumin/Globulin Ratio 1.0 (1.0-2.8) Lipase 50 (23-300) U/L ECG Data Interpretation: Normal sinus rhythm at 86 beats per minute, normal NE, QTC 404 MDM Narrative Medical decision making narrative: Patient presenting for feeling lightheaded while straining to have a bowel movement. Patient noted to be constipation at his last visit to the ER on 04/14, nursing note from 04/14 at 23:22 shows that nursing staff administered an enema with evacuation of large stool. Patient was not on any laxatives at home. Laboratory work is overall consistent with the patient's baseline. He has some hyperglycemia here, he has very poor control of his diabetes and overall appears very apathetic about his health. He frequently ask nursing staff for help with basic tasks such as lifting his pants, however when encouraged by nursing staff he was able to perform these tasks independently in his able to ambulate without assistance. cinder pit worker talk to patient about home health care, patient has an upcoming primary care appointment and he was encouraged to discuss home health care options with the primary care doctor. Patient given gal of GoLYTELY to go home with to help encourage bowel movements Discharge Plan Departure Patient Disposition: Home Clinical Impression: Constipation Instructions: DI for Constipation Activity Restrictions/Additional Instructions: Drink the GoLYTELY as follows: 8 oz 2-3 times daily until a bowel movement happens. Afterwards you need to start daily MiraLax with goal of 1 soft bowel movement daily. Do not strain too hard as this may risk you passing out. Talk to your new primary care doctor about getting set up with home health if needed Prescriptions: No Action atorvastatin 80 mg tablet 80 mg PO DAILY Patient Comments: TAKE 1 TABLET BY MOUTH ONCE DAILY pantoprazole 40 mg tablet,delayed release (DR/EC) 40 mg PO DAILY Levemir U-100 Insulin 100 unit/mL solution 40 unit SUBCUT BID Patient Comments: INJECT 40 UNITS SUBCUTANEOUSLY TWICE DAILY NEEDED lisinopril 10 mg tablet 10 mg PO DAILY Patient Comments: pt out of medication, unsure of last dose acetaminophen [Tylenol] 325 mg Tablet 650 mg PO Q6H PRN (Reason: Pain (Scale Score 4-6)) aspirin 325 mg Capsule 650 mg PO DAILY Referrals: Amaya Jackson ARNP [Primary Care Provider] - Stand Alone Forms: Patient Portal/API
--- NOTE | 2024-04-16 18:55 | CM.SWNOTE ---
ED CHIEF FUNDRAISING OFFICER Note Patient is 63 y/o male who presents to ED via EMS due to concern for syncopal episode and abdominal pain. Patient was just discharged from acute care yesterday due to concern for Constipation and Urinary Retention, previously patient had CEA surgery at [facility] last week and prior to that was admitted at due to concern for DKA. Each time patient was discharged to home with no additional support. It is reported that patient has a new scheduled PCP appt through [facility] on 04/23/24 and patient has [facility] f/u telehealth appt on 05/02/24. Patient has [employer] and Medicaid insurance. CHIEF FUNDRAISING OFFICER enters room to meet with patient, patient presents A/Ox4, patient states he resides in [place] with brother and they take care of each other. Patient endorses he is able to ambulate at home, and manage ADLs, patient states he drives. Patient endorses he will need transport upon d/c. In the past patient has discharged via Medicaid taxi. Patient endorses he has no friends or family that could provide him a ride home and patient states he does not have funds to pay for transport. Patient states he has a nurse that lives next door, CHIEF FUNDRAISING OFFICER encourages patient to seek assistance if needed. CHIEF FUNDRAISING OFFICER encourages patient to f/u with new PCP appt and telehealth appt. CHIEF FUNDRAISING OFFICER encourages patient to talk about Home Health with new PCP if appropriate. CHIEF FUNDRAISING OFFICER calls after hours medicaid [employer] and it is reported that they are not able to secure a ride for patient after hours. Plan: patient to d/c to home via taxi voucher, patient to f/u with outpatient appts and to set up home health with PCP if needed. Gretchen Macias, STREET LIGHT LAMP CLEANER
[2024-04-16] MEDS: LACTULOSE 20 GM/30 ML SOLUTION PO (18:56)
[2024-04-16] MEDS: GLYCERIN SUPP ADULT 1 SUPP 1 EACH PR (18:56)
[2024-04-16] MEDS: PEG3350/SOD SULF,BICARB,CL/KCL 4,000 ML SOLUTION 4000 ML PO (18:57)
--- NOTE | 2024-04-16 19:17 | PC.NURSE ---
Patient reports feeling weak and requests someone to help take care of him at home. SAMMY Godinez has been directly involved with the patient attempting to work towards getting him help at home. Dr. Александр webster.
--- NOTE | 2024-04-16 19:50 | PC.NURSE ---
193 Patient unable to have BM after suppository, patient would like to stay and be admitted, does not feel he can take care of self at home. Patient ambulates to bathroom without assistance, he does request help pulling up and down pants. Complains of feeling lightheaded, vital signs within normal limits. Dr. Fountain aware, ok to [place]. Patient wheeled to [employer]. Got out of wheelchair and walked to taxi with steady gait without assistance.
== END 2024-04-16 19:53 | disposition home or self-care (01) ==
PROVIDERS: Emergency Medicine; Emergency Provider Emergency Medicine; PCP Nurse Practitioner
DX: K59.00 Constipation, unspecified (principal); R07.9 Chest pain, unspecified
CPT/HCPCS: 36415; 71045; 80053; 82550; 83690; 83735; 83880; 84484; 85025; 85610; 85730; 93005; 99284